=== PATIENT | male | born 1935 | race Caucasian/White ===

== ENCOUNTER → 2016-07-16 11:35 | Day surgery (SDC) | payer MEDICARE, OTHER ==
[~2016-07-16 11:35] MED LIST: Buffered Lidocaine 1% SYR 3ML* 3 ML/SYR SYRINGE INTRADERM ONE; Buffered Lidocaine 1% SYR 3ML* 3 ML/SYR SYRINGE ONE; Famotidine IV* 10 MG/ML 2 ML (20 mg) IV ONE; Famotidine IV* 10 MG/ML 2 ML (20 mg) ONE; KETAMINE HCL* 50 MG/ML 10 ML VIAL ONE; Lidocain 1% EPI 1:100,000 * 30 ML MDV ONE; Midazolam* 1 MG/ML 2 ML VIAL (2 MG) ONE; Propofol* 10 MG/ML 20 ML BTL IV PUSH ONE; ceFAZolin 2 GM PREMIX (*) 2 GM/50 ML BAG IVPB ONE; fentaNYL* 50 MCG/ML 2 ML VIAL (100 MCG VIAL) IV PRN; fentaNYL* 50 MCG/ML 2 ML VIAL (100 MCG VIAL) ONE; oxyCODONE/Acetamin 5/325 MG* TAB PO PRN
[2016-07-16 17:14] VITALS: BP 137/78
== END | disposition home or self-care (01) ==
LOC: OR 11:35
PROVIDERS: ATTEND Plastic Surgery
DX: D04.39 Carcinoma in situ of skin of other parts of face (principal); L57.0 Actinic keratosis; J84.10 Pulmonary fibrosis, unspecified; Z85.820 Personal history of malignant melanoma of skin
CPT/HCPCS: 88305; 88331; 88332; J0690; J2250; J2704; J3010

== ENCOUNTER 2016-11-02 21:12 | Emergency (ER) | payer MEDICARE, OTHER ==
[2016-11-03] MEDS ORDERED: Albuterol/Ipratropium NEB.SOL* Albuterol 2.5 MG/Ipratropium 0.5 MG 3 ML INH ONE (00:07)
[2016-11-03 00:53] LABS: Hematocrit 44 % (42-52); Hemoglobin 14.4 g/dl (14.0-18.0); Mean Corpuscular HGB Conc 33 g/dl (31-36); Mean Corpuscular Hemoglobin 31 pg (27-31); Mean Corpuscular Volume 94 fL (80-94); Mean Platelet Volume 9 um3 (7.4-10.4); Red Blood Count 4.66 10^6/ul (4.0-5.4); Red Cell Distribution Width 14 % (10.5-15); White Blood Count 9.2 10^3/ul (3.5-10.8)
[2016-11-03 01:13] LABS: Albumin 3.7 g/dL (3.2-5.2); BUN/Creatinine Ratio 17.5 (8-20); Calcium 8.9 mg/dL (8.6-10.3); EGFR African American 61.2 (>60); EGFR Non-African American 47.6 (>60); Globulin 3.7 g/dL (2-4); Potassium 4.3 mmol/L (3.5-5.0); Total Bilirubin 0.5 mg/dL (0.2-1.0); Total Protein 7.4 g/dL (6.4-8.9)
[2016-11-03 01:15] LABS: Troponin I 0.01 ng/mL (<0.04)
[2016-11-03] MEDS ORDERED: predniSONE TAB* 20 MG PO ONE (02:00)
[2016-11-03] MEDS ORDERED: Levofloxacin TAB* 500 MG PO ONE (02:06)
--- NOTE | 2016-11-03 02:52 | ED ---
Jhonatan Fortune Anna, scribed for Varun Tovar on 11/03/16 at 0007 . Respiratory - HPI Summary HPI Summary: Patient is an 81 y/o male coming to [facility] presenting with the gradual onset of an intermittent cough that began two days ago. His ribs are sore when he coughs , and he has been wheezing. He describes the severity of his pain as 8/10. His history is significant for pulmonary fibrosis. He denies a history of heart problems. He is not on steroids. - History of Current Complaint Chief Complaint: EDGeneral Stated Complaint: UPPER RESPIRATORY COMPLAINT Time Seen by Provider: 11/02/16 23:54 Hx Obtained From: Patient, Family/Osteologist - accompanied by Onset/Duration: Lasting Days, Still Present Initial Severity: Moderate Current Severity: Moderate Pain Intensity: 8 - /10 Character: Wheezing Associated Signs and Symptoms: Wheezing, Chest Pain with Cough - Allergy/Home Medications Allergies/Adverse Reactions: Allergies Allergy/AdvReac Type Severity Reaction Status Date / Time No Known Allergies Allergy Verified 07/16/16 12:46 PMH/Surg Hx/FS Hx/Imm Hx Endocrine/Hematology History: Denies: Hx Diabetes, Hx Systemic Lupus Erythematosus Cardiovascular History: Reports: Hx Angina, Hx Hypercholesterolemia, Hx Hypertension - on meds, Other Cardiovascular Problems/Disorders - pulmonary fibrosis Denies: Hx Congestive Heart Failure Respiratory History: Denies: Hx Asthma, Hx Chronic Obstructive Pulmonary Disease (COPD) GI History: Denies: Other GI Disorders History: Reports: Hx Kidney Stones - left kidney, Hx Renal Disease - STONES Denies: Hx Dialysis Musculoskeletal History: Reports: Other Musculoskeletal History - chronic torticollis Denies: Hx Rheumatoid Arthritis Sensory History: Reports: Hx Contacts or Glasses - glasses Denies: Hx Hearing Aid Opthamlomology History: Reports: Hx Contacts or Glasses - glasses Psychiatric History: Reports: Hx Anxiety - ON MEDICATION - Cancer History Cancer Type, Location and Year: HX MELANOMA Hx Chemotherapy: No - Surgical History Surgery Procedure, Year, and Place[place] [facility] [place]ITHOTR[place]-URINARY STENTS [place] [facility] [place]ED MELANOMA ON BACK. LEFT SHOULDER DISLOCATION [place] [facility] [place] fracture 2016 Hx Anesthesia Reactions: No Infectious Disease History: Denies: Traveled Outside the [place] in Last 30 Days - Family History Known Family History: Positive: Respiratory Disease - Social History Occupation: Retired Lives: With Family Alcohol Use: Weekly Alcohol Amount: 6-8 DRINKS/WEEK Substance Use Type: Reports: None Smoking Status (MU): Never Smoked Tobacco Type: Cigarettes Have You Smoked in the Last Year: No Review of Systems Positive: Chest Pain - with cough Positive: Cough, Other - wheezing All Other Systems Reviewed And Are Negative: Yes Physical Exam Triage Information Reviewed: Yes Vital Signs On Initial Exam: Initial Vitals Temp Pulse Resp BP Pulse Ox 97.9 F 69 18 151/81 96 11/02/16 21:17 11/02/16 21:17 11/02/16 21:17 11/02/16 21:17 11/02/16 21:17 Vital Signs Reviewed: Yes Appearance: Positive: Well-Appearing, No Pain Distress Skin: Positive: Warm, Skin Color Reflects Adequate Perfusion Head/Face: Positive: Normal Head/Face Inspection Eyes: Positive: EOMI, SOFIYA ENT: Positive: Normal ENT inspection Neck: Positive: Supple, Nontender Respiratory/Lung Sounds: Positive: Breath Sounds Present, Wheezes - occasional, expiratory Cardiovascular: Positive: RRR Abdomen Description: Positive: Nontender, Soft Bowel Sounds: Positive: Present Musculoskeletal: Positive: Normal, Strength/ROM Intact Neurological: Positive: Normal, Sensory/Motor Intact, Alert, Oriented to Person Place, Time Diagnostics - Vital Signs Vital Signs Temp Pulse Resp BP Pulse Ox 11/02/16 21:17 97.9 F 69 18 151/81 96 - Laboratory Result Diagrams: 11/03/16 00:45 11/03/16 00:45 Lab Statement: Any lab studies that have been ordered have been reviewed, and results considered in the medical decision making process. Disposition - Course Course Of Treatment: 81 y/o male presents with SOB. labs and x-rays were done. He has mild dehydration, bronchitis, bronchospasms, and pulmonary fibrosis. He will be sent home with antibiotics and prednisone. - Diagnoses Provider Diagnoses: Dehydration, Pulmonary fibrosis, Bronchitis, Bronchospasm Discharge - Discharge Plan Condition: Stable Disposition: HOME Discharge Disposition Comment: Please follow up with your primary within 2 days. Prescriptions: Albuterol HFA INHALER* [Ventolin HFA Inhaler*] 2 puff INH Q6H PRN #1 mdi PRN Reason: Sob/Wheezing Levofloxacin TAB* [Levaquin TAB*] 500 mg PO DAILY #9 tab Methylprednisolone [Medrol Dosepak 4 MG*] 0 mg PO .SEE FRANCIE INSTRUCTION #1 tab Patient Education Materials: Acute Bronchitis (ED), Bronchospasm (ED), Dehydration (ED) Referrals: Alex Lobo MD [Primary Care Provider] - The documentation as recorded by the Jhonatan woodall Anna accurately reflects the service I personally performed and the decisions made by , Varun Tovar.
--- NOTE | 2016-11-03 03:24 | ED ---
Jhonatan Fortune Anna, scribed for Varun Tovar on 11/03/16 at 0255 . Progress - Progress Note Progress Note: EKG at 0150 indicated a HR of 63 BPM and sinus rhythm with no acute changes. Course/Dx - Course Course Of Treatment: 81 y/o male presents with SOB. labs and x-rays were done. He has mild dehydration, bronchitis, bronchospasms, and pulmonary fibrosis. He will be sent home with antibiotics and prednisone. - Diagnoses Provider Diagnoses: Dehydration, Pulmonary fibrosis, Bronchitis, Bronchospasm The documentation as recorded by the Jhonatan woodall Anna accurately reflects the service I personally performed and the decisions made by La fam Emmanuel.
[2016-11-03 05:49] VITALS: BP 140/73
--- NOTE | 2016-11-03 09:54 | RAD ---
INDICATION: Shortness of breath. COMPARISON: Most recent comparison chest x-rays dated January 23, 2016 TECHNIQUE: Single AP portable view of the chest was obtained. FINDINGS: Image quality is compromised due to the relative inferiority of a portable chest x-ray. Similar to the previous chest x-ray there is mild cardiomegaly. The patient appears to be rotated towards his left. The lung volumes appear hypoplastic relative to the previous chest x-ray which could similar be the consequence of reduced inspiratory effort. The diaphragm and costophrenic angles, within the limitations of portable chest x-ray, are adequately defined. Visualized bones are normal for the patient's age. IMPRESSION: Appearance of reduced lung volumes is likely the consequence of poor inspiratory effort. There are no definite acute cardiopulmonary abnormalities on this limited portable chest x-ray.
== END 2016-11-03 02:30 | disposition home or self-care (01) ==
LOC: ED 21:12
DX: J20.9 Acute bronchitis, unspecified (principal); E86.0 Dehydration; J84.10 Pulmonary fibrosis, unspecified; R06.2 Wheezing; R07.9 Chest pain, unspecified; R05 Cough
CPT/HCPCS: 36415; 71010; 80053; 83880; 84484; 85025; 85379; 85610; 85730; 93005; 94640; 99282; A9270-GY; J7512

== ENCOUNTER 2017-03-11 06:33 | Day surgery (SDC) | payer MEDICARE, OTHER ==
[~2017-03-11 06:33] MED LIST changes: +Buffered Lidocaine 0.9% SYRIN* 5 ML/SYR SYRINGE INTRADERM ONE; -Buffered Lidocaine 1% SYR 3ML* 3 ML/SYR SYRINGE INTRADERM ONE; -Buffered Lidocaine 1% SYR 3ML* 3 ML/SYR SYRINGE ONE; -Famotidine IV* 10 MG/ML 2 ML (20 mg) IV ONE; -Famotidine IV* 10 MG/ML 2 ML (20 mg) ONE; -KETAMINE HCL* 50 MG/ML 10 ML VIAL ONE; -Lidocain 1% EPI 1:100,000 * 30 ML MDV ONE; -Midazolam* 1 MG/ML 2 ML VIAL (2 MG) ONE; +NS 0.9% 1000 ML* 1,000 ML IV SCH; -Propofol* 10 MG/ML 20 ML BTL IV PUSH ONE; -ceFAZolin 2 GM PREMIX (*) 2 GM/50 ML BAG IVPB ONE; -fentaNYL* 50 MCG/ML 2 ML VIAL (100 MCG VIAL) IV PRN; -fentaNYL* 50 MCG/ML 2 ML VIAL (100 MCG VIAL) ONE; -oxyCODONE/Acetamin 5/325 MG* TAB PO PRN
[2017-03-11] MEDS ORDERED: ceFAZolin 2 GM PREMIX (*) 50 ML IVPB ONE (06:48)
[2017-03-11] MEDS ORDERED: Buffered Lidocaine 0.9% SYRIN* 5 ML/SYR SYRINGE ONE (06:48)
[2017-03-11] MEDS ORDERED: Lidocaine 1% MPF wEPI 200,000* 30 ML SDV ONE (07:21)
[2017-03-11] MEDS ORDERED: Mineral Oil Sterile, TOPICAL* 25 ML BTL ONE (07:21)
[2017-03-11] MEDS ORDERED: Bupivacaine 0.25% SDV* 30 ML ONE (07:21)
[2017-03-11] MEDS ORDERED: Midazolam* 1 MG/ML 2 ML VIAL (2 MG) ONE (07:27)
[2017-03-11] MEDS ORDERED: KETAMINE HCL* 50 MG/ML 10 ML VIAL ONE (07:56)
[2017-03-11] MEDS ORDERED: Famotidine IV* 10 MG/ML 2 ML (20 mg) ONE (07:56)
[2017-03-11] MEDS ORDERED: Lidocaine 2% PF * 5 ML VIAL ONE (07:56)
[2017-03-11] MEDS ORDERED: fentaNYL* 50 MCG/ML 2 ML VIAL (100 MCG VIAL) ONE (07:56)
[2017-03-11] MEDS ORDERED: Propofol* 10 MG/ML 20 ML BTL IV PUSH ONE (07:56)
[2017-03-11] MEDS ORDERED: PROCHLORPERAZINE INJ 5 MG/ML 2 ML VIAL IV PRN (09:22)
[2017-03-11] MEDS ORDERED: Acetaminophen TAB* 325 MG PO PRN (09:22)
[2017-03-11] MEDS ORDERED: DiMENhydriNATE IV* 50 MG/ML VIAL IV PUSH PRN (09:22)
[2017-03-11 10:07] VITALS: BP 128/71
== END 2017-03-11 10:07 | disposition home or self-care (01) ==
LOC: OR 06:33
PROVIDERS: ATTEND Plastic Surgery
DX: L57.0 Actinic keratosis (principal); R91.8 Other nonspecific abnormal finding of lung field; J84.10 Pulmonary fibrosis, unspecified; Z85.820 Personal history of malignant melanoma of skin; F32.9 Major depressive disorder, single episode, unspecified; I10 Essential (primary) hypertension; Z88.1 Allergy status to other antibiotic agents; Z79.82 Long term (current) use of aspirin
CPT/HCPCS: 88305; 88331; 88332; A9270-GY; J0690; J2001; J2250; J2704; J3010

== ENCOUNTER 2017-12-02 11:55 | Day surgery (SDC) | payer MEDICARE, OTHER ==
[~2017-12-02 11:55] MED LIST changes: +Dexamethasone IV* 4 MG/ML 1 ML (4 MG) IV SLOW PU ONE; +Famotidine IV* 10 MG/ML 2 ML (20 mg) IV ONE; -NS 0.9% 1000 ML* 1,000 ML IV SCH
[2017-12-02] MEDS ORDERED: Famotidine IV* 10 MG/ML 2 ML (20 mg) ONE (12:13)
[2017-12-02] MEDS ORDERED: Dexamethasone IV* 4 MG/ML 1 ML (4 MG) ONE (12:13)
[2017-12-02] MEDS ORDERED: ceFAZolin 2 GM PREMIX (*) 2 GM/50 ML BAG IVPB ONE (12:14)
[2017-12-02] MEDS ORDERED: Ondansetron ODT TAB* 4 MG ONE (12:14)
[2017-12-02] MEDS ORDERED: Ondansetron ODT TAB* 4 MG PO ONE (12:49)
[2017-12-02] MEDS ORDERED: fentaNYL* 50 MCG/ML 2 ML VIAL (100 MCG VIAL) ONE (15:11)
[2017-12-02] MEDS ORDERED: Midazolam* 1 MG/ML 2 ML VIAL (2 MG) ONE ×2 (15:11→16:30)
[2017-12-02] MEDS ORDERED: Lidocain 1% EPI 1:100,000 * 30 ML MDV ONE (15:46)
[2017-12-02] MEDS ORDERED: Mineral Oil Sterile, TOPICAL* 25 ML BTL ONE (15:46)
[2017-12-02] MEDS ORDERED: Bupivacaine 0.25% SDV* 30 ML ONE (15:46)
[2017-12-02] MEDS ORDERED: Naloxone* 0.4 MG/ML 1 ML VIAL IV PRN (15:59)
[2017-12-02 18:14] VITALS: BP 142/86
== END 2017-12-02 18:36 | disposition home or self-care (01) ==
LOC: OR 11:55
PROVIDERS: ATTEND Plastic Surgery
DX: C44.329 Squamous cell carcinoma of skin of other parts of face (principal); Z85.820 Personal history of malignant melanoma of skin; Z85.828 Personal history of other malignant neoplasm of skin; N18.3 Chronic kidney disease, stage 3 (moderate); K21.9 Gastro-esophageal reflux disease without esophagitis; F32.9 Major depressive disorder, single episode, unspecified; J84.10 Pulmonary fibrosis, unspecified; M43.6 Torticollis; I50.32 Chronic diastolic (congestive) heart failure
CPT/HCPCS: 88305; 88329; A9270-GY; J0690; J1100; J2250; J3010

== ENCOUNTER 2018-01-22 14:26 | Emergency (ER) | payer MEDICARE, OTHER ==
--- OUTSIDE RECORDS SUMMARY | 2018-01-22 14:34 | XMS REPORT ---
:1936 External Reference #:[id number] Author Organization [employer] Address [address] [facility] [address] [place] [address] [place] [address] Phone [phone] Care Team Providers Name Role Phone Alex Lobo MD Primary Care Physician Unavailable Payers Type Date Identification Numbers Payment Provider Subscriber Medicare Primary Policy Number: [id number] Medicare Da Garcia PayID: [id number] [address] [place] [address] [facility] Policy Number: [id number] [employer] Da Garcia Group Number: [id number] [address] PayID: [id number] [place] [address] Problems Date Description Provider Status Onset: 07/14/2017 Chronic kidney disease stage 3 Alex Lobo M.D., FACP Active Onset: 01/27/2014 Diffuse interstitial pulmonary Alex Lobo M.D., FACP Active fibrosis Note: UIP Onset: 03/10/2013 Chronic diastolic heart failure [place] [facility] Schedule Active Onset: 03/19/2012 Overlapping malignant melanoma of Ruthann Basurto skin Berna,FACP Onset: 05/23/2014 Major depression in remission Ruthann Basurto M.D.,FACP Onset: 04/29/2007 Gastroesophageal reflux disease Ruthann Basurto M.D.,FACP Onset: 04/29/2007 Spasmodic torticollis Ruthann Basurto M.D.,FACP Onset: 07/08/2007 Benign neoplasm of colon Ruthann Basurto M.D.,FACP Onset: 04/12/2011 Conduction disorder of the heart Dilcia Pepe M.D. Active Onset: 05/23/2014 Uric acid urolithiasis Ruthann Basurto M.D.,FACP Onset: 06/01/2015 Idiopathic pulmonary fibrosis Ruthann Basurto M.D.FACP Onset: 07/20/2015 Closed fracture of clavicle Radha Oneil MD Active Onset: 12/11/2015 Obesity Radha Oneil MD Active Onset: 03/26/2017 [place] Ruthann Basurto M.D.,MEGGANP Note: RT Onset: 11/11/2017 Current tear of medial Alin Milligan MD Active cartilage AND/OR meniscus of knee Onset: 04/29/2007 Backache Alex Lobo M.D.,FACP Inactive Inactive: 05/25/2013 Onset: 03/08/2013 Conduction disorder of the Alex Lobo M.D.,FACP Inactive heart Inactive: 05/25/2013 Onset: 03/31/2013 Chest pain David Milian M.D. Inactive Inactive: 05/25/2013 Onset: 03/10/2013 Difficulty breathing [place] [facility] Schedule Inactive Inactive: 01/27/2014 Onset: 04/29/2007 Recurrent major depressive Alex Lobo M.D.,FACP Inactive episodes Inactive: 05/23/2014 Onset: 07/06/2012 Disorder of skin AND/OR Dany Treviño M.D. Inactive subcutaneous tissue Inactive: 05/23/2014 Onset: 07/13/2013 Dyspnea Astrid Yang M.D. Inactive Inactive: 05/23/2014 Onset: 05/25/2013 Kidney stone Alex Lobo M.D.,FACP Inactive Inactive: 05/23/2014 Onset: 12/16/2014 Idiopathic Pulmonary Fibrosis Radha Oneil MD Inactive Inactive: 06/01/2015 Onset: 04/29/2007 Blood in urine Alex Lobo M.D.,FACP Resolved Resolved: 05/25/2013 Family History Date Family Member(s) Problem(s) Comments General Cancer General Dementia : (age 81 Father due to Cancer, ? Years) Pancreatic Mother Hypertension age 81. CVA Mother due to Stroke () Siblings 7 youngest of 8 siblings. all older siblings as of 2012. no premature CAD. First Brother Cancer, Lung First Brother due to Cancer, () Lung First Brother Heart Valve replacement 79yo Second Brother due to steamboat pilot in () WW2, killed in action Third Brother due to Stroke () - complication of heart surgery Fifth Brother due to () Alzheimer's Disease First Sister Cancer myeloma? 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 Cigarette Use Never Smoked Cigarettes ETOH Use Rarely consumes alcohol Patient states he may consume alcohol once a week Recreational Drug Use Denies Drug Use Smoking Patient has never smoked Daily Caffeine Does Not Consume Caffeine Exercise Type/Frequency Exercises sporadically General Hx Text 3 children, alive and well Allergies, Adverse Reactions, Alerts Date Description Reaction Status Severity Comments 11/18/2016 Levofloxacin active 04/29/2007 NKDA inactive Medications Medication Date Status Form Strength Qnty SIG Indications Ordering Provider Forearm 02/26/ Active M76.62 Chris Mar 2016 Berna Bearden Diltiazem CD 10/29/ Active Caps ER 120mg 90cap 1 by mouth David 2016 24HR s every day Enid Milian M.D. Aspirin 11/14/ Active Tablets 81mg 1 by mouth Alex 2014 every day Mervin Lobo M.D.,FACP Sertraline HCL 11/14/ Active Tablets 50mg 90tab take 1 F32.9 Alex 2014 s tablet by darling Bain every MStewart,FACP day Botox / Active Solution 100Unit 12-14 Unknown 0000 Rec injections every 3 months Ofev 00/ Active Capsules 100mg 1 tab by Unknown 0000 mouth twice a day Allopurinol / Active Tablets 100mg 90tab 1 by mouth Alex 0000 s every day Mervin Lobo M.D.,FACP Medrol 11/07/ Hx Tablets 4mg 1pak medrol Alex 2017 - dosepack as Mervin Lobo, MStewart,FACP 2017 Levaquin 11/07/ Hx Tablets 500mg 7tabs 1 by mouth Alex 2017 - every day x Mervin Lobo, days M.Mervin,FACP 2016 Aspirin 01/22/ Hx Tablets 325mg 2 by mouth R07.9 David 2016 - every 6 hour F. 05/13/ as needed Kati, 2015 for pain. M.D. Protonix 01/22/ Hx Tablets DR 30tab 1 tab by R07.9 David 2015 - s mouth every F. 01/22/ day. Kati, 2015 M.D. Protonix 01/22/ Hx Tablets DR 40mg 30tab 1 by mouth R07.9 David 2015 - s every day F. 03/06/ Pt states he Kati, 2015 is no longer M.D. taking Hydrocodone-Ac 07/19/ Hx Tablets 5-325mg 60tab 1 by mouth Dirk etaminophen 2015 - s every 4-6 Suleiman, 09/28/ hours prn. M.D. 2015 Allopurinol 11/24/ Hx Tablets 100mg 180ta 2 by mouth Alex 2015 - bs every day Mervin Lobo, 01/21/ M.D.,FACP 2015 Fluoxetine HCL 11/14/ Hx Capsules 20mg 90cap 1 by mouth Alex 2014 - s every day Mervin Lobo, 11/14/ M.D.,FACP 2014 Fluoxetine HCL 11/14/ Hx Capsules 10mg 14cap every Alex 2014 - s morning for Mervin Lobo, 11/28/ 2 wks then M.D.,FACP 2014 stop Omeprazole 05/23/ Hx Capsules DR 20mg 90cap 1 by mouth Alex 2014 - s every day Mervin Lobo, 06/30/ M.D.,FACP 2014 Amoxicillin/Cl 11/23/ Hx Tablets 875-125mg 14tab 1 tab twice 461.0 Lety avulanate 2013 - s a day x 7 Barry, Potassium 01/07/ days N.P. 2013 Fluticasone 11/23/ Hx Suspension 50mcg/Act 1bott 2 spray in 461.0 Lety Propionate 2013 - le each nostril Barry, 01/27/ in am prn N.P. 2013 Lorazepam 04/21/ Hx Tablets 0.5mg 90tab 1 tab po q8h Arnie Diaz 2012 - s prn neck Abby, 05/30/ spasms Berna 2012 Metoprolol 03/31/ Hx Tablets ER 25mg 90tab 1/2 by mouth David Succinate ER 2013 - 24HR s every other F. 12/09/ day x 4 Mauser, 2017 doses M.D. starting 11/18/16 then discontinue Aspir-81 03/31/ Hx Tablets DR 81mg 100ta 1 po qd David 2012 - bs F. 11/14/ Kati, 2014 M.D. Cephalexin 07/06/ Hx Capsules 500mg 10cap 1 po bid 709.9 Dany Champagne 2013 - s Kamila, 01/05/ MMartha. 2013 Cialis 03/24/ Hx Tablets 5mg 18tab 1 tab po qd 302.72 Lety 2011 - s prn Barry, 04/21/ N.P. 2012 Cromolyn 03/24/ Hx Solution 4% 1ml 1-2 gtt in 372.14 Alex Ny 2012 - eye(s) Mervin Lobo, 4-6x/day M.DWillow,FACP 2012 Indomethacin 11/13/ Hx Capsules 50mg 10cap 1 po bid for 274.9 Alex 2011 - s 2 days, then Mervin Lobo, qd prn M.D.,FACP 2012 Antivert 02/20/ Hx Tablets 25mg 30tab 1 tab bid 780.4 Imer 2010 - s Pachikara 03/08/ , Gabe. 2009 Baclofen 07/08/ Hx Tablets 10mg tid Alex 2008 Edwardo Lobo, 02/20/ MStewart,FACP 2009 Nexium 04/29/ Hx Capsules DR 20mg qd prn 466.0 Alex 2007 Edwardo Lobo, 07/08/ Berna,FACP 2007 Fluoxetine HCL 04/29/ Hx Capsules 20mg 90cap po qd 466.0 Dilcia 2006 - s Afshin, 04/12/ M.D. 2010 Amoxicillin 04/29/ Hx Capsules 500mg 28cap 2 bid for 7 466.0 Alex 2006 - s odessa Lobo, 07/08/ MWillowD.,FACP 2007 Potassium /00/ Hx Tablets ER 10Meq 4 po qd Unknown Citrate ER 0000 - (1080 mg) 2014 Fluoxetine HCL / Hx Capsules 20mg 90cap 1 by mouth Alex 0000 Edwardo zavala every day Mervin Lobo, M.D.,FACP 2013 Allopurinol / Hx Tablets 300mg 30tab 1 po qd Unknown 0000 - s 2014 Omeprazole / Hx Capsules DR 20mg Imbler, 0000 - Matt, 03/30/ 2013 Ofev / Hx Capsules 150mg 1 capsule by Unknown 0000 - mouth twice 10/02/ day 2015 Prednisolone /00/ Hx Suspension 1% as directed Vinh Valero 0000 - (pt not Joe Diaz, 06/01/ using) 2014 Burke /00/ Hx Tablets 5-325mg 1-2 by mouth Unknown 0000 - every 4 09/28/ hours as 2016 needed Prednisolone /00/ Hx Suspension 1 gtt to Unknown Acetate 0000 - left eye tid 2016 Gentak / Hx Ointment 0.3% 1/4 inch Unknown 0000 - oint to left 01/28/ eye qid as 2017 directed Metoprolol /00/ Hx Tablets ER 25mg 1 by mouth Unknown Succinate ER 0000 - 24HR every day 2016 Medications Administered in Office Medication Date Status Form Strength Qnty SIG Indications Ordering Provider Triamcinolone 11/11 Administered Injection Alin (Kenalog) /2017 MD Srini Injection 10/14 Administered Injection Arnie Diaz Onabotulinumtoxin /2017 Sergio Mora, 1 Unit M.D. Injection 07/09 Administered Injection Arnie Diaz Onabotulinumtoxin /2017 Sergio Mora, 1 Unit M.D. Injection 02/18 Administered Injection Arnie Diaz Onabotulinumtoxin /2016 Sergio Mora 1 Unit M.D. Injection 02/18 Administered Injection Arnie S. Onabotulinumtoxin /2016 Abby, A, 1 Unit M.D. Injection 11/04 Administered Injection Arnie S. Onabotulinumtoxin /2016 Metamora, A, 1 Unit M.D. Injection 11/04 Administered Injection Arnie S. Onabotulinumtoxin /2016 [place]ora, A, 1 Unit M.D. Injection 05/14 Administered Injection Arnie S. Onabotulinumtoxin /2015 [place], A, 1 Unit M.D. Injection 05/14 Administered Injection Arnie S. Onabotulinumtoxin /2015 Abby, A, 1 Unit M.D. Injection 01/22 Administered Injection Arnie S. Onabotulinumtoxin /2015 [place]ora, A, 1 Unit M.D. Injection 01/22 Administered Injection Arnie S. Onabotulinumtoxin /2015 [place]ora, A, 1 Unit M.D. Injection 10/02 Administered Injection Arnie S. Onabotulinumtoxin /2015 Abby, A, 1 Unit M.D. Injection 06/07 Administered Injection Arnie S. Onabotulinumtoxin /2014 [place]ora, A, 1 Unit M.D. Injection 03/07 Administered Injection Arnie S. Onabotulinumtoxin /2014 Abby, A, 1 Unit M.D. Injection 10/25 Administered Injection Arnie S. Onabotulinumtoxin /2014 Abby, A, 1 Unit M.D. Injection 07/27 Administered Injection Arnie S. Onabotulinumtoxin /2014 Abby, A, 1 Unit M.D. Injection 04/26 Administered Injection Arnie S. Onabotulinumtoxin /2013 Abby, A, 1 Unit M.D. Injection 01/21 Administered Injection Arnie S. Onabotulinumtoxin /2013 Abby, A, 1 Unit M.D. Injection 01/21 Administered Injection Arnie S. Onabotulinumtoxin /2013 [place], A, 1 Unit M.D. Injection 10/22 Administered Injection Arnie S. Onabotulinumtoxin /2013 Abby, A, 1 Unit M.D. Injection 10/22 Administered Injection Arnie S. Onabotulinumtoxin /2013 [place]ora, A, 1 Unit M.D. Injection 04/21 Administered Injection Arnie S. Onabotulinumtoxin /2012 Abby, A, 1 Unit M.D. Injection 04/21 Administered Injection Arnie S. Onabotulinumtoxin /2012 Abby, A, 1 Unit M.D. Injection 01/13 Administered Injection Arnie S. Onabotulinumtoxin /2012 Abby, A, 1 Unit M.D. Injection 01/13 Administered Injection Arnie S. Onabotulinumtoxin /2012 Abby, A, 1 Unit M.D. Injection 10/02 Administered Injection Arnie S. Onabotulinumtoxin /2012 Abby, A, 1 Unit M.D. Injection 10/02 Administered Injection Arnie S. Onabotulinumtoxin /2012 Abby, A, 1 Unit M.D. Injection 05/19 Administered Injection Arnie S. Onabotulinumtoxin /2011 [place]ora, A, 1 Unit M.D. Injection 05/19 Administered Injection Arnie S. Onabotulinumtoxin /2011 [place], A, 1 Unit M.D. Injection 02/09 Administered Injection Arnie S. Onabotulinumtoxin /2011 [place], A, 1 Unit M.D. Immunizations CPT Code Status Date Vaccine Lot # [id number] Given 03/26/2017 Influenza Virus Vaccine, Quadrivalent, Split, [id number] Preservative Free 75911 Given 04/12/2016 Influenza Virus Vaccine, Quadrivalent, Split [id number] Virus, [place] Use 11907 Given 04/12/2015 Influenza Virus Vaccine, Quadrivalent, Split, [id number] Preservative Free 35970 Given 04/01/2014 Influenza Virus Vaccine, Quadrivalent, Split, [id number] Preservative Free 57040 Given 04/01/2014 Pneumococcal Conjugate Vaccine 13 Valent For Intramuscular Use 04322 Given 04/01/2014 Pneumococcal Conjugate Vaccine 13 Valent For [id number] Intramuscular Use 50385 Given 04/30/2013 Flu Vaccine Split Virus Preservative Free For [id number] Indiv 3Yr Older Q2038 Given 03/24/2012 Fluzone Vaccine [id number] 92663 Given 03/24/2012 Tdap - Tetanus/Diptheria/Acellular Pertussis [id number] Q2038 Given 04/12/2011 Fluzone Vaccine [id number] 57361 Given 05/09/2010 Pneumonia Vaccine 68240 Given 04/08/2010 Influenza Virus 3Yrs & Over 12152 Given 07/18/2008 Zoster (Zostavax) 17454 Given 07/18/2008 Zoster (Zostavax) 61557 Given 07/18/2008 Zoster (Zostavax) [id number] 00201 Given 05/14/2007 Influenza Virus 3Yrs & Over 55935 Given 05/14/2007 Influenza Virus 3Yrs & Over 14460 Given 05/14/2007 Influenza Virus 3Yrs & Over [id number] Vital Signs Date Vital Result Comment 12/29/2017 Height 69.25 inches 5'9.25" Weight 213.50 lb Heart Rate 76 /min BP Systolic Sitting 134 mmHg Lue large cuff BP Diastolic Sitting 74 mmHg Lue large cuff Respiratory Rate 16 /min O2 % BldC Oximetry 96 % On Ra BMI (Body Mass Index) 31.3 kg/m2 12/23/2017 Height 69.25 inches 5'9.25" Weight 230.00 lb BP Systolic Sitting 118 mmHg BP Diastolic Sitting 74 mmHg Respiratory Rate 16 /min Body Temperature 97.4 F Pain Level 0 BMI (Body Mass Index) 33.7 kg/m2 11/11/2017 Height 69.25 inches 5'9.25" Weight 230.00 lb BP Systolic 122 mmHg BP Diastolic 82 mmHg Respiratory Rate 18 /min Body Temperature 97.6 F Pain Level 9 BMI (Body Mass Index) 33.7 kg/m2 11/04/2017 Height 69.25 inches 5'9.25" Weight 230.00 lb w/ shoes Heart Rate 64 /min reg BP Systolic Sitting 120 mmHg Lue BP Diastolic Sitting 84 mmHg Lue Respiratory Rate 18 /min BMI (Body Mass Index) 33.7 kg/m2 Ejection Fraction 55-60% as of 01/2016 echo 10/14/2017 Height 69.25 inches 5'9.25" Weight 224.00 lb Heart Rate 68 /min BP Systolic Sitting 138 mmHg BP Diastolic Sitting 76 mmHg Respiratory Rate 16 /min BMI (Body Mass Index) 32.8 kg/m2 07/14/2017 Height 69.25 inches 5'9.25" Weight 235.50 lb Heart Rate 74 /min BP Systolic Sitting 138 mmHg BP Diastolic Sitting 82 mmHg Body Temperature 96.5 F O2 % BldC Oximetry 97 % BMI (Body Mass Index) 34.5 kg/m2 07/09/2017 Height 69.25 inches 5'9.25" Weight 232.25 lb Heart Rate 70 /min BP Systolic 132 mmHg BP Diastolic 78 mmHg BMI (Body Mass Index) 34.0 kg/m2 06/16/2017 Height 69.25 inches 5'9.25" Weight 234.00 lb Heart Rate 80 /min BP Systolic Sitting 124 mmHg BP Diastolic Sitting 82 mmHg Respiratory Rate 14 /min O2 % BldC Oximetry 98 % BMI (Body Mass Index) 34.3 kg/m2 03/26/2017 Height 69.25 inches 5'9.25" Weight 232.00 lb Heart Rate 74 /min BP Systolic Sitting 122 mmHg BP Diastolic Sitting 80 mmHg Body Temperature 97.4 F O2 % BldC Oximetry 98 % BMI (Body Mass Index) 34.0 kg/m2 03/26/2017 Heart Rate 68 /min BP Systolic Sitting 136 mmHg BP Diastolic Sitting 80 mmHg Body Temperature 97.6 F 02/26/2017 Height 68.5 inches 5'8.50" Weight 230.00 lb Heart Rate 64 /min BP Systolic Sitting 132 mmHg BP Diastolic Sitting 82 mmHg Body Temperature 96.3 F Pain Level 8 BMI (Body Mass Index) 34.5 kg/m2 02/18/2017 Height 69 inches 5'9" Weight 225.00 lb Heart Rate 78 /min BP Systolic Sitting 142 mmHg BP Diastolic Sitting 80 mmHg Respiratory Rate 16 /min BMI (Body Mass Index) 33.2 kg/m2 01/29/2017 Height 69 inches 5'9" Weight 234.50 lb with shoes Heart Rate 80 /min BP Systolic Sitting 132 mmHg LA reg cuff BP Diastolic Sitting 76 mmHg LA reg cuff BP Systolic Standing 126 mmHg la repeat sitting BP Diastolic Standing 72 mmHg la repeat sitting BMI (Body Mass Index) 34.6 kg/m2 Ejection Fraction 55% - 60% echo 02/21/16 12/13/2016 Height 69 inches 5'9" Weight 233.00 lb Heart Rate 76 /min BP Systolic Sitting 150 mmHg BP Diastolic Sitting 90 mmHg Respiratory Rate 16 /min O2 % BldC Oximetry 97 % room air BMI (Body Mass Index) 34.4 kg/m2 11/18/2016 Height 69 inches 5'9" Weight 230.25 lb with shoes Heart Rate 64 /min BP Systolic Sitting 138 mmHg LA reg cuff BP Diastolic Sitting 80 mmHg LA reg cuff BMI (Body Mass Index) 34.0 kg/m2 Ejection Fraction 55%-60% echo 02/21/16 11/07/2016 Weight 234.00 lb Heart Rate 73 /min BP Systolic Sitting 110 mmHg BP Diastolic Sitting 64 mmHg Body Temperature 97.9 F O2 % BldC Oximetry 97 % 11/04/2016 Height 69 inches 5'9" Weight 228.00 lb Heart Rate 85 /min BP Systolic Sitting 130 mmHg BP Diastolic Sitting 76 mmHg Respiratory Rate 16 /min BMI (Body Mass Index) 33.7 kg/m2 10/29/2016 Height 69 inches 5'9" Weight 235.00 lb w/shoes Heart Rate 74 /min BP Systolic Sitting 160 mmHg LA lg cuff BP Diastolic Sitting 90 mmHg LA lg cuff BP Systolic Standing 143 mmHg la repeat sitting BP Diastolic Standing 79 mmHg la repeat sitting BMI (Body Mass Index) 34.7 kg/m2 Ejection Fraction 55-60% Echo 02/21/16 06/14/2016 Height 69 inches 5'9" Weight 235.00 lb Heart Rate 82 /min BP Systolic Sitting 140 mmHg BP Diastolic Sitting 82 mmHg Respiratory Rate 14 /min O2 % BldC Oximetry 97 % BMI (Body Mass Index) 34.7 kg/m2 05/14/2016 Height 69 inches 5'9" Weight 235.00 lb Heart Rate 72 /min BP Systolic Sitting 142 mmHg BP Diastolic Sitting 80 mmHg BMI (Body Mass Index) 34.7 kg/m2 03/06/2016 Height 69 inches 5'9" Weight 235.00 lb w/shoes Heart Rate 72 /min BP Systolic Sitting 140 mmHg LA reg cuff BP Diastolic Sitting 84 mmHg LA reg cuff BMI (Body Mass Index) 34.7 kg/m2 Ejection Fraction 55-60% Echo 02/21/16 01/23/2016 Height 69 inches 5'9" Weight 230.00 lb Heart Rate 68 /min BP Systolic Sitting 118 mmHg BP Diastolic Sitting 68 mmHg Respiratory Rate 14 /min BMI (Body Mass Index) 34.0 kg/m2 01/23/2016 Height 69 inches 5'9" Weight 232.00 lb w/shoes Heart Rate 66 /min BP Systolic Sitting 166 mmHg LA lg cuff BP Diastolic Sitting 86 mmHg LA lg cuff BP Systolic Lying Down 132 mmHg la repeat sitting BP Diastolic Lying Down 70 mmHg la repeat sitting BMI (Body Mass Index) 34.3 kg/m2 Ejection Fraction 55% Cath 07/16/13 12/11/2015 Height 69 inches 5'9" Weight 222.00 lb Heart Rate 70 /min BP Systolic 134 mmHg BP Diastolic 84 mmHg Respiratory Rate 14 /min O2 % BldC Oximetry 98 % BMI (Body Mass Index) 32.8 kg/m2 10/03/2015 Height 69 inches 5'9" Weight 222.00 lb Heart Rate 62 /min BP Systolic Sitting 120 mmHg BP Diastolic Sitting 70 mmHg Respiratory Rate 17 /min BMI (Body Mass Index) 32.8 kg/m2 07/24/2015 Height 69 inches 5'9" Weight 221.00 lb BMI (Body Mass Index) 32.6 kg/m2 07/20/2015 Height 69 inches 5'9" Weight 221.00 lb Heart Rate 60 /min BP Systolic 122 mmHg BP Diastolic 80 mmHg BMI (Body Mass Index) 32.6 kg/m2 07/12/2015 Height 69 inches 5'9" Weight 221.00 lb Heart Rate 54 /min BP Systolic Sitting 125 mmHg BP Diastolic Sitting 77 mmHg Respiratory Rate 18 /min Body Temperature 98.3 F Pain Level 7 BMI (Body Mass Index) 32.6 kg/m2 06/12/2015 Height 67.50 inches 5'7.50" Weight 220.00 lb reported Heart Rate 72 /min BP Systolic 134 mmHg BP Diastolic 72 mmHg Respiratory Rate 14 /min O2 % BldC Oximetry 97 % BMI (Body Mass Index) 33.9 kg/m2 06/07/2015 Height 67.50 inches 5'7.50" Heart Rate 68 /min BP Systolic Sitting 112 mmHg BP Diastolic Sitting 72 mmHg Respiratory Rate 16 /min 06/01/2015 Height 67.50 inches 5'7.50" Weight 220.50 lb Heart Rate 92 /min BP Systolic Sitting 120 mmHg BP Diastolic Sitting 68 mmHg Body Temperature 97.9 F O2 % BldC Oximetry 98 % BMI (Body Mass Index) 34.0 kg/m2 03/16/2015 Heart Rate 74 /min BP Systolic Sitting 132 mmHg BP Diastolic Sitting 68 mmHg Respiratory Rate 20 /min O2 % BldC Oximetry 96 % 03/07/2015 Height 63 inches 5'3" Weight 224.00 lb Heart Rate 76 /min BP Systolic Sitting 110 mmHg BP Diastolic Sitting 68 mmHg Respiratory Rate 17 /min BMI (Body Mass Index) 39.7 kg/m2 12/23/2014 Height 63 inches 5'3" Weight 223.00 lb Heart Rate 66 /min BP Systolic Sitting 124 mmHg BP Diastolic Sitting 78 mmHg Body Temperature 96.4 F O2 % BldC Oximetry 97 % BMI (Body Mass Index) 39.5 kg/m2 12/16/2014 Height 63 inches 5'3" Weight 223.00 lb Heart Rate 66 /min BP Systolic Sitting 118 mmHg left arm, reg cuff BP Diastolic Sitting 70 mmHg left arm, reg cuff Respiratory Rate 20 /min Body Temperature 97.8 F Temporal O2 % BldC Oximetry 97 % Room air BMI (Body Mass Index) 39.5 kg/m2 Neck Circumference in inches 19 11/14/2014 Height 63 inches 5'3" Weight 222.25 lb Heart Rate 70 /min BP Systolic Sitting 117 mmHg BP Diastolic Sitting 52 mmHg Body Temperature 97.8 F O2 % BldC Oximetry 97 % BMI (Body Mass Index) 39.4 kg/m2 10/25/2014 Height 63 inches 5'3" Heart Rate 56 /min BP Systolic Sitting 120 mmHg BP Diastolic Sitting 68 mmHg Respiratory Rate 16 /min 07/27/2014 Height 63 inches 5'3" Weight 238.00 lb Heart Rate 64 /min BP Systolic Sitting 134 mmHg BP Diastolic Sitting 78 mmHg Respiratory Rate 16 /min BMI (Body Mass Index) 42.2 kg/m2 05/23/2014 Height 68 inches 5'8" Weight 243.25 lb Heart Rate 80 /min BP Systolic Sitting 136 mmHg BP Diastolic Sitting 82 mmHg Body Temperature 98.0 F BMI (Body Mass Index) 37.0 kg/m2 04/26/2014 Height 68 inches 5'8" Weight 239.00 lb Heart Rate 60 /min BP Systolic Sitting 132 mmHg BP Diastolic Sitting 74 mmHg Respiratory Rate 12 /min BMI (Body Mass Index) 36.3 kg/m2 04/21/2014 Height 68 inches 5'8" Weight 239.25 lb Heart Rate 60 /min BP Systolic Sitting 130 mmHg BP Diastolic Sitting 92 mmHg Body Temperature 97.2 F BMI (Body Mass Index) 36.4 kg/m2 03/02/2014 Height 68 inches 5'8" Weight 240.50 lb Heart Rate 72 /min BP Systolic Sitting 130 mmHg BP Diastolic Sitting 78 mmHg Body Temperature 96.7 F BMI (Body Mass Index) 36.6 kg/m2 01/27/2014 Height 67.75 inches 5'7.75" Weight 238.50 lb Heart Rate 64 /min BP Systolic Sitting 132 mmHg BP Diastolic Sitting 72 mmHg Body Temperature 97.5 F BMI (Body Mass Index) 36.5 kg/m2 01/21/2014 Height 68 inches 5'8" Weight 241.00 lb Heart Rate 67 /min BP Systolic Sitting 120 mmHg BP Diastolic Sitting 78 mmHg Respiratory Rate 18 /min BMI (Body Mass Index) 36.6 kg/m2 11/30/2013 Height 68 inches 5'8" Weight 241.38 lb Heart Rate 64 /min BP Systolic Sitting 154 mmHg LA reg cuff BP Diastolic Sitting 88 mmHg LA reg cuff Respiratory Rate 16 /min BMI (Body Mass Index) 36.7 kg/m2 11/23/2013 Height 68 inches 5'8" Weight 242.50 lb Heart Rate 80 /min BP Systolic Sitting 138 mmHg BP Diastolic Sitting 68 mmHg Body Temperature 98.3 F BMI (Body Mass Index) 36.9 kg/m2 10/22/2013 Height 69 inches 5'9" Weight 245.00 lb Heart Rate 70 /min BP Systolic Sitting 120 mmHg BP Diastolic Sitting 70 mmHg Respiratory Rate 16 /min BMI (Body Mass Index) 36.2 kg/m2 07/21/2013 Height 69 inches 5'9" Weight 245.00 lb Heart Rate 68 /min BP Systolic Sitting 146 mmHg BP Diastolic Sitting 80 mmHg Respiratory Rate 16 /min BMI (Body Mass Index) 36.2 kg/m2 07/19/2013 Heart Rate 62 /min BP Systolic Sitting 120 mmHg BP Diastolic Sitting 80 mmHg Respiratory Rate 16 /min 07/13/2013 Height 68 inches 5'8" Weight 247.00 lb Heart Rate 72 /min BP Systolic 136 mmHg BP Diastolic 74 mmHg BMI (Body Mass Index) 37.6 kg/m2 06/17/2013 Height 68 inches 5'8" Weight 243.00 lb Heart Rate 68 /min BP Systolic 126 mmHg BP Diastolic 70 mmHg BMI (Body Mass Index) 36.9 kg/m2 05/25/2013 Height 68 inches 5'8" Weight 242.25 lb Heart Rate 60 /min BP Systolic Sitting 146 mmHg BP Diastolic Sitting 82 mmHg BMI (Body Mass Index) 36.8 kg/m2 05/03/2013 Weight 241.25 lb Heart Rate 62 /min BP Systolic Sitting 128 mmHg BP Diastolic Sitting 72 mmHg 04/21/2013 Heart Rate 74 /min BP Systolic Sitting 158 mmHg BP Diastolic Sitting 72 mmHg Respiratory Rate 18 /min 03/08/2013 Height 68 inches 5'8" Weight 237.50 lb Heart Rate 62 /min BP Systolic Sitting 130 mmHg BP Diastolic Sitting 92 mmHg O2 % BldC Oximetry 98 % BMI (Body Mass Index) 36.1 kg/m2 01/13/2013 Height 68 inches 5'8" Weight 233.00 lb Heart Rate 76 /min BP Systolic Sitting 130 mmHg BP Diastolic Sitting 72 mmHg Respiratory Rate 8 /min BMI (Body Mass Index) 35.4 kg/m2 01/05/2013 Weight 237.50 lb Heart Rate 62 /min BP Systolic Sitting 178 mmHg BP Diastolic Sitting 100 mmHg 07/06/2012 Height 68.25 inches 5'8.25" Weight 241.00 lb Heart Rate 84 /min BP Systolic Sitting 162 mmHg BP Diastolic Sitting 88 mmHg BMI (Body Mass Index) 36.4 kg/m2 06/24/2012 Height 68 inches 5'8" Weight 232.00 lb Heart Rate 68 /min BP Systolic 152 mmHg BP Diastolic 85 mmHg BP Systolic Sitting 160 mmHg BP Diastolic Sitting 86 mmHg Body Temperature 97.3 F BMI (Body Mass Index) 35.3 kg/m2 03/24/2012 Height 68 inches 5'8" Weight 233.00 lb Heart Rate 70 /min BP Systolic Sitting 134 mmHg BP Diastolic Sitting 82 mmHg Respiratory Rate 16 /min Body Temperature 98.8 F BMI (Body Mass Index) 35.4 kg/m2 04/12/2011 Height 68 inches 5'8" Weight 233.00 lb Heart Rate 68 /min BP Systolic Sitting 150 mmHg BP Diastolic Sitting 100 mmHg BMI (Body Mass Index) 35.4 kg/m2 11/13/2010 Weight 243.00 lb Heart Rate 72 /min BP Systolic Sitting 136 mmHg BP Diastolic Sitting 80 mmHg 05/09/2010 Weight 241.00 lb Heart Rate 72 /min BP Systolic Sitting 130 mmHg BP Diastolic Sitting 78 mmHg 03/08/2010 Heart Rate 69 /min BP Systolic Sitting 104 mmHg BP Diastolic Sitting 70 mmHg Respiratory Rate 14 /min 02/20/2010 Weight 241.00 lb Heart Rate 63 /min BP Systolic Sitting 158 mmHg BP Diastolic Sitting 78 mmHg 07/13/2008 Height 70 inches 5'10" Weight 252.00 lb Heart Rate 74 /min BP Systolic Sitting 180 mmHg BP Diastolic Sitting 82 mmHg BMI (Body Mass Index) 36.2 kg/m2 01/28/2008 Height 70 inches 5'10" Weight 250.00 lb Heart Rate 72 /min BP Systolic Sitting 150 mmHg BP Diastolic Sitting 80 mmHg BMI (Body Mass Index) 35.9 kg/m2 07/08/2007 Height 70 inches 5'10" Weight 248.00 lb Heart Rate 72 /min BP Systolic Sitting 168 mmHg BP Diastolic Sitting 80 mmHg BMI (Body Mass Index) 35.6 kg/m2 04/29/2007 Height 70 inches 5'10" Weight 225.00 lb Heart Rate 68 /min BP Systolic Sitting 132 mmHg BP Diastolic Sitting 80 mmHg BMI (Body Mass Index) 32.3 kg/m2 Results Test Date Test Result H/L Range Note Laboratory test finding 12/17/2017 Partial Thrombo 31.9 seconds 26.0- 36.3 Time PTT Comp Metabolic Panel 12/17/2017 Sodium 143 mmol/L 135-145 Potassium 4.5 mmol/L 3.5-5.0 Chloride 109 mmol/L 101-111 Co2 Carbon Dioxide 28 mmol/L 22-32 Anion Gap 6 mmol/L 2-11 Glucose 90 mg/dL 70-100 Blood Urea Nitrogen 29 mg/dL High 6-24 Creatinine 1.87 mg/dL High 0.67-1.17 One Over Creatinine 0.53 mg/dL Low 0.67-1.17 BUN/Creatinine Ratio 15.5 8-20 Calcium 9.0 mg/dL 8.6-10.3 Total Protein 6.6 g/dL 6.4-8.9 Albumin 3.7 g/dL 3.2-5.2 Globulin 2.9 g/dL 2-4 Albumin/Globulin Ratio 1.3 1-3 Total Bilirubin 0.40 mg/dL 0.2-1.0 Alkaline Phosphatase 94 U/L 34-104 Alt 17 U/L 7-52 Ast 18 U/L 13-39 Egfr Non- 34.8 >60 Egfr 44.8 >60 1 CBC Auto Diff 12/17/2017 White Blood Count 7.6 10^3/uL 3.5-10.8 Red Blood Count 4.30 10^6/uL 4.00-5.40 Hemoglobin 13.9 g/dL Low 14.0-18.0 Hematocrit 41 % Low 42-52 Mean Corpuscular Volume 95 fL High 80-94 Mean Corpuscular Hemoglobin 32 pg High 27-31 Mean Corpuscular HGB Conc 34 g/dL 31-36 Red Cell Distribution Width 14 % 10.5-15 Platelet Count 171 10^3/uL 150-450 Mean Platelet Volume 8.8 um3 7.4-10.4 Abs Neutrophils 5.7 10^3/uL 1.5-7.7 Abs Lymphocytes 1.1 10^3/uL 1.0-4.8 Abs Monocytes 0.6 10^3/uL 0-0.8 Abs Eosinophils 0.2 10^3/uL 0-0.6 Abs Basophils 0 10^3/uL 0-0.2 Abs Nucleated RBC 0 10^3/uL Granulocyte % 75.1 % 38-83 Lymphocyte % 14.4 % Low 25-47 Monocyte % 7.6 % High 0-7 Eosinophil % 2.6 % 0-6 Basophil % 0.3 % 0-2 Nucleated Red Blood Cells % 0 Inr/Protime 12/17/2017 Inr 0.88 0.77-1.02 Laboratory test finding 12/02/2017 Surgical Pathology SEE RESULT BELOW 2 Protein Electrophoresis 11/21/2017 Total Protein(Pep) 2736 mg/24h <229 3 Urine (24HR) Urine Collection Duration 24 h Urine Volume 1600 mL Total Protein Concentration 171 mg/dL Albumin 71 % Alpha-1 Globulin 4 % Alpha-2 Globulin 4 % Beta Globulin 10 % Gamma Globulin 12 % Albumin/Globulin Ratio 2.48 Impression See Comment 4 Protein Electrophoresis 11/21/2017 Total Protein(Pep) 6.5 g/dL 6.3 - 7.9 Albumin 3.1 g/dL 3.4-4.7 Alpha-1 Globulin 0.2 g/dL 0.1-0.3 Alpha-2 Globulin 1.1 g/dL 0.6-1.0 Beta Globulin 0.9 g/dL 0.7-1.2 Gamma Globulin 1.1 g/dL 0.6-1.6 Albumin/Globulin Ratio 0.91 Impression See Comment 5 Anca Panel For Vasculitis 11/21/2017 Myeloperoxidase AB < 0.2 U 6 Proteinase 3 AB < 0.2 U 7 Creatinine Clearance 11/21/2017 Creatinine 2.01 mg/dL High 0.51-0.95 Urine Random Creatinine 86.08 mg/dL Creatinine Clearance 48 mL/min Low 97-137 Urea Nitrogen Clearance 11/21/2017 BUN Serum 40 mg/dL High 6-24 Urine Collection Time 24 hr Urine Total Volume 1600 mL Urine Random Urea Nitrogen 774 mg/dL Urea Nitrogen Clearance 21 mL/min Low 59-99 CBC Auto Diff 11/21/2017 White Blood Count 9.4 10^3/uL 3.5-10.8 Red Blood Count 4.40 10^6/uL 4.0-5.4 Hemoglobin 13.9 g/dL Low 14.0-18.0 Hematocrit 42 % 42-52 Mean Corpuscular Volume 95 fL High 80-94 Mean Corpuscular Hemoglobin 32 pg High 27-31 Mean Corpuscular HGB Conc 33 g/dL 31-36 Red Cell Distribution Width 14 % 10.5-15 Platelet Count 182 10^3/uL 150-450 Mean Platelet Volume 8.9 um3 7.4-10.4 Abs Neutrophils 7.5 10^3/uL 1.5-7.7 Abs Lymphocytes 1.2 10^3/uL 1.0-4.8 Abs Monocytes 0.6 10^3/uL 0-0.8 Abs Eosinophils 0.2 10^3/uL 0-0.6 Abs Basophils 0 10^3/uL 0-0.2 Abs Nucleated RBC 0 10^3/uL Granulocyte % 79.7 % 38-83 Lymphocyte % 12.4 % Low 25-47 Monocyte % 5.9 % 0-7 Eosinophil % 1.7 % 0-6 Basophil % 0.3 % 0-2 Nucleated Red Blood Cells % 0.1 Inr/Protime 11/21/2017 Inr 0.92 0.77-1.02 Comp Metabolic Panel 11/21/2017 Sodium 143 mmol/L 139-145 Potassium 4.7 mmol/L 3.5-5.0 Chloride 108 mmol/L 101-111 Co2 Carbon Dioxide 28 mmol/L 22-32 Anion Gap 7 mmol/L 2-11 Glucose 90 mg/dL 70-100 Blood Urea Nitrogen 40 mg/dL High 6-24 Creatinine 2.02 mg/dL High 0.67-1.17 One Over Creatinine 0.49 mg/dL Low 0.67-1.17 BUN/Creatinine Ratio 19.8 8-20 Calcium 8.7 mg/dL 8.6-10.3 Total Protein 6.6 g/dL 6.4-8.9 Albumin 3.7 g/dL 3.2-5.2 Globulin 2.9 g/dL 2-4 Albumin/Globulin Ratio 1.3 1-3 Total Bilirubin 0.70 mg/dL 0.2-1.0 Alkaline Phosphatase 77 U/L 34-104 Alt 16 U/L 7-52 Ast 16 U/L 13-39 Egfr Non- 31.9 >60 Egfr 41.0 >60 8 Total Protein 24HR Urine 11/21/2017 Urine Collection Time 24 hr Urine Total Volume 1600 mL Urine Random Total Protein 84 mg/dL Urine Total Protein/24HR 1344 mg/24Hr High 0-165 Laboratory test finding 11/21/2017 Uric Acid 6.3 mg/dL 4.4-7.6 Phosphorus 3.6 mg/dL 2.5-5.0 Magnesium 2.0 mg/dL 1.9-2.7 Lipid Profile (Trig/Chol/HDL) 11/21/2017 Triglycerides 67 mg/dL 9 Cholesterol 143 mg/dL 10 HDL Cholesterol 58.0 mg/dL 11 LDL Cholesterol 72 mg/dL 12 Liver Function Panel 11/21/2017 Direct Bilirubin 0.10 mg/dL 0.03-0.18 Indirect Bilirubin 0.6 mg/dL 0.3-1.0 Creatinine Clearance 11/14/2017 Creatinine 1.96 mg/dL High 0.51-0.95 Urine Collection Time 24 hr Urine Total Volume 1650 mL Urine Random Creatinine 83.02 mg/dL Creatinine Clearance 49 mL/min Low 97-137 Total Protein 24HR Urine 11/14/2017 Urine Collection Time 24 hr Urine Total Volume 1650 mL Urine Random Total Protein 197 mg/dL Urine Total Protein/24HR 3250 mg/24Hr High 0-165 Comp Metabolic Panel 11/14/2017 Sodium 143 mmol/L 139-145 Potassium 4.8 mmol/L 3.5-5.0 Chloride 107 mmol/L 101-111 Co2 Carbon Dioxide 29 mmol/L 22-32 Anion Gap 7 mmol/L 2-11 Glucose 94 mg/dL 70-100 Blood Urea Nitrogen 40 mg/dL High 6-24 Creatinine 1.94 mg/dL High 0.67-1.17 One Over Creatinine 0.51 mg/dL Low 0.67-1.17 BUN/Creatinine Ratio 20.6 High 8-20 Calcium 8.9 mg/dL 8.6-10.3 Total Protein 6.7 g/dL 6.4-8.9 Albumin 3.9 g/dL 3.2-5.2 Globulin 2.8 g/dL 2-4 Albumin/Globulin Ratio 1.4 1-3 Total Bilirubin 0.50 mg/dL 0.2-1.0 Alkaline Phosphatase 78 U/L 34-104 Alt 15 U/L 7-52 Ast 15 U/L 13-39 Egfr Non- 33.4 >60 Egfr 42.9 >60 13 Lipid Profile (Trig/Chol/HDL) 11/14/2017 Triglycerides 100 mg/dL 14 Cholesterol 148 mg/dL 15 HDL Cholesterol 55.4 mg/dL 16 LDL Cholesterol 73 mg/dL 17 Laboratory test finding 11/14/2017 Phosphorus 3.6 mg/dL 2.5-5.0 Magnesium 2.0 mg/dL 1.9-2.7 PSA Screening 0.919 ng/mL 0-4.000 18 Liver Function Panel 11/14/2017 Direct Bilirubin 0.10 mg/dL 0.03-0.18 Indirect Bilirubin 0.4 mg/dL 0.3-1.0 CBC Auto Diff 11/05/2017 White Blood Count 7.3 10^3/uL 3.5-10.8 Red Blood Count 4.31 10^6/uL 4.0-5.4 Hemoglobin 13.5 g/dL Low 14.0-18.0 Hematocrit 41 % Low 42-52 Mean Corpuscular Volume 95 fL High 80-94 Mean Corpuscular Hemoglobin 31 pg 27-31 Mean Corpuscular HGB Conc 33 g/dL 31-36 Red Cell Distribution Width 14 % 10.5-15 Platelet Count 179 10^3/uL 150-450 Mean Platelet Volume 9.4 um3 7.4-10.4 Abs Neutrophils 5.3 10^3/uL 1.5-7.7 Abs Lymphocytes 1.2 10^3/uL 1.0-4.8 Abs Monocytes 0.6 10^3/uL 0-0.8 Abs Eosinophils 0.2 10^3/uL 0-0.6 Abs Basophils 0 10^3/uL 0-0.2 Abs Nucleated RBC 0 10^3/uL Granulocyte % 71.6 % 38-83 Lymphocyte % 17.0 % Low 25-47 Monocyte % 8.1 % High 0-7 Eosinophil % 3.0 % 0-6 Basophil % 0.3 % 0-2 Nucleated Red Blood Cells % 0.1 Comp Metabolic Panel 11/05/2017 Sodium 144 mmol/L 139-145 Potassium 4.9 mmol/L 3.5-5.0 Chloride 107 mmol/L 101-111 Co2 Carbon Dioxide 29 mmol/L 22-32 Anion Gap 8 mmol/L 2-11 Glucose 86 mg/dL 70-100 Blood Urea Nitrogen 28 mg/dL High 6-24 Creatinine 1.83 mg/dL High 0.67-1.17 BUN/Creatinine Ratio 15.3 8-20 Calcium 9.1 mg/dL 8.6-10.3 Total Protein 6.6 g/dL 6.4-8.9 Albumin 3.8 g/dL 3.2-5.2 Globulin 2.8 g/dL 2-4 Albumin/Globulin Ratio 1.4 1-3 Total Bilirubin 0.50 mg/dL 0.2-1.0 Alkaline Phosphatase 78 U/L 34-104 Alt 14 U/L 7-52 Ast 15 U/L 13-39 Egfr Non- 35.7 >60 Egfr 45.9 >60 19 Creatinine Clearance 07/09/2017 Creatinine 1.83 mg/dL High 0.51-0.95 Urine Collection Time 24 Urine Total Volume 1250 mL Urine Random Creatinine 119.79 mg/dL Creatinine Clearance 57 mL/min Low 97-137 Microalbumin 24HR Urine 07/09/2017 Urine Collection Time 24 Urine Total Volume 1250 mL Ur Microalbumin (mg/L) 2392.7 mg/L Urine Microalbumin (mg/24Hr) 2990.9 mg/24hr High Less than 30 Urine Microalbumin (mcg/min) 2077.0 mcg/min High Less than 20 Uric Acid 24HR Urine 07/09/2017 Uric Acid, U 288 mg/24h 20 Collection Duration 24 h Urine Volume 1250 mL Uric Acid Concentration 23 mg/dL 21 Basic Metabolic Panel 07/01/2017 Sodium 141 mmol/L 133-145 Potassium 4.5 mmol/L 3.5-5.0 Chloride 104 mmol/L 101-111 Co2 Carbon Dioxide 31 mmol/L 22-32 Anion Gap 6 mmol/L 2-11 Glucose 82 mg/dL 70-100 Blood Urea Nitrogen 32 mg/dL High 6-24 Creatinine 1.94 mg/dL High 0.67-1.17 BUN/Creatinine Ratio 16.5 8-20 Calcium 8.6 mg/dL 8.6-10.3 Egfr Non- 33.5 >60 Egfr 43.0 >60 22 Laboratory test 07/01/2017 Uric Acid 6.8 mg/dL 4.4-7.6 finding Laboratory test 03/26/2017 Surgical Pathology SEE RESULT BELOW 23, 24 finding Laboratory test 03/11/2017 Surgical Pathology SEE RESULT BELOW 25 finding Basic Metabolic Panel 01/02/2017 Sodium 142 mmol/L 133-145 Potassium 4.7 mmol/L 3.5-5.0 Chloride 107 mmol/L 101-111 Co2 Carbon Dioxide 28 mmol/L 22-32 Anion Gap 7 mmol/L 2-11 Glucose 77 mg/dL 70-100 Blood Urea Nitrogen 26 mg/dL High 6-24 Creatinine 1.68 mg/dL High 0.67-1.17 BUN/Creatinine Ratio 15.5 8-20 Calcium 8.9 mg/dL 8.6-10.3 Egfr Non- 39.5 >60 Egfr 50.8 >60 26 Laboratory test finding 01/02/2017 Uric Acid 8.1 mg/dL High 4.4-7.6 PSA Screening 0.865 ng/mL 0-4.0 27 Comp Metabolic Panel 11/03/2016 Sodium 136 mmol/L 133-145 Potassium 4.3 mmol/L 3.5-5.0 Chloride 104 mmol/L 101-111 Co2 Carbon Dioxide 26 mmol/L 22-32 Anion Gap 6 mmol/L 2-11 Glucose 95 mg/dL 70-100 Blood Urea Nitrogen 25 mg/dL High 6-24 Creatinine 1.43 mg/dL High 0.67-1.17 BUN/Creatinine Ratio 17.5 8-20 Calcium 8.9 mg/dL 8.6-10.3 Total Protein 7.4 g/dL 6.4-8.9 Albumin 3.7 g/dL 3.2-5.2 Globulin 3.7 g/dL 2-4 Albumin/Globulin Ratio 1.0 1-3 Total Bilirubin 0.50 mg/dL 0.2-1.0 Alkaline Phosphatase 84 U/L 34-104 Alt 17 U/L 7-52 Ast 16 U/L 13-39 Egfr Non- 47.6 >60 Egfr 61.2 >60 28 Laboratory test finding 11/03/2016 Troponin-I (TnI) 0.01 ng/mL <0.04 29 CBC Auto Diff 11/03/2016 White Blood Count 9.2 10^3/uL 3.5-10.8 Red Blood Count 4.66 10^6/uL 4.0-5.4 Hemoglobin 14.4 g/dL 14.0-18.0 Hematocrit 44 % 42-52 Mean Corpuscular Volume 94 fL 80-94 Mean Corpuscular Hemoglobin 31 pg 27-31 Mean Corpuscular HGB Conc 33 g/dL 31-36 Red Cell Distribution Width 14 % 10.5-15 Platelet Count 138 10^3/uL Low 150-450 Mean Platelet Volume 9 um3 7.4-10.4 Abs Neutrophils 5.9 10^3/uL 1.5-7.7 Abs Lymphocytes 1.9 10^3/uL 1.0-4.8 Abs Monocytes 0.9 10^3/uL High 0-0.8 Abs Eosinophils 0.5 10^3/uL 0-0.6 Abs Basophils 0.1 10^3/uL 0-0.2 Abs Nucleated RBC 0 10^3/uL Granulocyte % 64.1 % 38-83 Lymphocyte % 20.5 % Low 25-47 Monocyte % 9.6 % High 1-9 Eosinophil % 5.2 % 0-6 Basophil % 0.6 % 0-2 Nucleated Red Blood Cells % 0.1 Inr/Protime 11/03/2016 Inr 0.93 0.89-1.11 Laboratory test finding 11/03/2016 Partial Thrombo Time 32.7 seconds 26.0 -36.3 PTT D Dimer Quantitative < 200 ng/mL Less Than 230 30 B-Type Natriuretic Peptide BNP 59 pg/mL 31 Laboratory test finding 07/16/2016 Surgical Pathology SEE RESULT BELOW 32 Basic Metabolic Panel 06/14/2016 Sodium 139 mmol/L 133-145 Potassium 4.8 mmol/L 3.5-5.0 Chloride 106 mmol/L 101-111 Co2 Carbon Dioxide 28 mmol/L 22-32 Anion Gap 5 mmol/L 2-11 Glucose 84 mg/dL 70-100 Blood Urea Nitrogen 23 mg/dL 6-24 Creatinine 1.62 mg/dL High 0.67-1.17 BUN/Creatinine Ratio 14.2 8-20 Calcium 9.3 mg/dL 8.6-10.3 Egfr Non- 41.3 >60 Egfr 53.1 >60 33 Liver Function Panel 06/14/2016 Total Protein 6.8 g/dL 6.4-8.9 Albumin 3.8 g/dL 3.2-5.2 Globulin 3.0 g/dL 2-4 Albumin/Globulin Ratio 1.3 1-3 Total Bilirubin 0.50 mg/dL 0.2-1.0 Direct Bilirubin 0.10 mg/dL 0.03-0.18 Indirect Bilirubin 0.4 mg/dL 0.3-1.0 Alkaline Phosphatase 74 U/L 34-104 Alt 16 U/L 7-52 Ast 17 U/L 13-39 Laboratory test 06/14/2016 Uric Acid 7.7 mg/dL High 4.4-7.6 finding Laboratory test 02/12/2016 Surgical Pathology SEE RESULT 34 finding BELOW Laboratory test 01/22/2016 Troponin-I (TnI) 0.01 ng/mL <0.03 35, 36 finding CBC No Diff 01/22/2016 White Blood Count 7.9 10^3/uL 3.5-10.8 35 Red Blood Count 4.61 10^6/uL 4.0-5.4 35 Hemoglobin 14.1 g/dL 14.0-18.0 35 Hematocrit 43 % 42-52 35 Mean Corpuscular Volume 93 fL 80-94 35 Mean Corpuscular Hemoglobin 31 pg 27-31 35 Mean Corpuscular HGB Conc 33 g/dL 31-36 35 Red Cell Distribution Width 14 % 10.5-15 35 Platelet Count 163 10^3/uL 150-450 35 Mean Platelet Volume 9 um3 7.4-10.4 35 Basic Metabolic Panel 01/22/2016 Sodium 140 mmol/L 133-145 35 Potassium 4.4 mmol/L 3.5-5.0 35 Chloride 105 mmol/L 101-111 35 Co2 Carbon Dioxide 29 mmol/L 22-32 35 Anion Gap 6 mmol/L 2-11 35 Glucose 116 mg/dL High 70-100 35 Blood Urea Nitrogen 24 mg/dL 6-24 35 Creatinine 1.53 mg/dL High 0.67-1.17 35 BUN/Creatinine Ratio 15.7 8-20 35 Calcium 8.9 mg/dL 8.6-10.3 35 Egfr Non- 44.1 >60 35 Egfr 56.7 >60 35, 37 Laboratory test finding 01/22/2016 Creatine Kinase(CK) 81 U/L 10-223 35 , 38 Comp Metabolic Panel 12/21/2015 Sodium 139 mmol/L 133-145 Potassium 4.9 mmol/L 3.5-5.0 Chloride 105 mmol/L 101-111 Co2 Carbon Dioxide 29 mmol/L 22-32 Anion Gap 5 mmol/L 2-11 Glucose 86 mg/dL 70-100 Blood Urea Nitrogen 27 mg/dL High 6-24 Creatinine 1.49 mg/dL High 0.67-1.17 BUN/Creatinine Ratio 18.1 8-20 Calcium 9.2 mg/dL 8.6-10.3 Total Protein 6.7 g/dL 6.4-8.9 Albumin 3.8 g/dL 3.2-5.2 Globulin 2.9 g/dL 2-4 Albumin/Globulin Ratio 1.3 1-3 Total Bilirubin 0.60 mg/dL 0.2-1.0 Alkaline Phosphatase 73 U/L 34-104 Alt 15 U/L 7-52 Ast 17 U/L 13-39 Egfr Non- 45.5 >60 Egfr 58.5 >60 39 Basic Metabolic Panel 11/28/2015 Sodium 141 mmol/L 133-145 Potassium 5.0 mmol/L 3.5-5.0 Chloride 107 mmol/L 101-111 Co2 Carbon Dioxide 29 mmol/L 22-32 Anion Gap 5 mmol/L 2-11 Glucose 109 mg/dL High 70-100 Blood Urea Nitrogen 29 mg/dL High 6-24 Creatinine 1.46 mg/dL High 0.67-1.17 BUN/Creatinine Ratio 19.9 8-20 Calcium 9.0 mg/dL 8.6-10.3 Egfr Non- 46.6 >60 Egfr 59.9 >60 40 Laboratory test finding 11/28/2015 Uric Acid 8.8 mg/dL High 4.4-7.6 PSA Screening 0.484 ng/mL 0-4.0 41 Comp Metabolic Panel 06/05/2015 Sodium 140 mmol/L 133-145 Potassium 4.7 mmol/L 3.5-5.0 Chloride 105 mmol/L 101-111 Co2 Carbon Dioxide 32 mmol/L 22-32 Anion Gap 3 mmol/L 2-11 Glucose 87 mg/dL 70-100 Blood Urea Nitrogen 21 mg/dL 6-24 Creatinine 1.51 mg/dL High 0.67-1.17 BUN/Creatinine Ratio 13.9 8-20 Calcium 9.1 mg/dL 8.6-10.3 Total Protein 6.7 g/dL 6.4-8.9 Total Bilirubin 0.50 mg/dL 0.2-1.0 Alkaline Phosphatase 83 U/L 34-104 Alt 18 U/L 7-52 Ast 16 U/L 13-39 Egfr Non- 44.9 >60 Egfr 57.8 >60 42 Albumin 4.0 g/dL 3.2-5.2 Globulin 2.7 g/dL 2-4 Albumin/Globulin Ratio 1.5 1-3 Laboratory test finding 01/04/2015 Uric Acid 8.8 mg/dL High 4.4-7.6 Comp Metabolic Panel 01/04/2015 Sodium 139 mmol/L 133-145 Potassium 4.1 mmol/L 3.5-5.0 Chloride 107 mmol/L 101-111 Co2 Carbon Dioxide 25 mmol/L 22-32 Anion Gap 7 mmol/L 2-11 Glucose 120 mg/dL High 70-100 Blood Urea Nitrogen 26 mg/dL High 6-24 Creatinine 1.40 mg/dL High 0.67-1.17 BUN/Creatinine Ratio 18.6 8-20 Calcium 9.0 mg/dL 8.6-10.3 Total Protein 6.9 g/dL 6.4-8.9 Albumin 4.0 g/dL 3.2-5.2 Globulin 2.9 g/dL 2-4 Albumin/Globulin Ratio 1.4 1-3 Total Bilirubin 0.60 mg/dL 0.2-1.0 Alkaline Phosphatase 87 U/L 34-104 Alt 31 U/L Ast 23 U/L -39 Egfr Non- 49.0 >60 Egfr 63.0 >60 43 CBC Auto Diff 01/04/2015 White Blood Count 7.3 10^3/uL 4.8-10.8 Red Blood Count 4.80 10^6/uL 4.0-5.4 Hemoglobin 15.1 g/dL 14.0-18.0 Hematocrit 47 % 42-52 Mean Corpuscular Volume 97 fL High 80-94 Mean Corpuscular Hemoglobin 31 pg 27-31 Mean Corpuscular HGB Conc 32 g/dL 31-36 Red Cell Distribution Width 14 % 10.5-15 Platelet Count 176 10^3/uL 150-450 Mean Platelet Volume 10 um3 7.4-10.4 Abs Neutrophils 5.2 10^3/uL 1.5-7.7 Abs Lymphocytes 1.3 10^3/uL 1.0-4.8 Abs Monocytes 0.6 10^3/uL 0-0.8 Abs Eosinophils 0.2 10^3/uL 0-0.6 Abs Basophils 0 10^3/uL 0-0.2 Abs Nucleated RBC 0 10^3/uL Granulocyte % 70.7 % 38-83 Lymphocyte % 18.1 % Low 25-47 Monocyte % 8.1 % 1-9 Eosinophil % 2.8 % 0-6 Basophil % 0.3 % 0-2 Nucleated Red Blood Cells % 0 Laboratory test finding 11/15/2014 TSH (Thyroid Stim Horm) 1.97 ?IU/mL 0.34-5.60 Uric Acid 8.6 mg/dL High 4.4-7.6 Vitamin B12 And Folate Serum 11/15/2014 Vitamin B12 237 pg/mL 180-914 44 Folic Acid (Folate) 16.33 ng/mL >3.99 CBC Auto Diff 11/15/2014 White Blood Count 6.3 10^3/uL 4.8-10.8 Red Blood Count 4.60 10^6/uL 4.0-5.4 Hemoglobin 14.6 g/dL 14.0-18.0 Hematocrit 45 % 42-52 Mean Corpuscular Volume 97 fL High 80-94 Mean Corpuscular Hemoglobin 32 pg High 27-31 Mean Corpuscular HGB Conc 33 g/dL 31-36 Red Cell Distribution Width 14 % 10.5-15 Platelet Count 183 10^3/uL 150-450 Mean Platelet Volume 10 um3 7.4-10.4 Abs Neutrophils 4.1 10^3/uL 1.5-7.7 Abs Lymphocytes 1.4 10^3/uL 1.0-4.8 Abs Monocytes 0.6 10^3/uL 0-0.8 Abs Eosinophils 0.3 10^3/uL 0-0.6 Abs Basophils 0 10^3/uL 0-0.2 Abs Nucleated RBC 0.01 10^3/uL Granulocyte % 64.0 % 38-83 Lymphocyte % 22.6 % Low 25-47 Monocyte % 8.7 % 1-9 Eosinophil % 4.3 % 0-6 Basophil % 0.4 % 0-2 Nucleated Red Blood Cells % 0.1 Comp Metabolic Panel 11/15/2014 Sodium 139 mmol/L 133-145 Potassium 4.2 mmol/L 3.5-5.0 Chloride 110 mmol/L 101-111 Co2 Carbon Dioxide 25 mmol/L 22-32 Anion Gap 4 mmol/L 2-11 Glucose 91 mg/dL 70-100 Blood Urea Nitrogen 23 mg/dL 6-24 Creatinine 1.38 mg/dL High 0.67-1.17 BUN/Creatinine Ratio 16.7 8-20 Calcium 8.9 mg/dL 8.6-10.3 Total Protein 6.5 g/dL 6.4-8.9 Albumin 3.9 g/dL 3.2-5.2 Globulin 2.6 g/dL 2-4 Albumin/Globulin Ratio 1.5 1-3 Total Bilirubin 0.70 mg/dL 0.2-1.0 Alkaline Phosphatase 77 U/L 34-104 Alt 26 U/L 7-52 Ast 17 U/L 13-39 Egfr Non- 49.8 >60 Egfr 64.1 >60 45 Bilrubin And Indirect 05/02/2014 Total Bilirubin 0.40 mg/dL 0.2-1.0 Direct Bilirubin 0.10 mg/dL 0.03-0.18 Indirect Bilirubin 0.3 mg/dL 0.3-1.0 Liver Function Panel 04/29/2014 Total Protein 7.1 g/dL 6.4-8.9 Albumin 3.9 g/dL 3.2-5.2 Globulin 3.2 g/dL 2-4 Albumin/Globulin Ratio 1.2 1-3 Total Bilirubin 0.40 mg/dL 0.2-1.0 Direct Bilirubin TNP mg/dL 0.03-0.18 46 Indirect Bilirubin TNP mg/dL 0.3-1.0 Alkaline Phosphatase 82 U/L 34-104 Alt 23 U/L 7-52 Ast TNP U/L 13-39 47 Basic Metabolic Panel 07/16/2013 Sodium 138 mmol/L 133-145 Potassium 4.5 mmol/L 3.5-5.0 Chloride 106 mmol/L 101-111 Co2 Carbon Dioxide 26.0 mmol/L 22-32 Anion Gap 6.0 mmol/L 2-11 Glucose 91 mg/dL 70-100 Blood Urea Nitrogen 22 mg/dL 6-24 Creatinine 1.40 mg/dL 0.50-1.40 BUN/Creatinine Ratio 15.7 8-20 Calcium 8.9 mg/dL 8.1-9.9 Egfr Non- 49.3 >60 Egfr 63.4 >60 48 Inr/Protime 07/15/2013 Inr 0.93 0.85-1.06 Basic Metabolic Panel 07/15/2013 Sodium 140 mmol/L 133-145 Potassium 5.3 mmol/L High 3.5-5.0 Chloride 108 mmol/L 101-111 Co2 Carbon Dioxide 27.0 mmol/L 22-32 Anion Gap 5.0 mmol/L 2-11 Glucose 85 mg/dL 70-100 Blood Urea Nitrogen 20 mg/dL 6-24 Creatinine 1.30 mg/dL 0.50-1.40 BUN/Creatinine Ratio 15.4 8-20 Calcium 9.1 mg/dL 8.1-9.9 Egfr Non- 53.7 >60 Egfr 69.0 >60 49 CBC Auto Diff 07/15/2013 White Blood Count 6.5 10^3/uL 4.8-10.8 Red Blood Count 4.56 10^6/uL 4.0-5.4 Hemoglobin 14.4 g/dL 14.0-18.0 Hematocrit 44 % 42-52 Mean Corpuscular Volume 96 fL High 80-94 Mean Corpuscular Hemoglobin 32 pg High 27-31 Mean Corpuscular HGB Conc 33 g/dL 31-36 Red Cell Distribution Width 15 % 10.5-15 Platelet Count 168 10^3/uL 150-450 Mean Platelet Volume 10 um3 7.4-10.4 Abs Neutrophils 4.3 10^3/uL 1.5-7.7 Abs Lymphocytes 1.4 10^3/uL 1.0-4.8 Abs Monocytes 0.6 10^3/uL 0-0.8 Abs Eosinophils 0.3 10^3/uL 0-0.6 Abs Basophils 0 10^3/uL 0-0.2 Abs Nucleated RBC 0.01 10^3/uL Granulocyte % 65.4 % 38-83 Lymphocyte % 21.8 % Low 25-47 Monocyte % 8.5 % 1-9 Eosinophil % 3.9 % 0-6 Basophil % 0.4 % 0-2 Nucleated Red Blood Cells % 0.2 Cath Panel 07/15/2013 Activated Partial 33.3 seconds 24.0-36.1 Thrombo Time Urine Culture And 01/27/2013 Urine Culture (SEE NOTE) 50 Sensitivities Basic Metabolic Panel 01/27/2013 Sodium 139 mmol/L 133-145 Potassium 4.5 mmol/L 3.5-5.0 Chloride 107 mmol/L 101-111 Co2 Carbon Dioxide 27.0 mmol/L 22-32 Anion Gap 5.0 mmol/L 2-11 Glucose 85 mg/dL 70-100 Blood Urea Nitrogen 21 mg/dL 6-24 Creatinine 1.40 mg/dL 0.50-1.40 BUN/Creatinine Ratio 15.0 8-20 Calcium 9.1 mg/dL 8.1-9.9 Egfr Non- 49.3 >60 Egfr 63.4 >60 51 Laboratory test finding 01/27/2013 Activated Partial 32.4 seconds 22.18- 37.18 52 Thrombo Time Inr/Protime 01/27/2013 Inr 0.88 0.87-0.97 CBC Auto Diff 01/27/2013 White Blood Count 6.0 10^3/uL 4.8-10.8 Red Blood Count 4.69 10^6/uL 4.0-5.4 Hemoglobin 14.8 g/dL 14.0-18.0 Hematocrit 45 % 42-52 Mean Corpuscular Volume 96 fL High 80-94 Mean Corpuscular Hemoglobin 32 pg High 27-31 Mean Corpuscular HGB Conc 33 g/dL 31-36 Red Cell Distribution Width 14 % 10.5-15 Platelet Count 189 10^3/uL 150-450 Mean Platelet Volume 9 um3 7.4-10.4 Abs Neutrophils 4.0 10^3/uL 1.5-7.7 Abs Lymphocytes 1.2 10^3/uL 1.0-4.8 Abs Monocytes 0.5 10^3/uL 0-0.8 Abs Eosinophils 0.2 10^3/uL 0-0.6 Abs Basophils 0 10^3/uL 0-0.2 Abs Nucleated RBC 0.01 10^3/uL Granulocyte % 67.5 % 38-83 Lymphocyte % 20.2 % Low 25-47 Monocyte % 7.9 % 1-9 Eosinophil % 4.1 % 0-6 Basophil % 0.3 % 0-2 Nucleated Red Blood Cells % 0.1 Laboratory test finding 12/31/2012 Magnesium 2.2 mg/dL 1.7-2.6 C Reactive Protein 0.5 mg/dL Less than 0.5 B Type Natriuretic Peptide 23.0 pg/mL 0-100 Inr/Protime 12/31/2012 Inr 0.87 0.87-0.97 Laboratory test finding 12/31/2012 Activated Partial 33.0 seconds 22.18- 37.18 Thrombo Time Comp Metabolic Panel 12/31/2012 Sodium 140 mmol/L 133-145 Potassium 4.3 mmol/L 3.5-5.0 Chloride 107 mmol/L 101-111 Co2 Carbon Dioxide 26.0 mmol/L 22-32 Anion Gap 7.0 mmol/L 2-11 Glucose 111 mg/dL High 70-100 Blood Urea Nitrogen 27 mg/dL High 6-24 Creatinine 1.30 mg/dL 0.50-1.40 BUN/Creatinine Ratio 20.8 High 8-20 Calcium 9.0 mg/dL 8.1-9.9 Total Protein 7.2 g/dL 6.2-8.1 Albumin 3.5 g/dL 3.2-5.2 Globulin 3.7 g/dL 2-4 Albumin/Globulin Ratio 0.9 Low 1-3 Total Bilirubin 0.7 mg/dL 0.4-1.5 Alkaline Phosphatase 68 U/L 30-110 Alt 25 U/L 14-54 Ast 23 U/L 12-42 Egfr Non- 53.7 >60 Egfr 69.0 >60 53 CBC Auto Diff 12/31/2012 White Blood Count 7.5 10^3/uL 4.8-10.8 Red Blood Count 4.72 10^6/uL 4.0-5.4 Hemoglobin 14.8 g/dL 14.0-18.0 Hematocrit 46 % 42-52 Mean Corpuscular Volume 97 fL High 80-94 Mean Corpuscular Hemoglobin 31 pg 27-31 Mean Corpuscular HGB Conc 33 g/dL 31-36 Red Cell Distribution Width 15 % 10.5-15 Platelet Count 178 10^3/uL 150-450 Mean Platelet Volume 10 um3 7.4-10.4 Abs Neutrophils 4.7 10^3/uL 1.5-7.7 Abs Lymphocytes 1.9 10^3/uL 1.0-4.8 Abs Monocytes 0.6 10^3/uL 0-0.8 Abs Eosinophils 0.2 10^3/uL 0-0.6 Abs Basophils 0 10^3/uL 0-0.2 Abs Nucleated RBC 0 10^3/uL Granulocyte % 62.8 % 38-83 Lymphocyte % 25.4 % 25-47 Monocyte % 8.4 % 1-9 Eosinophil % 3.2 % 0-6 Basophil % 0.2 % 0-2 Nucleated Red Blood Cells % 0 Basic Metabolic Panel 10/02/2012 Sodium 142 mmol/L 133-145 Potassium 4.3 mmol/L 3.5-5.0 Chloride 105 mmol/L 101-111 Co2 Carbon Dioxide 28.0 mmol/L 22-32 Anion Gap 9.0 mmol/L 2-11 Glucose 120 mg/dL High 70-100 Blood Urea Nitrogen 18 mg/dL 6-24 Creatinine 1.20 mg/dL 0.50-1.40 BUN/Creatinine Ratio 15.0 8-20 Calcium 8.9 mg/dL 8.1-9.9 Egfr Non- 58.9 >60 Egfr 75.7 >60 54 Liver Function Panel 10/02/2012 Total Protein 5.9 g/dL Low 6.2-8.1 Albumin 3.4 g/dL 3.2-5.2 Globulin 2.5 g/dL 2-4 Albumin/Globulin Ratio 1.4 1-3 Total Bilirubin 0.6 mg/dL 0.4-1.5 Direct Bilirubin 0.1 mg/dL 0.1-0.5 Indirect Bilirubin 0.5 mg/dL 0.3-1.0 Alkaline Phosphatase 76 U/L 30-110 Alt 22 U/L 14-54 Ast 24 U/L 12-42 Laboratory test finding 10/02/2012 Uric Acid 4.9 mg/dL 2.6-7.2 PSA Screening 0.54 ng/mL 0-4.0 55 Surgical Pathology 04/30/2012 S RUN DATE: 05/04/ <SEE 56 NOTE> Cytology Non-Lathe Winder 11/28/2010 Cytology Non Lathe Winder <SEE 57 NOTE> CBC Auto Diff 11/20/2010 White Blood Count 7.9 CUMM 4.8-10.8 Red Cell Count 4.58 CUMM Low 4.6-6.2 Hemoglobin 14.4 g/dL 14.0-18.0 Hematocrit 43 % 42-52 Mean Corpuscular Volume 94 um3 80-94 Mean Corpuscular Hemoglob 31 pg 27-31 Mean Corpuscular HGB Cone 34 g/dL 32-36 Redcell Distribution WDTH 14 % 10.5-15 Platelet Count 210 CUMM 150-450 Mean Platelet Volume 8.8 um3 7.4-10.4 Gran % 60.7 % 38-83 Lymph % 25.2 % 25-47 Mononuclear % 10.4 % High 1-9 Eosinophil % 3.3 % 0-6 Basophil % 0.4 % 0-2 Abs Lymphs 2.0 1.0-4.8 Abs Mononuclear 0.8 0-0.8 Absolute Neutrophil Count 4.8 1.5-7.7 Abs Eosinophils 0.3 0-0.6 Abs Basophils 0 0-0.2 Protime 11/20/2010 Inr 0.98 0.82-1.17 58 Protime 11.5 SEC 10.2-14.8 59 Laboratory test finding 11/20/2010 PTT (Aptt) 31.6 25.15-38.53 Laboratory test finding 11/13/2010 Uric Acid 6.5 mg/dL 2.6-7.2 C Reactive Protein 0.8 mg/dL High Less Than 0.5 Basic Metabolic Panel 11/13/2010 Sodium 138 mmol/L 135-145 Potassium 4.0 mmol/L 3.5-5.0 Chloride 103 mmol/L 101-111 Co2 (Carbon Dioxide) 26.0 mmol/L 22-32 Anion Gap 9.0 mmol/L 2-11 60 Glucose 76 mg/dL 70-100 BUN 17 mg/dL 6-24 Creatinine 1.10 mg/dL 0.50-1.40 One Over Creatinine 0.90 BUN/Creatinine Ratio 15.5 8-20 Calcium 8.8 mg/dL 8.1-9.9 eGFR Non- 65.4 > 60 eGFR 84.2 > 60 61 Laboratory test finding 05/08/2010 PSA,Diagnostic 0.38 NG/ML 0-4 62 Comp Metabolic Panel 02/28/2010 Sodium 143 mmol/L 135-145 Potassium 4.5 mmol/L 3.5-5.0 Chloride 107 mmol/L 101-111 Co2 (Carbon Dioxide) 29.0 mmol/L 22-32 Anion Gap 7.0 mmol/L 2-11 63 Glucose 88 mg/dL 70-100 64 BUN 19 mg/dL 6-24 Creatinine 1.20 mg/dL 0.50-1.40 One Over Creatinine 0.80 BUN/Creatinine Ratio 15.8 8-20 Calcium 9.2 mg/dL 8.1-9.9 65 Total Protein 6.7 GM/DL 6.2-8.1 Albumin 3.7 GM/DL 3.2-5.2 Globulin 3.0 GM/DL 2-4 Albumin/Globulin Ratio 1.2 1-3 Bilirubin Total 0.6 mg/dL 0.4-1.5 66 Alkaline Phosphatase 58 U/L 39-117 Alt (SGPT) 25 U/L 17-63 Ast (Sgot) 21 U/L 12-42 eGFR Non- 63.1 > 60 eGFR 76.3 > 60 67 Lipid Profile (Trig/Chol/HDL) 02/28/2010 Triglyceride 110 mg/dL 40-200 Cholesterol 164 mg/dL Less Than 200 68 High Density Lipoprotein 42 mg/dL 40-60 69 Cholesterol/HDL Ratio 3.90 AVERAGE 1-4.97 Low Density Lipoprotein 100 mg/dL Less Than 100 70 Laboratory test finding 05/11/2009 PSA,Diagnostic 0.34 NG/ML 0-4 71 Lipid Profile (Trig/Chol/HDL) 07/18/2008 Triglyceride 72 mg/dL 40-200 Cholesterol 149 mg/dL Less Than 200 72 High Density Lipoprotein 54 mg/dL 40-60 73 Cholesterol/HDL Ratio 2.76 AVERAGE 1-4.97 Low Density Lipoprotein 81 mg/dL Less Than 100 74 Basic Metabolic Panel 07/18/2008 Sodium 138 mmol/L 135-145 Potassium 4.2 mmol/L 3.5-5.0 Chloride 107 mmol/L 101-111 Co2 (Carbon Dioxide) 27.0 mmol/L 22-32 Anion Gap 4.0 mmol/L 2-11 75 Glucose 105 mg/dL High 70-100 76 BUN 16 mg/dL 6-24 Creatinine 1.10 mg/dL 0.50-1.40 One Over Creatinine 0.90 BUN/Creatinine Ratio 14.5 8-20 Calcium 9.1 mg/dL 8.1-9.9 77 Laboratory test 05/11/2008 PSA,Diagnostic 0.41 NG/ML 0-4 78 finding Surgical Pathology 03/14/2008 Surgical Pathology 79 <SEE NOTE> Lipid Profile 07/01/2007 Cholesterol/HDL Ratio 3.68 AVERAGE 1-4.97 80 (Trig/Chol/HDL) Cholesterol 162 mg/dL Less Than 200 80, 81 Triglyceride 141 mg/dL 40-200 80 High Density Lipoprotein 44 mg/dL 40-60 80 Low Density Lipoprotein 90 mg/dL Less Than 100 80, 82 Comp Metabolic Panel 07/01/2007 One Over Creatinine 0.90 80 Anion Gap 6.0 mmol/L 2-11 80, 83 Albumin/Globulin Ratio 1.2 1-3 80 Albumin 3.6 GM/DL 3.2-5.2 80 Alkaline Phosphatase 60 U/L 39-117 80 Alt (SGPT) 24 U/L 17-63 80 Ast (Sgot) 21 U/L 12-42 80 BUN 15 mg/dL 6-24 80 Calcium 9.0 mg/dL 8.7-10.2 80 Chloride 104 mmol/L 101-111 80 Co2 (Carbon Dioxide) 28.0 mmol/L 22-32 80 Globulin 3.1 GM/DL 2-4 80 Glucose 94 mg/dL 70-105 80 Potassium 4.8 mmol/L 3.5-5.0 80 Sodium 138 mmol/L 135-145 80 Bilirubin Total 0.4 mg/dL 0.4-1.5 80 Total Protein 6.7 GM/DL 6.2-8.1 80 BUN/Creatinine Ratio 13.6 8-20 80 Creatinine 1.1 mg/dL 0.5-1.4 80 CBC With Electronic Diff 07/01/2007 White Blood Count 5.2 CUMM 4.8-10.8 80 Abs Basophils 0 0-0.2 80 Abs Eosinophils 0.2 0-0.6 80 Absolute Neutrophil Count 3.4 1.5-7.7 80 Abs Lymphs 1.2 1.0-4.8 80 Abs Mononuclear 0.4 0-0.8 80 Basophil % 0.3 % 0-2 80 Hematocrit 45 % 42-52 80 Hemoglobin 15.2 g/dL 14.0-18.0 80 Eosinophil % 3.8 % 0-6 80 Gran % 64.8 % 38-83 80 Lymph % 24.0 % 20-45 80 Mean Corpuscular HGB Cone 34 g/dL 32-36 80 Mean Corpuscular Hemoglob 31 pg 27-31 80 Mean Corpuscular Volume 92 um3 80-94 80 Mean Platelet Volume 8.9 um3 7.4-10.4 80 Mononuclear % 7.1 % 1-9 80 Platelet Count 218 CUMM 150-450 80 Red Cell Count 4.92 CUMM 4.6-6.2 80 Redcell Distribution WDTH 14 % 10.5-15 80 1 Because ethnic data is not always readily available, this report includes an eGFR for both -Americans and non- Americans. The National Kidney Disease Education Program (NKDEP) does not endorse the use of the MDRD equation for patients that are not between the ages of 18 and 70, are , have extremes of body size, muscle mass, or nutritional status, or are non- or non-. According to the National Kidney Foundation, irrespective of diagnosis, the stage of the disease is based on the level of kidney function: Stage Description GFR(mL/min/1.73 m(2)) 1 Kidney damage with normal or decreased GFR 90 2 Kidney damage with mild decrease in GFR 60-89 3 Moderate decrease in GFR 30-59 4 Severe decrease in GFR 15-29 5 Kidney failure <15 (or dialysis) 2 SEE RESULT BELOW Name: DA GARCIA : [address]: Bhavesh Flaherty MD Acct: [id number] Unit: [id number] AGE: 82 Location: OR Re12/02/17 SEX: M Status: KENNETH ZAMARRIPA SPEC: [id number] KARLA: 12/02/17-[address]: Bhavesh Flaherty MD REQ: [id number] RECD: 12/02/17 STATUS: SHONDA WARD DR: Alex Hernandez MD Willow L Jernigan MD _ ORDERED: LEVEL 4/3, INTRAOP CON-GR FINAL DIAGNOSIS 1. Skin, right cheek, excision: -- Invasive, moderately differentiated squamous cell carcinoma. -- Deep, tip, and lateral margins of resection are clear. 2. Skin, right cheek, wider margin at 10?2:00, excision: -- Skin with actinic change and unremarkable subcutaneous tissue. -- No evidence of malignancy identified. 3. Skin, right cheek, wider margin at 4?8:00, excision: -- Skin with actinic change and unremarkable subcutaneous tissue. -- No evidence of malignancy identified. PATHOLOGY SURGICAL CONSULT Frozen section (FS)/Touch Prep (TP)/Gross Consult (GC) FS1) Skin, right cheek, excision: Margins of resection grossly clear. (DS) Dr. Flaherty notified 12/02/17 at 1647 PRE-OPERATIVE DIAGNOSIS Atypical squamous proliferation right cheek, 1) suture bustamnate the 12:00 anterior superior margin, 2) suture bustamante true 12:00 margin, 3) suture bustamante true 6:00 margin CONTINUED ON NEXT PAGE DEPARTMENT OF PATHOLOGY, [address] [place] [address] Kevon Castro M.D. Director [facility] # [id number] RUN DATE: 12/05/17 [facility] LAB LIVE PAGE 2 Patient: DA GARCIA [id number] (Continued) GROSS DESCRIPTION (Continued) GROSS DESCRIPTION 1. The specimen is received fresh labeled, Excision Atypical Squamous Proliferation Right Cheek, Suture Bustamante 12:00 Anterior Superior Margin, and consists of a 2.0 x 2.0 cm monroy-pink hairbearing ovoid portion of skin excised to a depth of 0.7 cm with a central 1.0 x 0.6 cm monroy-pink ulcer with rolled borders. There is an attached suture which designates the 12:00 anterior superior margin. The specimen is inked as follows: 9:00 half black , 3:00 half blue and 12:00 end green, serially sectioned from 12:00 to 6:00 and entirely submitted in cassettes A through C to include ends in cassette A. 2. The specimen is received in formalin labeled, Wider Margin 10:00-2:00 Right Cheek, Suture Bustamante True 12:00 Margin, and consists of a 2.0 x 1.4 cm monroy hairbearing triangular skin fragment excised to a depth of 0.7 cm. There is a suture attached to one long axis which designates the true 12:00 margin. The specimen is inked as follows: 10 :00 half-black and 2:00 half blue, serially sectioned from 12:00 to 6:00 and entirely submitted in cassettes A through C to include 12:00 tip in cassette A. 3. The specimen is received in formalin labeled, Wider Margin 4:00-8:00 Right Cheek, Suture Bustamante True 6:00 Margin, and consists of a 2.8 x 1.6 cm monroy-white wrinkled hairbearing triangular skin fragment excised to a depth of 0.5 cm with an eccentric 0.8 by up to 0.3 x 0.1 cm blue scaly lesion. There is a suture attached to one long axis which designates the true 6:00 margin. The specimen is inked as follows: 8:00 half-black and 4: 00 half-blue, serially sectioned from 6:00 to 12:00 and entirely submitted in cassettes A through C to include 6:00 tip in cassette A. Signed by and Reported on: Kevon Castro MD 02/14 1022 END OF REPORT DEPARTMENT OF PATHOLOGY, [address] [place] [address] Kevon Castro M.D. Director [facility] # [id number] 3 ADDITIONAL INFORMATION On 12/24/2016 the total protein assay method changed resulting in approximately a 15% increase in protein values. 4 All fractions present, no apparent M-spike. Due to the elevated protein, suggest monoclonal protein study ([facility]) if clinically indicated. Test Performed by: [place] [address] 5 RESULT: No apparent monoclonal protein on serum electrophoresis. Test Performed by: [address] [id number] 6 REFERENCE VALUE <0.4 (Negative) 7 REFERENCE VALUE <0.4 (Negative) Test Performed by: [place] [id number] 8 Because ethnic data is not always readily available, this report includes an eGFR for both -Americans and non- Americans. The National Kidney Disease Education Program (NKDEP) does not endorse the use of the MDRD equation for patients that are not between the ages of 18 and 70, are , have extremes of body size, muscle mass, or nutritional status, or are non- or non-. According to the National Kidney Foundation, irrespective of diagnosis, the stage of the disease is based on the level of kidney function: Stage Description GFR(mL/min/1.73 m(2)) 1 Kidney damage with normal or decreased GFR 90 2 Kidney damage with mild decrease in GFR 60-89 3 Moderate decrease in GFR 30-59 4 Severe decrease in GFR 15-29 5 Kidney failure <15 (or dialysis) 9 Desirable: <150 Borderline High: 150-199 High: 200-499 Very High: >500 10 Desirable: <200 Borderline High: 200-239 High: >239 11 Low: <40 Desirable: 40-60 High: >60 12 Desirable: <100 Near Optimal: 100-129 Borderline High: 130-159 High: 160-189 Very High: >189 13 Because ethnic data is not always readily available, this report includes an eGFR for both -Americans and non- Americans. The National Kidney Disease Education Program (NKDEP) does not endorse the use of the MDRD equation for patients that are not between the ages of 18 and 70, are , have extremes of body size, muscle mass, or nutritional status, or are non- or non-. According to the National Kidney Foundation, irrespective of diagnosis, the stage of the disease is based on the level of kidney function: Stage Description GFR(mL/min/1.73 m(2)) 1 Kidney damage with normal or decreased GFR 90 2 Kidney damage with mild decrease in GFR 60-89 3 Moderate decrease in GFR 30-59 4 Severe decrease in GFR 15-29 5 Kidney failure <15 (or dialysis) 14 Desirable: <150 Borderline High: 150-199 High: 200-499 Very High: >500 15 Desirable: <200 Borderline High: 200-239 High: >239 16 Low: <40 Desirable: 40-60 High: >60 17 Desirable: <100 Near Optimal: 100-129 Borderline High: 130-159 High: 160-189 Very High: >189 18 Serum levels of PSA measured using the [employer] DXI Hybritech immunoassay should not be interpreted as absolute evidence of the presence or absence of disease. The PSA value should be used in conjunction with other pertinent clinical diagnostic procedures. The values obtained with different assay methods or kits cannot be used interchangeably. 19 Because ethnic data is not always readily available, this report includes an eGFR for both -Americans and non- Americans. The National Kidney Disease Education Program (NKDEP) does not endorse the use of the MDRD equation for patients that are not between the ages of 18 and 70, are , have extremes of body size, muscle mass, or nutritional status, or are non- or non-. According to the National Kidney Foundation, irrespective of diagnosis, the stage of the disease is based on the level of kidney function: Stage Description GFR(mL/min/1.73 m(2)) 1 Kidney damage with normal or decreased GFR 90 2 Kidney damage with mild decrease in GFR 60-89 3 Moderate decrease in GFR 30-59 4 Severe decrease in GFR 15-29 5 Kidney failure <15 (or dialysis) 20 REFERENCE VALUE <750 (Diet-Dependent) ADDITIONAL INFORMATION This test has been modified from the paper feeder's instructions. Its performance characteristics were determined by [facility] in a manner consistent with CLIA requirements. This test has not been cleared or approved by the U.S. Food and Drug Administration. The reference value is for a 24-hour collection. Specimens collected for other than a 24-hour time period are reported in unit of mg/dL for which reference values are not established. 21 Test Performed by: [address] [id number] 22 Because ethnic data is not always readily available, this report includes an eGFR for both -Americans and non- Americans. The National Kidney Disease Education Program (NKDEP) does not endorse the use of the MDRD equation for patients that are not between the ages of 18 and 70, are , have extremes of body size, muscle mass, or nutritional status, or are non- or non-. According to the National Kidney Foundation, irrespective of diagnosis, the stage of the disease is based on the level of kidney function: Stage Description GFR(mL/min/1.73 m(2)) 1 Kidney damage with normal or decreased GFR 90 2 Kidney damage with mild decrease in GFR 60-89 3 Moderate decrease in GFR 30-59 4 Severe decrease in GFR 15-29 5 Kidney failure <15 (or dialysis) 23 [id number] 24 SEE RESULT BELOW Name: DA GARCIA Melia : [address]: Bahvesh Flaherty MD Acct: [id number] Unit: [id number] AGE: 81 Location: [facility] Re03/26/17 SEX: M Status: REG REF SPEC: [id number] KARLA: 03/26/17-[address] [facility] [address]: Bhavesh Flaherty MD REQ: [id number] RECD: 03/26/17-0466 STATUS: SHONDA WARD DR: Alex Jernigan MD _ ORDERED: LEVEL 4/2 COMMENTS: [id number] FINAL DIAGNOSIS 1. 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 -- All margins are clear. 2. Skin, left proximal volar forearm, more medial, excision: -- Scar, excised. -- No evidence of residual squamous cell carcinoma in situ. COMMENT: The previous lesions at these sites ([id number] #1 and #2) have been completely excised. PRE-OPERATIVE DIAGNOSIS Squamous cell carcinoma in situ; 1) suture bustamante 12 o'clock proximal apex margin; 2) suture bustamante 12 o'clock proximal apex margin GROSS DESCRIPTION 1. The specimen is received in formalin labeled, Excision Squamous Cell Carcinoma In Situ Left Proximal Volar Forearm, More Lateral, Suture Bustamante 12:00 Proximal [place] Margin, and consists of a 2.6 by up to 1.0 cm white-pink skin ellipse excised to a maximum depth of 0.2 cm. There is a suture attached to one long axis designating the 12:00 proximal apex margin. The specimen is inked as follows: 3:00 half blue, 9:00 half black, 12:00 tip green, serially sectioned from 12:00 to 6:00 and entirely submitted in cassettes A through D, to include tips in cassette A. 2. The specimen is received in formalin labeled, Excision Squamous Cell Carcinoma In Situ Left Proximal Volar Forearm, More Medial, Suture Bustamante 12:00 Proximal [place] Margin, and CONTINUED ON NEXT PAGE * ML=Testing performed at Main Lab DEPARTMENT OF PATHOLOGY, [address] [place] [address] Kevon Castro M.D. Director [facility] # [id number] RUN DATE: 03/27/17 [facility] LAB LIVE PAGE 2 Patient: DA GARCIA [id number] (Continued) GROSS DESCRIPTION (Continued) GROSS DESCRIPTION (Continued) consists of a 0.3 x 0.9 cm white-dominguez skin ellipse excised to a maximum depth of 0.3 cm. There is a suture attached to one long axis designating the 12:00 proximal apex margin. The specimen is inked as follows: 3:00 half blue, 9:00 half black, 12:00 tip green; serially sectioned from 12:00 to 6:00 and entirely submitted in cassettes A through D , to include tips in cassette A. Signed (signature on file) Susu Bauman MD 1256 END OF REPORT * ML=Testing performed at Main Lab DEPARTMENT OF PATHOLOGY, [address] [place] [address] Kevon Castro M.D. Director [facility] # [id number] 25 SEE RESULT BELOW Name: DA GARCIA : [address]: Bhavesh Flaherty MD Acct: [id number] Unit: [id number] AGE: 81 Location: OR Re03/11/17 SEX: M Status: DEP SDC SPEC: [id number] KARLA: 03/11/17- SUBM DR: Bhavesh Flaherty MD REQ: [id number] RECD: 03/11/17 STATUS: SHONDA WARD DR: Alex Jernigan MD _ ORDERED: FS 1ST PER SPEC, FS ADD PER SPEC, LEVEL 4 FINAL DIAGNOSIS Skin, right ear, excision: -- Scar and residual hypertrophic actinic keratosis. -- All margins are clear. COMMENT: The previous lesion at this site ([id number] #4) has been completely excised. PATHOLOGY SURGICAL CONSULT Frozen section (FS)/Touch Prep (TP)/Gross Consult (GC) FS) Skin, right ear helix, excision: a. Residual hypertrophic actinic keratosis. (EP) b. No severe dysplasia. (EP) Findings discussed with Dr. Flaherty 03/11/17 0850 PRE-OPERATIVE DIAGNOSIS Squamous cell carcinoma, suture bustamante superior helix margin. GROSS DESCRIPTION The specimen is received fresh labeled, Excision Squamous Cell Carcinoma In Situ [place] Right Ear, and consists of a 2.0 x 1.4 cm monroy-pink triangular skin fragment excised to a depth of 0.6 cm. There is an attached suture which as per the accompanying requisition designates the superior helix margin. The specimen is inked as follows: superior helix- green and remaining specimen-blue, serially sectioned from superior to inferior and entirely submitted for frozen section microscopy. The frozen section residue is submitted in cassettes FSA and CONTINUED ON NEXT PAGE * ML=Testing performed at Main Lab DEPARTMENT OF PATHOLOGY, [address] [place] [address] Kevon Castro M.D. Director [facility] # [id number] RUN DATE: 03/13/17 [facility] LAB LIVE PAGE 2 Patient: DA GARCIA [id number] (Continued) GROSS DESCRIPTION (Continued) GROSS DESCRIPTION (Continued) FSB to include ends in cassette FSA. Signed (signature on file) Susu Bauman MD 0915 END OF REPORT * ML=Testing performed at Main Lab DEPARTMENT OF PATHOLOGY, [address] [place] [address] Kevon Castro M.D. Director [facility] # [id number] 26 Because ethnic data is not always readily available, this report includes an eGFR for both -Americans and non- Americans. The National Kidney Disease Education Program (NKDEP) does not endorse the use of the MDRD equation for patients that are not between the ages of 18 and 70, are , have extremes of body size, muscle mass, or nutritional status, or are non- or non-. According to the National Kidney Foundation, irrespective of diagnosis, the stage of the disease is based on the level of kidney function: Stage Description GFR(mL/min/1.73 m(2)) 1 Kidney damage with normal or decreased GFR 90 2 Kidney damage with mild decrease in GFR 60-89 3 Moderate decrease in GFR 30-59 4 Severe decrease in GFR 15-29 5 Kidney failure <15 (or dialysis) 27 Serum levels of PSA measured using the [employer] DXI Hybritech immunoassay should not be interpreted as absolute evidence of the presence or absence of disease. The PSA value should be used in conjunction with other pertinent clinical diagnostic procedures. The values obtained with different assay methods or kits cannot be used interchangeably. 28 Because ethnic data is not always readily available, this report includes an eGFR for both -Americans and non- Americans. The National Kidney Disease Education Program (NKDEP) does not endorse the use of the MDRD equation for patients that are not between the ages of 18 and 70, are , have extremes of body size, muscle mass, or nutritional status, or are non- or non-. According to the National Kidney Foundation, irrespective of diagnosis, the stage of the disease is based on the level of kidney function: Stage Description GFR(mL/min/1.73 m(2)) 1 Kidney damage with normal or decreased GFR 90 2 Kidney damage with mild decrease in GFR 60-89 3 Moderate decrease in GFR 30-59 4 Severe decrease in GFR 15-29 5 Kidney failure <15 (or dialysis) 29 99th percentile=0.04 ng/mL Troponin results at [facility] and [facility] are not interchangeable. 30 Please note: The following may produce a false positive D Dimer test: - Rheumatoid factor greater than 60 IU/ml - Plasma hemoglobin greater than 0.05 gm/dl - Bilirubin greater than 50 mg/dl - Lipids greater than 1000 mg/dl - FDP greater than 20 ug/ml 31 >100 to <200 pg/mL: likely compensated congestive heart failure (CHF) 200 to 400 pg/mL: likely moderate CHF >400 pg/mL: likely moderate to severe CHF 32 SEE RESULT BELOW Name: AD GARCIA : [address]: Bhavesh Flaherty MD Acct: [id number] Unit: [id number] AGE: 81 Location: OR Re07/16/16 SEX: M Status: REG SDC SPEC: [id number] KARLA: 07/16/[address] [facility] [address]: Bhavesh Flaherty MD REQ: [id number] RECD: 07/16/16 STATUS: SHONDA WARD DR: Alex Jernigan MD _ ORDERED: CONSULT W/ FS, FS ADDITIONAL/2, LEVEL IV/3 FINAL DIAGNOSIS 1. 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 -- Deep, tip, and lateral margins are clear. 2. Skin, right cheek, excision: -- Scar and residual actinic keratosis. -- Deep, tip, and lateral margins are clear. 3. Skin, left forehead, 10-2:00 margin, wider excision: -- Skin and subcutaneous tissue with actinic change and no evidence of neoplasia. COMMENT: The previous lesions at these sites ([id number] #4 and #1) have been completely excised. PATHOLOGY SURGICAL CONSULT Frozen section (FS)/Touch Prep (TP)/Gross Consult (GC) FS1) Skin, left forehead, excision: Margins clear. (DS) Dr Flaheryt notified 07/16/16 at 1526. 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 Director [facility] # [id number] RUN DATE: 07/18/16 [facility] LAB LIVE PAGE 2 Patient: DA GARCIA [id number] (Continued) GROSS DESCRIPTION (Continued) GROSS DESCRIPTION 1. The specimen is received fresh labeled, Excision Squamous Cell Carcinoma In Situ Left Forehead, Suture Bustamante 12:00 Superior Margin, and consists of a 1.8 x 1.3 cm monroy-pink ovoid portion of skin excised to a depth of 0.6 cm. The specimen is inked as follows: 9:00 half black, 3:00 half blue and 12:00 end green, serially sectioned from 12:00 to 6 :00 and entirely submitted for frozen section microscopy. The frozen section residue is submitted in cassettes FSA through FSC to include ends in cassette FSA. 2. The specimen is received in formalin labeled, Excision Squamous Cell Lesion Right Cheek, Suture Bustamante 12:00 Superior [place] Margin, and consists of a 4.5 x 2.1 cm monroy-dominguez skin ellipse excised to a depth of 0.6 cm with a central 0.6 x 0.4 cm dominguez crusted area. There is a suture attached to one long axis, which designates the 12:00 superior apex margin. The specimen is inked as follows: 9:00 half black, 3:00 half blue and 12:00 tip green, serially sectioned from 12:00 6:00 and entirely submitted in cassettes A through F to include ellipse ends in cassette A. 3. The specimen is received in formalin labeled, Wider 10:00 to 2:00 Margin Left Forehead, Suture Bustamante True 12:00, and consists of a 2.2 x 1.1 cm monroy-dominguez triangular skin fragment excised to a maximum depth of 0.5 cm. There is a suture attached to one long axis, which designates the true 12:00 margin. The specimen is inked as follows: 9:00 half black and 3:00 half blue, serially sectioned from 12:00 to 6:00 and entirely submitted in cassettes A through C to include true 12:00 margin in cassette A. Signed (signature on file) Susu Bauman MD 1403 END OF REPORT * ML=Testing performed at Main Lab DEPARTMENT OF PATHOLOGY, [address] [place] [address] Kevon Castro M.D. Director [facility] # [id number] 33 Because ethnic data is not always readily available, this report includes an eGFR for both -Americans and non- Americans. The National Kidney Disease Education Program (NKDEP) does not endorse the use of the MDRD equation for patients that are not between the ages of 18 and 70, are , have extremes of body size, muscle mass, or nutritional status, or are non- or non-. According to the National Kidney Foundation, irrespective of diagnosis, the stage of the disease is based on the level of kidney function: Stage Description GFR(mL/min/1.73 m(2)) 1 Kidney damage with normal or decreased GFR 90 2 Kidney damage with mild decrease in GFR 60-89 3 Moderate decrease in GFR 30-59 4 Severe decrease in GFR 15-29 5 Kidney failure <15 (or dialysis) 34 SEE RESULT BELOW Name: DA GARCIA : [address]: Bhavesh Flaherty MD Acct: [id number] Unit: [id number] AGE: 80 Location: [place] Re02/12/16 SEX: M Status: REG [facility] SPEC: [id number] KARLA: 02/12/16-[address] [facility] [address]: Bhavesh Flaherty MD REQ: [id number] RECD: 02/12/16184 STATUS: SHONDA WARD DR: Alex Jernigan MD _ ORDERED: CONSULT W/ FS, LEVEL IV FINAL DIAGNOSIS Skin, left anterior leg, excision: -- 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 -- Deep, tip, and lateral margins are clear. COMMENT: The previous lesion at this site ([id number]) has been completely excised. PATHOLOGY SURGICAL CONSULT Frozen section (FS)/Touch Prep (TP)/Gross Consult (GC) FS) Skin, left anterior leg, excision: a. Superficial squamous cell carcinoma. (DS) b. Margins clear. (DS) Dr. Flaherty notified at 1620 on 02/12/16. PRE-OPERATIVE DIAGNOSIS Squamous cell carcinoma left leg; suture bustamante 12 o'clock proximal margin GROSS DESCRIPTION The specimen is received fresh labeled, Excision Squamous Cell Carcinoma Left Anterior Leg, Suture Bustamante 12:00 Proximal Margin, and consists of a 4.0 x 3.5 cm monroy-white wrinkled ovoid skin fragment excised to a depth of 0.5 cm with a central 1.8 x 1.8 cm focally crusted monroy-pink plaque. The specimen is inked as follows: 9:00 half black, 3:00 half blue and 12:00 end green, serially sectioned from 12:00 to 6:00 and sales representative raw fibers sections are CONTINUED ON NEXT PAGE * ML=Testing performed at Main Lab DEPARTMENT OF PATHOLOGY, [address] [place] [address] Kevon Castro M.D. Director [facility] # [id number] RUN DATE: 02/13/16 [facility] LAB LIVE PAGE 2 Patient: DA GARCIA [id number] (Continued) GROSS DESCRIPTION (Continued) GROSS DESCRIPTION (Continued) submitted for frozen section microscopy. The frozen section residue and the remaining specimen are submitted in cassettes FSA through G as follows: FSA-frozen section residue, B-ends, C through E-sections proximal to FSA, F-3:00 and 9:00 tips associated with FSA and G-sections distal to FSA. Signed (signature on file) Susu Bauman MD 1149 END OF REPORT * ML=Testing performed at Main Lab DEPARTMENT OF PATHOLOGY, [address] [place] [address] Kevon Castro M.D. Director [facility] # [id number] [phone] MILIAN AT [phone] Reference Range and Interpretation: TnI (ng/mL) Interpretation Less Than 0.03 ng/mL Not supportive of diagnosis of SD 0.03 - 0.50 ng/mL Indeterminate: suggest serial studies if clinically indicated. Greater than 0.5 ng/mL Consistent with diagnosis of SD 37 Because ethnic data is not always readily available, this report includes an eGFR for both -Americans and non- Americans. The National Kidney Disease Education Program (NKDEP) does not endorse the use of the MDRD equation for patients that are not between the ages of 18 and 70, are , have extremes of body size, muscle mass, or nutritional status, or are non- or non-. According to the National Kidney Foundation, irrespective of diagnosis, the stage of the disease is based on the level of kidney function: Stage Description GFR(mL/min/1.73 m(2)) 1 Kidney damage with normal or decreased GFR 90 2 Kidney damage with mild decrease in GFR 60-89 3 Moderate decrease in GFR 30-59 4 Severe decrease in GFR 15-29 5 Kidney failure <15 (or dialysis) [address] MILIAN AT [phone] 39 Because ethnic data is not always readily available, this report includes an eGFR for both -Americans and non- Americans. The National Kidney Disease Education Program (NKDEP) does not endorse the use of the MDRD equation for patients that are not between the ages of 18 and 70, are , have extremes of body size, muscle mass, or nutritional status, or are non- or non-. According to the National Kidney Foundation, irrespective of diagnosis, the stage of the disease is based on the level of kidney function: Stage Description GFR(mL/min/1.73 m(2)) 1 Kidney damage with normal or decreased GFR 90 2 Kidney damage with mild decrease in GFR 60-89 3 Moderate decrease in GFR 30-59 4 Severe decrease in GFR 15-29 5 Kidney failure <15 (or dialysis) 40 Because ethnic data is not always readily available, this report includes an eGFR for both -Americans and non- Americans. The National Kidney Disease Education Program (NKDEP) does not endorse the use of the MDRD equation for patients that are not between the ages of 18 and 70, are , have extremes of body size, muscle mass, or nutritional status, or are non- or non-. According to the National Kidney Foundation, irrespective of diagnosis, the stage of the disease is based on the level of kidney function: Stage Description GFR(mL/min/1.73 m(2)) 1 Kidney damage with normal or decreased GFR 90 2 Kidney damage with mild decrease in GFR 60-89 3 Moderate decrease in GFR 30-59 4 Severe decrease in GFR 15-29 5 Kidney failure <15 (or dialysis) 41 Serum levels of PSA measured using the [employer] DXI Hybritech immunoassay should not be interpreted as absolute evidence of the presence or absence of disease. The PSA value should be used in conjunction with other pertinent clinical diagnostic procedures. A PSA value in the range of 0.1 to 0.6 ng/ml is indeterminate if being used as an indicator of recurrent or residual disease. The values obtained with different assay methods or kits cannot be used interchangeably. 42 Because ethnic data is not always readily available, this report includes an eGFR for both -Americans and non- Americans. The National Kidney Disease Education Program (NKDEP) does not endorse the use of the MDRD equation for patients that are not between the ages of 18 and 70, are , have extremes of body size, muscle mass, or nutritional status, or are non- or non-. According to the National Kidney Foundation, irrespective of diagnosis, the stage of the disease is based on the level of kidney function: Stage Description GFR(mL/min/1.73 m(2)) 1 Kidney damage with normal or decreased GFR 90 2 Kidney damage with mild decrease in GFR 60-89 3 Moderate decrease in GFR 30-59 4 Severe decrease in GFR 15-29 5 Kidney failure <15 (or dialysis) 43 Because ethnic data is not always readily available, this report includes an eGFR for both -Americans and non- Americans. The National Kidney Disease Education Program (NKDEP) does not endorse the use of the MDRD equation for patients that are not between the ages of 18 and 70, are , have extremes of body size, muscle mass, or nutritional status, or are non- or non-. According to the National Kidney Foundation, irrespective of diagnosis, the stage of the disease is based on the level of kidney function: Stage Description GFR(mL/min/1.73 m(2)) 1 Kidney damage with normal or decreased GFR 90 2 Kidney damage with mild decrease in GFR 60-89 3 Moderate decrease in GFR 30-59 4 Severe decrease in GFR 15-29 5 Kidney failure <15 (or dialysis) 44 Normal Range 180 to 914 Indeterminate Range 145 to 180 Deficient Range <145 45 Because ethnic data is not always readily available, this report includes an eGFR for both -Americans and non- Americans. The National Kidney Disease Education Program (NKDEP) does not endorse the use of the MDRD equation for patients that are not between the ages of 18 and 70, are , have extremes of body size, muscle mass, or nutritional status, or are non- or non-. According to the National Kidney Foundation, irrespective of diagnosis, the stage of the disease is based on the level of kidney function: Stage Description GFR(mL/min/1.73 m(2)) 1 Kidney damage with normal or decreased GFR 90 2 Kidney damage with mild decrease in GFR 60-89 3 Moderate decrease in GFR 30-59 4 Severe decrease in GFR 15-29 5 Kidney failure <15 (or dialysis) 46 Unable to report test result due to hemolysis. 47 Unable to report test result due to hemolysis. 48 Because ethnic data is not always readily available, this report includes an eGFR for both -Americans and non- Americans. The National Kidney Disease Education Program (NKDEP) does not endorse the use of the MDRD equation for patients that are not between the ages of 18 and 70, are , have extremes of body size, muscle mass, or nutritional status, or are non- or non-. According to the National Kidney Foundation, irrespective of diagnosis, the stage of the disease is based on the level of kidney function: Stage Description GFR(mL/min/1.73 m(2)) 1 Kidney damage with normal or decreased GFR 90 2 Kidney damage with mild decrease in GFR 60-89 3 Moderate decrease in GFR 30-59 4 Severe decrease in GFR 15-29 5 Kidney failure <15 (or dialysis) 49 Because ethnic data is not always readily available, this report includes an eGFR for both -Americans and non- Americans. The National Kidney Disease Education Program (NKDEP) does not endorse the use of the MDRD equation for patients that are not between the ages of 18 and 70, are , have extremes of body size, muscle mass, or nutritional status, or are non- or non-. According to the National Kidney Foundation, irrespective of diagnosis, the stage of the disease is based on the level of kidney function: Stage Description GFR(mL/min/1.73 m(2)) 1 Kidney damage with normal or decreased GFR 90 2 Kidney damage with mild decrease in GFR 60-89 3 Moderate decrease in GFR 30-59 4 Severe decrease in GFR 15-29 5 Kidney failure <15 (or dialysis) 50 RUN DATE: 01/29/13 [facility] LAB LIVE PAGE 1 RUN TIME: [address] [place] [address] Specimen Inquiry Name: DA GARCIA Melia : [address]: Eddie Knight MD Acct: [id number] Unit: [id number] AGE: 77 Location: [facility] Re01/27/13 SEX: M Status: REG REF SPEC: [id number] KARLA: 01/27/13-[address] [facility] [address]: Eddie Knight MD REQ: [id number] RECD: 01/27/13-1007 STATUS: JENA WARD DR: Arnie Lobo MD _ SOURCE: URINE SPDESC: ORDERED: Urine Culture COMMENTS: VINI 02/05/13 QUERIES: Urine Source: Clean Catch Procedure Result Verified Site Urine Culture Final 01/29/13- 1051 ML No Growth Day 2 (<1,000 CFU/mL) END OF REPORT * ML=Testing performed at Main Lab DEPARTMENT OF PATHOLOGY, [address] [place] [address] Kevon Castro M.D. Director [facility] Permit #[id number] 51 Because ethnic data is not always readily available, this report includes an eGFR for both -Americans and non- Americans. The National Kidney Disease Education Program (NKDEP) does not endorse the use of the MDRD equation for patients that are not between the ages of 18 and 70, are , have extremes of body size, muscle mass, or nutritional status, or are non- or non-. According to the National Kidney Foundation, irrespective of diagnosis, the stage of the disease is based on the level of kidney function: Stage Description GFR(mL/min/1.73 m(2)) 1 Kidney damage with normal or decreased GFR 90 2 Kidney damage with mild decrease in GFR 60-89 3 Moderate decrease in GFR 30-59 4 Severe decrease in GFR 15-29 5 Kidney failure <15 (or dialysis) 52 SDS 02/05/13 53 Because ethnic data is not always readily available, this report includes an eGFR for both -Americans and non- Americans. The National Kidney Disease Education Program (NKDEP) does not endorse the use of the MDRD equation for patients that are not between the ages of 18 and 70, are , have extremes of body size, muscle mass, or nutritional status, or are non- or non-. According to the National Kidney Foundation, irrespective of diagnosis, the stage of the disease is based on the level of kidney function: Stage Description GFR(mL/min/1.73 m(2)) 1 Kidney damage with normal or decreased GFR 90 2 Kidney damage with mild decrease in GFR 60-89 3 Moderate decrease in GFR 30-59 4 Severe decrease in GFR 15-29 5 Kidney failure <15 (or dialysis) 54 Because ethnic data is not always readily available, this report includes an eGFR for both -Americans and non- Americans. The National Kidney Disease Education Program (NKDEP) does not endorse the use of the MDRD equation for patients that are not between the ages of 18 and 70, are , have extremes of body size, muscle mass, or nutritional status, or are non- or non-. According to the National Kidney Foundation, irrespective of diagnosis, the stage of the disease is based on the level of kidney function: Stage Description GFR(mL/min/1.73 m(2)) 1 Kidney damage with normal or decreased GFR 90 2 Kidney damage with mild decrease in GFR 60-89 3 Moderate decrease in GFR 30-59 4 Severe decrease in GFR 15-29 5 Kidney failure <15 (or dialysis) 55 Serum levels of PSA measured using the [employer] DXI Hybritech immunoassay should not be interpreted as absolute evidence of the presence or absence of disease. The PSA value should be used in conjunction with other pertinent clinical diagnostic procedures. A PSA value in the range of 0.1 to 0.6 ng/ml is indeterminate if being used as an indicator of recurrent or residual disease. The values obtained with different assay methods or kits cannot be used interchangeably. 56 RUN DATE: 05/04/12 [facility] LAB LIVE PAGE 1 RUN TIME: [address] [place] [address] Specimen Inquiry Name: DA GARCIA : [address]: Molina Johns MD Acct: [id number] Unit: [id number] AGE: 76 Location: ENDO Re04/30/12 SEX: M Status: REG REF SPEC: [id number] KARLA: 04/30/12- SUBM DR: Molina Johns MD REQ: [id number] RECD: 05/01/12 STATUS: SHONDA WARD DR: Yamil STALLINGS,Alex D. ENTERED: 05/01/12 SP TYPE: SURGICAL P Eugene STALLINGS,[facility] _ ORDERED: LEVEL IV/3 FINAL DIAGNOSIS 1. Colon, cecum, biopsy: Large intestinal mucosa with hyperplastic change and prominent lymphoid aggregates. 2. Colon, 50 cm., biopsy: Hyperplastic polyp. 3. Colon, 25 cm., biopsy: Hyperplastic polyp. 1. Colon, biopsy - BIOPSY CECAL POLYP, 2. Colon, biopsy - BIOPSY COLON POLYP AT 50 CM., 3. Colon, biopsy - BIOPSY COLON POLYP AT 25 CM. CLINICAL HISTORY History of polyps POST-OPERATIVE DIAGNOSIS To terminal ileum - 3 polyps biopsied; tics, poor prep GROSS DESCRIPTION 1. The specimen is received in formalin labelled Da Garcia, Biopsy Cecal Polyp, and consists of multiple monroy, soft tissue fragments measuring 0.6 x 0.3 x 0.1 cm. Submitted entirely, one cassette. 2. The specimen is received in formalin labelled Da MeliaWillow Carran, Biopsy Colon Polyp at 50 cm., and consists of a monroy, soft tissue fragment measuring 0.6 x 0.2 x 0.1 cm. Submitted entirely, one cassette. 3. The specimen is received in formalin labelled Da Melia. Radha, Biopsy Colon Polyp at CONTINUED ON NEXT PAGE * ML=Testing performed at Main Lab DEPARTMENT OF PATHOLOGY, [facility] [employer] [place], [place] [address] Kevon Castro M.D. Director [facility] Permit #[id number] RUN DATE: 05/04/12 [facility] LAB LIVE PAGE 2 RUN TIME: 1223 [facility] [employer] [place], [place] [address] Specimen Inquiry Patient: DA GARCIA [id number] (Continued) GROSS DESCRIPTION (Continued) GROSS DESCRIPTION (Continued) 25 cm., and consists of a monroy, soft tissue fragment measuring 0.2 x 0.2 x 0.2 cm. Submitted entirely, one cassette. 1. Signed (signature on file) Kevon Castro MD 1222 END OF REPORT * ML=Testing performed at Main Lab DEPARTMENT OF PATHOLOGY, [address] [place] [address] Kevon Castro M.D. Director [facility] Permit #[id number] ---- RUN DATE: 11/28/10 [facility] NMI LIVE PAGE 1 RUN TIME: 3 Specimen Inquiry RUN USER: INTERFACE -- Name: DA GARCIA Status: [facility] Re11/28/10 Age/Sex: 75/M Unit#: [id number] Location: [facility] : 37 -- Specimen: [id number] SOUT Spec Date: 11/28/[address]: Eddie Cagle i, MD Spec Type: CYTOLOGY Received: 11/28/10 Copies to: Arnie norris MD SOURCE URINE washing left kidney PATIENT INFORMATION ACTUAL COLLECTION DATE: 11/28/10 GROSS DESCRIPTION 12.5 mls of redish yellow slightly cloudy fluid. DIAGNOSIS Atypical urothelial cells seen. Initial evaluation performed by oLuise WAGGONER([facility]) 11/28/10 Final Interpretation electronically signed by: PERRY LLANOS 11/28/10 1532 -- -- DEPARTMENT OF PATHOLOGY, [address] [place] [address] [facility] Permit #[id number] Kevon Castro M.D. Director Perry Llanos M.D. [facility]li -- 58 Recommended INR for Patients on Oral Anticoagulants Prophylaxis 2.0 - 3.0 Treatment of thrombosis 2.0 - 3.0 Prevention of embolism 2.0 - 3.0 Prevention of embolism from prosthetic heart valves 2.5 - 3.5 59 DIAGNOSIS,TREATMENT,AND THERAPY MUST BE BASED ON THE INR VALUE ALONE. 60 Anion gap measurement may be of limited value in the presence of any alkalosis, especially in a combined acid base disorder. . 61 Because ethnic data is not always readily available, this report includes an eGFR for both -Americans and non- Americans. The National Kidney Disease Education Program (NKDEP) does not endorse the use of the MDRD equation for patients that are not between the ages of 18 and 70, are , have extremes of body size, muscle mass, or nutritional status, or are non- or non-. According to the National Kidney Foundation, irrespective of diagnosis, the stage of the disease is based on the level of kidney function: Stage Description GFR(mL/min/1.73 m(2)) 1 Kidney damage with normal or decreased GFR 90 2 Kidney damage with mild decrease in GFR 60-89 3 Moderate decrease in GFR 30-59 4 Severe decrease in GFR 15-29 5 Kidney failure <15 (or dialysis) 62 * SERUM LEVELS OF PSA MEASURED USING THE [employer] ACCESS HYBRITECH IMMUNOASSAY SHOULD NOT BE INTERPRETED ABSOLUTE EVIDENCE OF THE PRESENCE OR ABSENCE OF DISEASE. THE PSA VALUE SHOULD BE USED IN CONJUNCTION WITH OTHER PERTINENT CLINICAL DIAGNOSTIC PROCEDURES. A PSA value in the range of 0.1 to 0.6 ng/ml is indeterminate if being used as an indicator of recurrent or residual disease. . 63 Anion gap measurement may be of limited value in the presence of any alkalosis, especially in a combined acid base disorder. . 64 Note change in reference range as of 02/18/08. The change was based on recommendations from the [place] [employer]. 65 Please note change in reference range effective 07 . 66 A metabolite of Naproxen, O-desmethylnaproxen, has been shown to interfere with the Jendrassik-Jamey method for measuring total bilirubin. Samples from patients who have taken Naproxen have shown spurious elevation in total bilirubin levels. 67 Because ethnic data is not always readily available, this report includes an eGFR for both -Americans and non- Americans. The National Kidney Disease Education Program (NKDEP) does not endorse the use of the MDRD equation for patients that are not between the ages of 18 and 70, are , have extremes of body size, muscle mass, or nutritional status, or are non- or non-. According to the National Kidney Foundation, irrespective of diagnosis, the stage of the disease is based on the level of kidney function: Stage Description GFR(mL/min/1.73 m(2)) 1 Kidney damage with normal or decreased GFR 90 2 Kidney damage with mild decrease in GFR 60-89 3 Moderate decrease in GFR 30-59 4 Severe decrease in GFR 15-29 5 Kidney failure <15 (or dialysis) 68 CHOLESTEROL INTERPRETATION: Desirable: Less than 200 MG/DL Borderline-High Risk: 200-239 MG/DL High-Risk: 240 MG/DL and over 69 HDL INTERPRETATION: Undesirable: High Risk: Less than 40 MG/DL Desirable: Low Risk: Greater than 60 MG/DL 70 LDL INTERPRETATION: Low Risk Optimal Level: LDL Less than 100 MG/DL Near or Above Optimal: LDL 100-129 MG/DL Borderline High Risk: LDL 130-159 MG/DL High Risk: LDL 160-189 MG/DL Very High Risk: LDL Greater than 189 MG/DL 71 * SERUM LEVELS OF PSA MEASURED USING THE [employer] ACCESS HYBRITECH IMMUNOASSAY SHOULD NOT BE INTERPRETED ABSOLUTE EVIDENCE OF THE PRESENCE OR ABSENCE OF DISEASE. THE PSA VALUE SHOULD BE USED IN CONJUNCTION WITH OTHER PERTINENT CLINICAL DIAGNOSTIC PROCEDURES. A PSA value in the range of 0.1 to 0.6 ng/ml is indeterminate if being used as an indicator of recurrent or residual disease. . 72 CHOLESTEROL INTERPRETATION: Desirable: Less than 200 MG/DL Borderline-High Risk: 200-239 MG/DL High-Risk: 240 MG/DL and over 73 HDL INTERPRETATION: Undesirable: High Risk: Less than 40 MG/DL Desirable: Low Risk: Greater than 60 MG/DL 74 LDL INTERPRETATION: Low Risk Optimal Level: LDL Less than 100 MG/DL Near or Above Optimal: LDL 100-129 MG/DL Borderline High Risk: LDL 130-159 MG/DL High Risk: LDL 160-189 MG/DL Very High Risk: LDL Greater than 189 MG/DL 75 Anion gap measurement may be of limited value in the presence of any alkalosis, especially in a combined acid base disorder. . 76 Note change in reference range as of 02/18/08. The change was based on recommendations from the [place] [employer]. 77 Please note change in reference range effective 07 . 78 * SERUM LEVELS OF PSA MEASURED USING THE [employer] ACCESS HYBRITECH IMMUNOASSAY SHOULD NOT BE INTERPRETED ABSOLUTE EVIDENCE OF THE PRESENCE OR ABSENCE OF DISEASE. THE PSA VALUE SHOULD BE USED IN CONJUNCTION WITH OTHER PERTINENT CLINICAL DIAGNOSTIC PROCEDURES. A PSA value in the range of 0.1 to 0.6 ng/ml is indeterminate if being used as an indicator of recurrent or residual disease. . 79 ---- RUN DATE: 03/15/08 [facility] NMI LIVE PAGE 1 RUN TIME: 1603 Specimen Inquiry RUN USER: INTERFACE -- Name: DA GARCIA Status: REG REF Re03/14/08 Age/Sex: 72/M Unit#: [id number] Location: [facility]. : 37 -- Specimen: [id number] SOUT Spec Date: 03/14/[address]: Molina baugh MD Spec Type: SURGICAL P Received: 03/14/08-1026 Copies to: Alex norris MD SPECIMEN 1) BIOPSY IC VALVE 2) BIOPSY CECAL POLYPS 3) BIOPSY COLON POLYP AT 25 CM HISTORY CLINICAL INFORMATION: Colon carcinoma screening GROSS DESCRIPTION 1) The specimen is received in formalin labelled Da Garcia, Biopsy Ileocecal Valve, and consists of two, monroy-brown, soft tissue fragments measuring 0.4 x 0.2 x 0.1 cm. Submitted entirely, one cassette. 2) The specimen is received in formalin labelled Da Garcia, Biopsy Cecal Polyps, and consists of multiple, monroy, soft tissue fragments measuring 0.6 x 0.6 x 0.2 cm. in aggregate. Submitted entirely, one cassette. 3) The specimen is received in formalin labelled Da Garcia, Biopsy Colon Polyp at 25 cm., and consists of a monroy, soft tissue fragment measuring 0.3 x 0.2 x 0.2 cm. Submitted entirely, one cassette. DIAGNOSIS 1) Ileocecal valve, biopsy: A) Large intestinal mucosa with no significant pathologic abnormality. B) No evidence of neoplasia identified. 2) Colon, cecum, biopsy: A) Tubular adenoma. B) No high grade dysplasia or malignancy. 3) Colon, 25 cm., biopsy: A) Tubular adenoma. B) No high grade dysplasia or malignancy. Signed Electronically by: KEVON CASTRO MD 03/15/08 1603 -- DEPARTMENT OF PATHOLOGY, [address] [place] [address] [facility] Permit #[id number] Kevon Castro M.D. Director of Laboratories -- 80 FASTING 81 Classification: Desirable . 82 CALCULATED LDL APPROXIMATES THE VALUE OF A DIRECT LDL MEASUREMENT. Classification: Optimal Level . 83 Anion gap measurement may be of limited value in the presence of any alkalosis, especially in a combined acid base disorder. . Procedures Date CPT Code Description Status Comment 11/11/2017 74028 Inject/Drain Joint/Bursa Major Completed W/O US 11/04/2017 80400 EKG Tracing & Interpretation Completed 10/14/2017 33538 Chemodenervation Of Neck Muscles Completed Excluding Larynx, Unilateral 07/09/2017 50278 Chemodenervation Of Neck Muscles Completed Excluding Larynx, Unilateral 02/18/2017 14157 Chemodenervation Of Neck Muscles Completed Excluding Larynx, Unilateral 01/29/2017 73365 EKG Tracing & Interpretation Completed 01/15/2017 69418 Diffusing Capacity Completed 01/15/2017 18757 Plethysmography Determination Completed Lung Volumes & Per Airway Resist 01/15/2017 83288 Pulmonary Stress Test Simple Completed 01/15/2017 04466 Pulmonary Function><Bronchodil Completed 12/10/2016 Diabetic Retinal Eye Exam Completed 11/04/2016 01113 Chemodenervation Of Neck Muscles Completed Excluding Larynx, Unilateral 10/29/2016 27129 EKG Tracing & Interpretation Completed 05/14/2016 44792 Chemodenervation Of Neck Muscles Completed Excluding Larynx, Unilateral 03/01/2016 51685 Holter Monitor Review (24 hr)dr Completed review & interp only 02/29/2016 48430 ECG Monitor/Recording W/Visual Completed Superimposition Scanning 02/21/2016 58400 ECHO Transthoracic, Real-Time 2D Completed With Doppler And Color Flow 01/29/2016 34267 Holter Monitor Review (24 hr) Completed review & interp only 01/29/2016 21619 ECG Monitor/Recording W/Visual Completed Superimposition Scanning 01/25/2016 34303 Pulmonary Function><Bronchodil Completed 01/25/2016 74562 Plethysmography Determination Completed Lung Volumes & Per Airway Resist 01/25/2016 94484 Diffusing Capacity Completed 01/23/2016 69859 EKG Tracing & Interpretation Completed 01/23/2016 37233 Chemodenervation Of Neck Muscles Completed Excluding Larynx, Unilateral 10/03/2015 51016 Chemodenervation Of Neck Muscles Completed Excluding Larynx, Unilateral 07/12/2015 92665 Closed TRTMT Clavicular Fracture Completed 06/07/2015 78779 Chemodenervation Of Neck Muscles Completed Excluding Larynx, Unilateral 06/05/2015 26536 Diffusing Capacity Completed 06/05/2015 21998 Plethysmography Determination Completed Lung Volumes & Per Airway Resist 06/05/2015 56306 Pulmonary Function><Bronchodil Completed 03/07/2015 27566 Chemodenervation Of Neck Muscles Completed Excluding Larynx, Unilateral 02/21/2015 98492 EKG, Interpretation Only Completed 01/05/2015 49826 Diffusing Capacity Completed 01/05/2015 29338 Plethysmography Determination Completed Lung Volumes & Per Airway Resist 01/05/2015 53051 Pulmonary Function><Bronchodil Completed 10/25/2014 47502 Chemodenervation Of Neck Muscles Completed Excluding Larynx, Unilateral 07/27/2014 97061 Chemodenervation Of Neck Muscles Completed Excluding Larynx, Unilateral 07/07/2014 Diabetic Retinal Eye Exam Completed Document: 07/07/14 - Consult Ophthalmology-Bersani 04/26/2014 74772 Chemodenervation Of Neck Muscles Completed Excluding Larynx, Unilateral 02/02/2014 Diabetic Retinal Eye Exam Completed Document: 02/02/14 - Consult Ophthalmology-Arleo 01/21/2014 51716 Chemodenervation Of Neck Muscles Completed Excluding Larynx, Unilateral 11/30/2013 80112 EKG Tracing & Interpretation Completed 10/22/2013 04969 Chemodenervation Of Neck Muscles Completed Excluding Larynx, Unilateral 07/19/2013 31244 Chemodenervation Of Neck Muscles Completed Excluding Larynx, Unilateral 07/19/2013 12426 Needle Electromyography For Completed Guidance W/Chemodenervation 07/16/2013 23488 Left Heart Cath. Incl S/I Completed Coronaries, Angio S/I V Gram If Done 07/16/2013 60672 Cath PLMT&NJX L Ventriculog Img Completed S&I 07/16/2013 05202 Left Health Catheterization Completed W/Inj For Left Ventriculography,S&I 07/13/2013 00299 EKG Tracing & Interpretation Completed 06/24/2013 84402 Treadmill Interp/Report Only Completed 06/24/2013 37727 Stress Test Supervsn W/Out I/R Completed 04/21/2013 36233 Destruction W/Neurolytic Completed Agent,Neck Muscles 04/20/2013 85279 Treadmill Interp/Report Only Completed 04/20/2013 02737 Stress Test Supervsn W/Out I/R Completed 03/31/2013 93183 ECHO Stress Test Incl Perf Completed Contiuous ekg Monitoring W/Phys Superv 03/31/2013 10031 ECHO Stress Test Incl Perf Completed Contiuous ekg Monitoring W/Phys Superv 03/10/2013 24825 ECHO Transthoracic, Real-Time 2D Completed With Doppler And Color Flow 03/08/2013 75987 EKG Tracing & Interpretation Completed 01/13/2013 20862 Destruction W/Neurolytic Completed Agent,Neck Muscles 01/05/2013 00100 EKG Tracing & Interpretation Completed 10/02/2012 85019 Destruction W/Neurolytic Completed Agent,Neck Muscles 05/19/2012 66227 Destruction W/Neurolytic Agent, Completed Facial Nerve Muscle, Unilateral 04/30/2012 Colonoscopy Completed 03/24/2012 70885 EKG Tracing & Interpretation Completed 02/10/2012 66738 Destruction W/Neurolytic Completed Agent,Neck Muscles 02/14/2011 Diabetic Retinal Eye Exam Completed Document: 02/14/11 - Consult Ophthalmology/Arleo 03/08/2010 28711 EKG Tracing & Interpretation Completed 03/08/2010 90333 EKG Tracing & Interpretation Completed 03/30/2008 Colonoscopy Completed 5 yr f/u 01/28/2008 Mammogram Completed Encounters Type Date Location Provider CPT E/M Dx Office Visit 11/11/2017 [place] [address] S83.221A 10:00a Of C.M.A. Office Visit 11/04/2017 [facility] David Milian, 32621 J84.10 10:00a Berna I10 R07.9 R06.00 Office Visit 07/14/2017 9:00a [facility] Internal Medicine Alex Lobo, 77338 N18.3 - Tbcapo Pierson M.D.,FACP R80.8 M25.552 Office Visit 06/16/2017 8:30a [facility] [place] [address] J84.10 Services Of [facility] Office Visit 03/26/2017 9:30a [facility] Of Chris Bearden M.D. 77398 M76.62 C.M.A. Office Visit 03/26/2017 10:30a [facility] Internal Medicine - Alex Lobo, 74624 Z00.01 [place] Dangelo Coronel,FACP G24.3 M10.071 I10 Z23 Office Visit 02/26/2017 8:00a [facility] Of Chris Bearden M.D. 39800 M76.62 C.M.A. Office Visit 01/29/2017 10:00a [facility] David Milian, 73386 J84.10 M.DWillow I10 R00.1 Office Visit 12/13/2016 10:00a [facility] [place] [address] J84.10 Services Of [facility] Office Visit 11/18/2016 2:30p [facility] BLAKE Guerra 13602 I10 R00.1 Office Visit 11/07/2016 4:40p [facility] Internal Medicine Alex Lobo, 07551 J18.1 - Tbcapo Pierson M.D.,FACP J84.10 Office Visit 10/29/2016 8:20a [facility] David Milian 57311 J84.10 M.DWillow I10 R06.00 Office Visit 06/14/2016 9:45a [facility] [place] [address] J84.10 Services Of [facility] Office Visit 03/06/2016 10:00a [facility] BLAKE Guerra 43626 I10 R00.1 Office Visit 01/23/2016 11:40a [facility] David Milian M.D. 13049 I10 R06.00 R07.9 Office Visit 12/11/2015 10:45a [facility] [place] [address] J84.112 Services Of [facility] E66.09 Office Visit 07/20/2015 8:15a [facility] Radha Oneil 78656 S42.001A Services Of [facility] J84.112 Office Visit 06/12/2015 10:00a [facility] [place] [address] J84.112 Services Of [facility] Office Visit 06/01/2015 9:10a [facility] Internal Medicine Alex Lobo, 90682 Z00.01 - [place] Dangelo Coronel,FACP J84.112 N20.0 I50.32 H81.10 Office Visit 03/16/2015 11:30a [facility] [place] [address] 516.31 Services Of [facility] Office Visit 12/23/2014 8:20a [facility] Internal Medicine Alex Mervin Lobo, [address] M.D.,FACP 274.9 Office Visit 12/16/2014 9:30a [facility] [address] 516.31 Services Of [facility] Office Visit 11/14/2014 11:10a [facility] Internal Medicine AlexTracey Lobo, [address] M.D.,FACP 281.1 311 516.30 Office Visit 05/23/2014 8:30a [facility] Internal Medicine Alex Lobo, 86282 V70.0 - Julia Coronel,FACP 516.30 274.11 428.32 Office Visit 04/21/2014 9:30a [facility] Internal Medicine Alex Lobo, 88402 V72.81 - Julia Coronel,FACP 366.15 516.31 Office Visit 03/02/2014 10:50a [facility] Internal Medicine Alex Lobo, 49795 V72.84 - Julia Coronel,FACP 173.12 516.30 333.83 Office Visit 01/27/2014 8:30a [facility] Internal Medicine Alex Lobo, 90272 516.31 - Julia Coronel,FACP Office Visit 11/30/2013 3:20p [facility] David Milian, 22702 786.09 M.DWillow 786.05 428.32 Office Visit 11/23/2013 9:00a [facility] Internal Medicine Lety Reddy, N.P. 98446 461.0 - Julia 786.09 Office Visit 07/21/2013 3:40p [facility] Astrid Yang, 61649 786.50 M.D. 786.05 414.01 Office Visit 07/16/2013 11:30a [facility] Astrid Yang, 33811 786.50 M.D. 786.05 Office Visit 07/13/2013 10:20a [facility] Astrid Yang, 53464 786.05 M.D. 786.09 786.50 Office Visit 06/24/2013 2:00p [facility] David Milian, 62443 786.05 M.D. Office Visit 06/17/2013 2:40p [facility] David Milian, 76744 428.32 M.D. 786.09 786.50 Office Visit 05/25/2013 9:10a [facility] Internal Medicine Alex Lobo, 96076 V70.0 - Julia Coronel,FACP 428.32 786.09 Office Visit 05/03/2013 4:00p [facility] Internal Medicine Alex Lobo, 79557 518.89 - Julia Coronel,FACP Office Visit 04/21/2013 9:00a [facility] Arnie DgWillow Mora, 28259 333.83 Services Of Burt Coronel Office Visit 03/31/2013 2:30p [facility] David Milian, 60351 428.32 M.DWillow 786.09 786.50 Office Visit 03/08/2013 10:10a [facility] Internal Medicine Alex Lobo, 77664 786.09 - Julia Coronel,FACP 427.9 Office Visit 01/25/2013 8:15a [facility] Of Chris Bearden M.D. 00905 831.09 C.M.A. Office Visit 01/05/2013 3:20p [facility] Internal Medicine - Dany Treviño, 04848 796.2 Julia Coronel 831.09 Office Visit 01/04/2013 1:45p [facility] Of Chris Bearden M.D. 13987 831.09 C.M.A. Office Visit 07/06/2012 1:20p [facility] Internal Medicine Dany Treviño, 63759 709.9 - Julia Coronel Office Visit 06/24/2012 11:40a [facility] Internal Medicine Dilcia Pepe M.D. 93151 461.0 - Julia Office Visit 03/24/2012 10:30a [employer] Internal Medicine Lety Reddy, 17959 172.8 [facility] N.P. 333.83 296.30 427.89 V70.0 302.72 V04.81 V06.1 780.4 372.14 Office Visit 02/10/2012 9:15a [facility] Arnie Najeraney, 10393 333.83 Services Of [employer] M.DWillow Office Visit 04/12/2011 1:00p DO Not Use [employer] AT Dilcia Pepe M.D. 54993 V72.83 [facility] 296.30 427.89 V04.81 Office Visit 11/13/2010 4:20p DO Not Use [employer] AT [facility] Mervin [place], 95271 274.9 Salazar Coronel,[facility] Office Visit 05/09/2010 10:00a DO Not Use [employer] AT [facility] Mervin [place], 13008 333.83 Ranchitadominique Coronel,[facility] 296.30 427.89 Office Visit 03/08/2010 12:15p DO Not Use [employer] AT [facility] Mervin [place], 18019 427.89 Ranchitadominique Coronel,[facility] Office Visit 02/20/2010 8:40a DO Not Use [employer] AT Imer Montoya, 88422 780.4 Salazar Coronel Office Visit 07/13/2008 10:00a DO Not Use [employer] [place] [address] V77.91 [facility] V82.9 296.30 611.72 Office Visit 01/28/2008 11:30a DO Not Use [employer] [place] [address] 611.72 [facility] 333.83 530.81 296.30 Office Visit 07/08/2007 9:00a DO Not Use [employer] AT [facility] Mervin [place], 99373 333.83 Ranchitadominique Coronel,FACP 530.81 724.5 296.30 211.3 Office Visit 04/29/2007 10:00a DO Not Use [employer] AT [facility] Mervin [place], 40408 466.0 Ranchitadominique Coronel,FACP 724.5 530.81 333.83 599.7 Plan of Care Future Appointment(s):07/01/2018 10:30 am - Radha Oneil MD at [facility] Services Of [facility]02/11/2018 10:00 am - Arnie Mora M.D. at [facility]03/27/2018 10:20 am - Alex Lobo M.D.,FACP at [facility] Internal Medicine - [address]12/29/2017 - Nilam Rivera N.P.J84.10 Pulmonary fibrosis, unspecifiedComments:Breathing tests improved.Follow up:f/u OV 6mo w/ CXR, CMP, PFTs/6MWT prior
[2018-01-22 14:35] VITALS: BP 150/79
--- NOTE | 2018-01-22 15:08 | UC ---
Skin Complaint HPI - HPI Summary HPI Summary: This is scribe Yamile Arambula documenting for attending Vicky Guillen M.D. Patient is an 82 y/o male who presents to c/o a skin problem. He states he was in [place] for 1 week, and just got back yesterday. 2 weeks ago, he noticed an infected spot below his right knee that is sensitive to the touch, and is not improving. Patient initially thought it was a normal abrasion. The spot is described as a red area, with a central black crust that developed 5 days ago. Patient denies any fever, drainage, other symptoms, or injury to the area. Patient denies using any topical medications or creams on the wound. He also has an open wound on his right elizabeth that he states is normal, which he applied Neosporin too. Patient frequently sees his kiln maintenance. PMHx HTN, pulmonary fibrosis, and melanoma. Patient denies any smoking or alcohol use. 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 - History of Current Complaint Chief Complaint: UCSkin Stated Complaint: SKIN ISSUE Hx Obtained From: Family/Senior Controller Onset/Duration: Gradual Onset, Lasting Weeks - 2, Still Present Timing: Constant Current Severity: None Pain Intensity: 0 Pain Scale Used: 0-10 Numeric Location: Other - Right knee area Character: Redness - with black crust Aggravating Factor(s): Touch Alleviating Factor(s): Nothing Associated Signs & Symptoms: Negative: Drainage Related History: Other: - Melanoma, sun damage - Allergy/Home Medications Allergies/Adverse Reactions: Allergies Allergy/AdvReac Type Severity Reaction Status Date / Time levofloxacin Allergy STRAIN OF Verified 01/22/18 14:36 THE ACHILLES TENDON Home Medications: Home Medications Metoprolol Succinate [Metoprolol Succinate ER] 25 mg PO DAILY 01/22/18 [History Confirmed 01/22/18] Review of Systems Constitutional: Other - NEGATIVE: fever Skin: Other - "spot" with red area and central black crusting, NEGATIVE: drainage Eyes: Negative ENT: Negative Respiratory: Negative Cardiovascular: Other - treated htn, attributes today's elevation to recent travel and lack of rest. Gastrointestinal: Negative Genitourinary: Negative Motor: Negative Neurovascular: Negative Musculoskeletal: Negative Neurological: Negative Psychological: Negative All Other Systems Reviewed And Are Negative: Yes PMH/Surg Hx/FS Hx/Imm Hx Cardiovascular History: Hypertension Respiratory History: Other Other Respiratory History: Pulmonary fibrosis Psychological History: Depression Other Cancer History: Melanoma - Surgical History Surgical History: Yes Surgery Procedure, Year, and Place: JOSEF-2005, [facility] [place]. LITHOTRIPSY-URINARY STENTS -2010, [facility] [place]. REMOVED MELANOMA ON BACK. LEFT SHOULDER DISLOCATION 12/31/2012 [facility] [place] [facility]. right shoulder fracture 2015 - Family History Known Family History: Positive: Respiratory Disease - Social History Alcohol Use: None Alcohol Amount: 3-4 DRINKS/WEEK Substance Use Type: None Smoking Status (MU): Never Smoked Tobacco Type: Cigarettes Have You Smoked in the Last Year: No Physical Exam Triage Information Reviewed: Yes Appearance: Well-Appearing Vital Signs: Initial Vital Signs Temp 98.1 F 01/22/18 14:31 Pulse 81 01/22/18 14:31 Resp 18 01/22/18 14:31 BP 150/79 01/22/18 14:31 Pulse Ox 98 01/22/18 14:31 Cardiovascular: Positive: RRR, No Murmur Skin: Positive: significant lesion(s) - right foreleg, inferior to medial knee, has firm raised warty nodule approx 12 mm with central dark crust. Mild erythema without warmth surrounding over approx 2 cm area. Minimally tender, no fluctuance. Course/Dx - Course Course Of Treatment: advised to follow up with his kiln maintenance for evaluation and excision - Diagnoses Provider Diagnoses: warty nodule right foreleg (benign v malignant growth). Discharge - Sign-Out/Discharge Documenting (check all that apply): Patient Departure - Discharge Plan Condition: Stable Disposition: HOME Patient Education Materials: Atypical Mole (ED) Referrals: Alex Lobo MD [Primary Care Provider] - Additional Instructions: The skin nodule on the right leg is most consistent with a warty skin growth called keratoacanthoma. These are usually benign. You can apply vaselne or topical antibiotic to it, but I do not believe it is infected. Please schedule a visit with Dr. Hernandez for assessment and removal. - Billing Disposition and Condition Condition: STABLE Disposition: Home
== END 2018-01-22 15:00 | disposition home or self-care (01) ==
LOC: UCEAST 14:26
DX: B07.9 Viral wart, unspecified (principal); I10 Essential (primary) hypertension; J84.10 Pulmonary fibrosis, unspecified; Z88.1 Allergy status to other antibiotic agents; Z79.899 Other long term (current) drug therapy
CPT/HCPCS: 99211; G0463

== ENCOUNTER → 2018-04-03 09:34 | Day surgery (SDC) | payer MEDICARE, OTHER ==
[~2018-04-03 09:34] MED LIST changes: +Acetaminophen TAB* 325 MG PO PRN; +Dexamethasone IV* 4 MG/ML 1 ML (4 MG) ONE; +DiMENhydriNATE IV* 50 MG/ML VIAL IV PUSH PRN; +Famotidine IV* 10 MG/ML 2 ML (20 mg) ONE; +Lidocaine 2% PF * 5 ML VIAL ONE; +Lidocaine 4% TOPICAL* 50 ML TOP.SOLN ONE; +Midazolam* 1 MG/ML 2 ML VIAL (2 MG) ONE; +Naloxone* 0.4 MG/ML 1 ML VIAL IV PRN; +Ondansetron INJ* 2 MG/ML VIAL ONE; +Oxymetazoline 0.05% NASAL SPR* 15 ML BTL ONE; +PROCHLORPERAZINE INJ 5 MG/ML 2 ML VIAL IV PRN; +Propofol* 10 MG/ML 20 ML BTL IV PUSH ONE; +Succinylcholine* 20 MG/ML 10 ML VIAL ONE; +fentaNYL* 50 MCG/ML 2 ML VIAL (100 MCG VIAL) IV PRN; +fentaNYL* 50 MCG/ML 2 ML VIAL (100 MCG VIAL) ONE; +oxyCODONE/Acetamin 5/325 MG* TAB PO PRN
[2018-04-03 13:08] VITALS: BP 151/87
--- NOTE | 2018-04-04 04:49 | OP ---
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 OPERATIVE PROCEDURE: Microlaryngoscopy with Prolaryn Plus injection into the left vocal cord under general anesthesia. COMPLICATIONS: None. SPECIMENS: None. ESTIMATED BLOOD LOSS: None. CONDITION: Good. DESCRIPTION OF PROCEDURE: The patient was taken into the operating room, placed in the supine position on the operating table, general anesthesia was induced and he was orotracheally intubated. He was turned and draped for surgery. Tooth guard was placed in upper teeth and laryngoscope was inserted and suspended from the suspension system. Microscope was brought in. The vocal cords were anesthetized with 4% lidocaine and some oxymetazoline on a pledget and then the Prolaryn injection was performed into the lateral aspect of the vocal cord for a total of 0.3 mL in the posteromedial and more anterior positions. Laryngoscope and tooth guards were removed. The patient tolerated the procedure well, there were no complications. [id number] #: [id number] MTDD
== END | disposition home or self-care (01) ==
LOC: OR 09:34
PROVIDERS: ATTEND Otolaryngology
DX: R49.0 Dysphonia (principal); J84.10 Pulmonary fibrosis, unspecified; N18.9 Chronic kidney disease, unspecified; K21.9 Gastro-esophageal reflux disease without esophagitis; M19.90 Unspecified osteoarthritis, unspecified site; I49.1 Atrial premature depolarization; F32.9 Major depressive disorder, single episode, unspecified; I50.30 Unspecified diastolic (congestive) heart failure
CPT/HCPCS: A9270-GY; J0330; J1100; J2250; J2405; J2704; J3010

== ENCOUNTER → 2019-03-16 13:30 | Day surgery (SDC) | payer MEDICARE, OTHER ==
[~2019-03-16 13:30] MED LIST changes: -Acetaminophen TAB* 325 MG PO PRN; -Buffered Lidocaine 0.9% SYRIN* 5 ML/SYR SYRINGE INTRADERM ONE; +Buffered Lidocaine 1% SYRIN* 1 ML/SYRINGE INTRADERM ONE; +Bupivacaine 0.25% SDV PF* 10 ML VIAL INJ ONE; -Dexamethasone IV* 4 MG/ML 1 ML (4 MG) IV SLOW PU ONE; -DiMENhydriNATE IV* 50 MG/ML VIAL IV PUSH PRN; +KETAMINE HCL* 50 MG/ML 10 ML VIAL ONE; +Lactated Ringers 1000 ML Bag* 1,000 ML IV SCH; +Lidocaine 1% w EPI 1:100,000* MDV 20 ML VIAL ONE; -Lidocaine 4% TOPICAL* 50 ML TOP.SOLN ONE; -Midazolam* 1 MG/ML 2 ML VIAL (2 MG) ONE; +Midazolam* 1 MG/ML 5 ML VIAL (5 MG) ONE; +Ondansetron INJ* 2 MG/ML VIAL IV PRN; -Oxymetazoline 0.05% NASAL SPR* 15 ML BTL ONE; -PROCHLORPERAZINE INJ 5 MG/ML 2 ML VIAL IV PRN; -Propofol* 10 MG/ML 20 ML BTL IV PUSH ONE; +Propofol* 10 MG/ML 20 ML BTL ONE; -Succinylcholine* 20 MG/ML 10 ML VIAL ONE; +ceFAZolin 2 GM PREMIX in ORs 2 GM/50 ML BAG ONE; -oxyCODONE/Acetamin 5/325 MG* TAB PO PRN
[2019-03-16 17:25] VITALS: BP 171/86
== END | disposition home or self-care (01) ==
LOC: OR 13:30
PROVIDERS: ATTEND Plastic Surgery
DX: D03.4 Melanoma in situ of scalp and neck (principal); Z85.820 Personal history of malignant melanoma of skin; Z85.828 Personal history of other malignant neoplasm of skin; N18.3 Chronic kidney disease, stage 3 (moderate); Z87.442 Personal history of urinary calculi; J84.10 Pulmonary fibrosis, unspecified; G47.33 Obstructive sleep apnea (adult) (pediatric)
CPT/HCPCS: 88305; J0690; J1100; J2250; J2405; J2704; J3010; J3490

== ENCOUNTER 2019-03-30 16:07 | Emergency (ER) | payer MEDICARE, OTHER ==
--- OUTSIDE RECORDS SUMMARY | 2019-03-30 16:21 | XMS REPORT | Continuity of Care Document ---
:1935 External Reference #:[id number] Author Name Nilam Rivera N.P. (transmitted by agent of provider Ninfa Wood) Address [address] [place] [address] Care Team Providers Name Role Phone Matt Greco MD - Pulmonary Disease Care Team Information Product Safety Associate [phone] Radha Oneil MD - Pulmonary Care Team Information Product Safety Associate Disease Matt Ordonez MD - Nephrology Care Team Information Product Safety Associate Matt Birch MD - Care Team Information Product Safety Associate [phone] Otolaryngology Frances Joseph MD - Internal Medicine Care Team Information Product Safety Associate Problems Active Problems Provider Date Essential hypertension Alex Lobo M.D.,FACP Onset: 03/05/2018 Chronic kidney disease stage 3 Alex Lobo M.D.,FACP Onset: 07/14/2017 Diffuse interstitial pulmonary Alex Lobo M.D.,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 Onset: 04/12/2011 Uric acid urolithiasis Alex Lobo M.D.,FACP Onset: 05/23/2014 Idiopathic pulmonary fibrosis Alex Lobo M.D.,FACP Onset: 06/01/2015 Closed fracture of clavicle Radha Oneil MD Onset: 07/20/2015 [place] Alex Lobo M.D.,FACP Onset: 03/26/2017 Note: RT Current tear of medial cartilage AND/OR meniscus Alin Milligan MD Onset: of knee Contusion of right shoulder, initial encounter Alin Milligan MD Onset: 02/27 Idiopathic gout, right ankle and foot Alin Milligan MD Onset: 02/27/2018 Social History Type Date Description Comments Sex Unknown Tobacco Use Start: Unknown Never Smoked Cigarettes ETOH Use Rarely consumes alcohol Patient states he may consume alcohol once a week Recreational Drug Use Denies Drug Use Tobacco Use Start: Unknown Patient has never smoked Smoking Status Reviewed: 02/08/19 Patient has never smoked Exercise Type/Frequency Exercises sporadically Allergies, Adverse Reactions, Alerts Active Allergies Reaction Severity Comments Date Levofloxacin achilles pain 11/18/2016 Inactive Allergies NKDA 04/29/2007 Medications Active Medications SIG Qnty Indications Ordering Date Provider Amlodipine Besylate 1 by mouth every 30tabs David Rossi 12/08/2018 salazar Parikh M.D. 2.5mg Tablets Vitamin D3 Super Take one capsule 90caps N18.3 Frances Joseph MD 11/06/2018 Strength daily 2000Unit Capsules Sertraline HCL Take 1 Tablet By 90tabs F32.9 Alex Jeffries 11/14/2014 50mg Mouth Every Day Berna Lobo,FACP Tablets Botox 12-14 injections Unknown 100Unit every 3 months Solution Rec Ofev 1 tab by mouth Unknown 100mg Capsules twice a day Allopurinol 1 by mouth every 180tabs Alex Jeffries 100mg day Berna Lobo,FACManuela Tablets Aspirin 81 1 by mouth every Unknown 81mg day Tablets DR Devine Medications Amoxicillin/Clavulanate take one 20tabs Unknown 12/07/2018 - Potassium tablet q12 12/24/2018 875-125mg Tablets hours for 10 days Cartia XT 1 by mouth 90caps Nilam S. 10/01/2018 - 120mg Caps ER 24HR every day Miguel, N.P. 10/01/2018 Amlodipine Besylate 1 by mouth 90tabs Nilam S. 10/01/2018 - 5mg Tablets every day Miguel, N.P. 12/08/2018 Medications Administered in Office Medication SIG Qnty Indications Ordering Provider Date Injection Onabotulinumtoxin Arnie Hill M.D. 01/06/2019 1 Unit Injection Injection DuarteabotulinumArnie Almendarez M.D. 10/06/2018 1 Unit Injection Injection Salvadorotulinummckayxin Arnie Hill M.D. 06/02/2018 1 Unit Injection Injection Onotulinummckayxin Arnie Hill M.D. 06/02/2018 1 Unit Injection Injection Duarteabotulinummckayxin Arnie Hill M.D. 02/11/2018 1 Unit Injection Triamcinolone (Kenalog) Alin Milligan MD 11/11/2017 Injection Injection OnotulinumArnie Almendarez M.D. 10/14/2017 1 Unit Injection Injection Salvadorotulinummckayxin Arnie Hill M.D. 07/09/2017 1 Unit Injection Injection SalvadorotulinumArnie Almendarez M.D. 02/18/2017 1 Unit Injection Injection SalvadorotArnie Marie M.D. 02/18/2017 1 Unit Injection Injection Arnie Prescott M.D. 11/04/2016 1 Unit Injection Injection SalvadorotulinumArnie Almendarez M.D. 11/04/2016 1 Unit Injection Injection Salvadorotulinumtoxin AArnie M.D. 05/14/2016 1 Unit Injection Injection Onabotulinumtoxin Sergio, Arnie Mora M.D. 05/14/2016 1 Unit Injection Injection Onabotulinumtoxin Sergio, Arnie Mora M.D. 01/23/2016 1 Unit Injection Injection Onabotulinumtoxin Sergio, Arnie Mora M.D. 01/23/2016 1 Unit Injection Injection Onabotulinumtoxin A, Arnie Mora M.D. 10/03/2015 1 Unit Injection Injection Onabotulinumtoxin Sergio, Arnie Mora M.D. 06/07/2015 1 Unit Injection Injection Onabotulinumtoxin Sergio, Arnie Mora M.D. 03/07/2015 1 Unit Injection Injection Onabotulinumtoxin Arnie Hill M.D. 10/25/2014 1 Unit Injection Injection Onabotulinumtoxin A, Arnie Mora M.D. 07/27/2014 1 Unit Injection Injection Onabotulinumtoxin Sergio, Arnie Mora M.D. 04/26/2014 1 Unit Injection Injection Onabotulinumtoxin Sergio, Arnie Mora M.D. 01/21/2014 1 Unit Injection Injection Onabotulinumtoxin Sergio, Arnie Mora M.D. 01/21/2014 1 Unit Injection Injection Onabotulinumtoxin Arnie Hill M.D. 10/22/2013 1 Unit Injection Injection Onabotulinumtoxin Sergio, Arnie Mora M.D. 10/22/2013 1 Unit Injection Injection Onabotulinumtoxin Sergio, Arnie Mora M.D. 04/21/2013 1 Unit Injection Injection Onabotulinumtoxin Sergio, Arnie Mora M.D. 04/21/2013 1 Unit Injection Injection Onabotulinumtoxin Sergio, Arnie Mora M.D. 01/13/2013 1 Unit Injection Injection Onabotulinumtoxin A, Arnie Mora M.D. 01/13/2013 1 Unit Injection Injection Onabotulinumtoxin Arnie Hill M.D. 10/02/2012 1 Unit Injection Injection Onabotulinumtoxin Arnie Hill M.D. 10/02/2012 1 Unit Injection Injection Onabotulinumtoxin Arnie Hill M.D. 05/19/2012 1 Unit Injection Injection Onabotulinumtoxin Arnie Hill M.D. 05/19/2012 1 Unit Injection Injection Onabotulinumtoxin Arnie Hill M.D. 02/10/2012 1 Unit Injection Immunizations CPT Code Status Date Vaccine Lot # [id number] Given 04/26/2018 Influenza Virus Vaccine, Quadrivalent, Split, Preservative Free 93318 Given 04/26/2018 Pneumococcal Conjugate Vaccine 13 Valent For Intramuscular Use 00988 Given 03/26/2017 Influenza Virus Vaccine, Quadrivalent, Split, [id number] Preservative Free 35466 Given 04/12/2016 Influ Virus Vaccine, Quadrivalent, Split Virus, [place] [id number] [address] Given 04/12/2015 Influenza Virus Vaccine, Quadrivalent, Split, [id number] Preservative Free 85743 Given 04/01/2014 Influenza Virus Vaccine, Quadrivalent, Split, [id number] Preservative Free 16385 Given 04/01/2014 Pneumococcal Conjugate Vaccine 13 Valent For Intramuscular Use 80306 Given 04/01/2014 Pneumococcal Conjugate Vaccine 13 Valent For [id number] Intramuscular Use 97300 Given 04/30/2013 Flu Vaccine Split Virus Preservative Free For [id number] Indiv 3Yr Older 44999 Given 03/24/2012 Tdap - Tetanus/Diptheria/Acellular Pertussis [id number] Q2038 Given 03/24/2012 Fluzone Vaccine [id number] Q2038 Given 04/12/2011 Fluzone Vaccine [id number] 78987 Given 05/09/2010 Pneumonia Vaccine 39909 Given 04/08/2010 Influenza Virus 3Yrs & Over 39632 Given 07/18/2008 Zoster (Zostavax) 88813 Given 07/18/2008 Zoster (Zostavax) 65899 Given 07/18/2008 Zoster (Zostavax) [id number] 16790 Given 05/14/2007 Influenza Virus 3Yrs & Over 51278 Given 05/14/2007 Influenza Virus 3Yrs & Over 93918 Given 05/14/2007 Influenza Virus 3Yrs & Over [id number] Vital Signs Date Vital Result Comment 02/08/2019 10:37am Height 69.25 inches 5'9.25" Weight 202.25 lb with shoes Heart Rate 76 /min right radial BP Systolic Sitting 140 mmHg ule, reg cuff BP Diastolic Sitting 82 mmHg ule, reg cuff BP Systolic Standing 136 mmHg ule, reg cuff BP Diastolic Standing 80 mmHg ule, reg cuff BMI (Body Mass Index) 29.6 kg/m2 Ejection Fraction 60-65% echo 10/08/18 01/20/2019 8:18am Height 69.25 inches 5'9.25" Weight 201.00 lb Heart Rate 72 /min BP Systolic Sitting 128 mmHg Lue large cuff BP Diastolic Sitting 80 mmHg Lue large cuff Respiratory Rate 12 /min O2 % BldC Oximetry 98 % BMI (Body Mass Index) 29.5 kg/m2 Results Test Date Facility Test Result H/L Range Note CBC Auto 01/29/2019 [facility] White Blood 7.7 10^3/uL Normal 3.5-10.[address] [place] [address] [phone] Red Blood Count 3.85 10^6/uL Low 4.18-5.48 Hemoglobin 12.2 g/dL Low 14.0-18.0 Hematocrit 36 % Low 42-52 Mean Corpuscular Volume 94 fL Normal 80-94 Mean Corpuscular Hemoglobin 32 pg High 27-31 Mean Corpuscular HGB Conc 34 g/dL Normal 31-36 Red Cell Distribution Width 14 % Normal 10-15 Platelet Count 185 10^3/uL Normal 150-450 Mean Platelet Volume 9.7 fL Normal 7.4-10.4 Abs Neutrophils 5.5 10^3/uL Normal 1.5-7.7 Abs Lymphocytes 1.3 10^3/uL Normal 1.0-4.8 Abs Monocytes 0.7 10^3/uL Normal 0-0.8 Abs Eosinophils 0.2 10^3/uL Normal 0-0.6 Abs Basophils 0.0 10^3/uL Normal 0-0.2 Abs Nucleated RBC 0.0 10^3/uL Granulocyte % 71.4 % Lymphocyte % 16.4 % Monocyte % 9.6 % Eosinophil % 2.2 % Basophil % 0.4 % Nucleated Red Blood Cells % 0.0 Comp Metabolic 01/29/2019 [facility] Sodium 143 mmol/L Normal 135-[address] [place] [address] [phone] Potassium 4.6 mmol/L Normal 3.5-5.0 Chloride 109 mmol/L Normal 101-111 Co2 Carbon Dioxide 26 mmol/L Normal 22-32 Anion Gap 8 mmol/L Normal 2-11 Glucose 110 mg/dL High 70-100 Blood Urea Nitrogen 60 mg/dL High 6-24 Creatinine 2.93 mg/dL High 0.67-1.17 One Over Creatinine 0.34 BUN/Creatinine Ratio 20.5 High 8-20 Calcium 8.7 mg/dL Normal 8.6-10.3 Total Protein 6.7 g/dL Normal 6.4-8.9 Albumin 3.8 g/dL Normal 3.2-5.2 Globulin 2.9 g/dL Normal 2-4 Albumin/Globulin Ratio 1.3 Normal 1-3 Total Bilirubin 0.30 mg/dL Normal 0.2-1.0 Alkaline Phosphatase 83 U/L Normal 34-104 Alt 11 U/L Normal 7-52 Ast 15 U/L Normal 13-39 Egfr Non- 20.7 >60 Egfr 25.0 >60 1 Lipid Profile 01/29/2019 [facility] Triglycerides 114 mg/dL 2 (Trig/Chol/HDL) [address] [place] [address] [phone] Cholesterol 162 mg/dL 3 HDL Cholesterol 46.5 mg/dL 4 LDL Cholesterol 93 mg/dL 5 Liver 01/29/2019 [facility] Direct 0.10 Normal 0.03-0.[address] Bilirubin mg/[place] [address] [phone] Indirect Bilirubin 0.2 mg/dL Low 0.3-1.0 Laboratory test 01/29/2019 [facility] Uric Acid 6.1 mg/dL Normal 4.4-7.[address] [place] [address] [phone] Phosphorus 4.1 mg/dL Normal 2.5-5.0 Magnesium 2.0 mg/dL Normal 1.9-2.7 Total Protein 24HR 01/29/2019 [facility] Urine Collection Time 24 hr Urine [address] [place] [address] [phone] Urine Total Volume 2200 mL Urine TP Concentration 138 mg/dL Urine Total Protein/24HR 3036 mg/24Hr High 0-165 Creatinine Clearance 01/29/2019 [facility] Urine Collection [address] [place] [address] [phone] Urine Total Volume 2200 mL Creatinine, Serum 2.91 mg/dL High 0.51-0.95 Urine Creatinine Concentration 39.74 mg/dL Creatinine Clearance 21 mL/min Low 97-137 CBC Auto 01/06/2019 [facility] White Blood 7.4 10^3/uL Normal 3.5-10.[address] [place] [address] [phone] Red Blood Count 3.99 10^6/uL Low 4.18-5.48 Hemoglobin 12.4 g/dL Low 14.0-18.0 Hematocrit 37 % Low 42-52 Mean Corpuscular Volume 94 fL Normal 80-94 Mean Corpuscular Hemoglobin 31 pg Normal 27-31 Mean Corpuscular HGB Conc 33 g/dL Normal 31-36 Red Cell Distribution Width 15 % Normal 10-15 Platelet Count 161 10^3/uL Normal 150-450 Mean Platelet Volume 9.9 fL Normal 7.4-10.4 Abs Neutrophils 5.3 10^3/uL Normal 1.5-7.7 Abs Lymphocytes 1.2 10^3/uL Normal 1.0-4.8 Abs Monocytes 0.6 10^3/uL Normal 0-0.8 Abs Eosinophils 0.2 10^3/uL Normal 0-0.6 Abs Basophils 0.0 10^3/uL Normal 0-0.2 Abs Nucleated RBC 0.0 10^3/uL Granulocyte % 71.8 % Lymphocyte % 16.5 % Monocyte % 8.5 % Eosinophil % 2.9 % Basophil % 0.3 % Nucleated Red Blood Cells % 0.0 Comp Metabolic 01/06/2019 [facility] Sodium 142 mmol/L Normal 135-[address] [place] [address] [phone] Potassium 4.8 mmol/L Normal 3.5-5.0 Chloride 108 mmol/L Normal 101-111 Co2 Carbon Dioxide 28 mmol/L Normal 22-32 Anion Gap 6 mmol/L Normal 2-11 Glucose 111 mg/dL High 70-100 Blood Urea Nitrogen 45 mg/dL High 6-24 Creatinine 2.65 mg/dL High 0.67-1.17 One Over Creatinine 0.37 BUN/Creatinine Ratio 17.0 Normal 8-20 Calcium 8.6 mg/dL Normal 8.6-10.3 Total Protein 6.5 g/dL Normal 6.4-8.9 Albumin 3.6 g/dL Normal 3.2-5.2 Globulin 2.9 g/dL Normal 2-4 Albumin/Globulin Ratio 1.2 Normal 1-3 Total Bilirubin 0.40 mg/dL Normal 0.2-1.0 Alkaline Phosphatase 88 U/L Normal 34-104 Alt 16 U/L Normal 7-52 Ast 18 U/L Normal 13-39 Egfr Non- 23.2 >60 Egfr 28.1 >60 6 Laboratory test 01/06/2019 [facility] Phosphorus 4.0 mg/dL Normal 2.5-5.[address] [place] [address] [phone] Magnesium 1.8 mg/dL Low 1.9-2.7 Laboratory 12/10/2018 [facility] TSH (Thyroid 2.12 Normal 0.34 -5.60 test finding [address] Stim Horm) mcIU/[place] [address] [phone] CBC No Diff 12/10/2018 [facility] White Blood 8.6 10^3/uL Normal 3.5-10.[address] [place] [address] [phone] Red Blood Count 3.84 10^6/uL Low 4.18-5.48 Hemoglobin 12.0 g/dL Low 14.0-18.0 Hematocrit 37 % Low 42-52 Mean Corpuscular Volume 96 fL High 80-94 Mean Corpuscular Hemoglobin 31 pg Normal 27-31 Mean Corpuscular HGB Conc 33 g/dL Normal 31-36 Red Cell Distribution Width 15 % Normal 10-15 Platelet Count 195 10^3/uL Normal 150-450 Mean Platelet Volume 9.6 fL Normal 7.4-10.4 Liver Function 12/10/2018 [facility] Albumin 3.9 g/dL Normal 3.2-5.2 Panel [address] [place] [address] [phone] Total Bilirubin 0.30 mg/dL Normal 0.2-1.0 Direct Bilirubin 0.10 mg/dL Normal 0.03-0.18 Indirect Bilirubin 0.2 mg/dL Low 0.3-1.0 Total Protein 6.8 g/dL Normal 6.4-8.9 Globulin 2.9 g/dL Normal 2-4 Albumin/Globulin Ratio 1.3 Normal 1-3 Alkaline Phosphatase 81 U/L Normal 34-104 Alt 12 U/L Normal 7-52 Ast 15 U/L Normal 13-39 Creatinine 11/04/2018 [facility] Creatinine, 2.65 High 0.51- 0.[address] [facility] Serum mg/[place] [address] [phone] Urine Collection Time 24 hr Urine Total Volume 1450 mL Urine Creatinine Concentration 59.56 mg/dL Creatinine Clearance 23 mL/min Low 97-137 Total Protein 24HR 11/04/2018 [facility] Urine Collection Time 24 hr Urine [address] [place] [address] [phone] Urine Total Volume 1450 mL Urine TP Concentration 176 mg/dL Urine Total Protein/24HR 2552 mg/24Hr High 0-165 Laboratory test 11/04/2018 [facility] Phosphorus 4.0 mg/dL Normal 2.5-5.0 finding [address] [place] [address] [phone] Magnesium 2.0 mg/dL Normal 1.9-2.7 Comp Metabolic 11/04/2018 [facility] Sodium 144 mmol/L Normal 135-145 Panel [address] [place] [address] [phone] Potassium 5.0 mmol/L Normal 3.5-5.0 Chloride 109 mmol/L Normal 101-111 Co2 Carbon Dioxide 29 mmol/L Normal 22-32 Anion Gap 6 mmol/L Normal 2-11 Glucose 101 mg/dL High 70-100 Blood Urea Nitrogen 52 mg/dL High 6-24 Creatinine 2.58 mg/dL High 0.67-1.17 One Over Creatinine 0.38 BUN/Creatinine Ratio 20.2 High 8-20 Calcium 9.0 mg/dL Normal 8.6-10.3 Total Protein 6.7 g/dL Normal 6.4-8.9 Albumin 3.8 g/dL Normal 3.2-5.2 Globulin 2.9 g/dL Normal 2-4 Albumin/Globulin Ratio 1.3 Normal 1-3 Total Bilirubin 0.40 mg/dL Normal 0.2-1.0 Alkaline Phosphatase 84 U/L Normal 34-104 Alt 11 U/L Normal 7-52 Ast 14 U/L Normal 13-39 Egfr Non- 24.0 >60 Egfr 29.0 >60 8 Basic Metabolic 10/22/2018 [facility] Sodium 144 mmol/L Normal 135-[address] [place] [address] [phone] Potassium 5.0 mmol/L Normal 3.5-5.0 Chloride 110 mmol/L Normal 101-111 Co2 Carbon Dioxide 27 mmol/L Normal 22-32 Anion Gap 7 mmol/L Normal 2-11 Glucose 70 mg/dL Normal 70-100 Blood Urea Nitrogen 51 mg/dL High 6-24 Creatinine 2.42 mg/dL High 0.67-1.17 BUN/Creatinine Ratio 21.1 High 8-20 Calcium 8.8 mg/dL Normal 8.6-10.3 Egfr Non- 25.8 >60 Egfr 31.2 >60 9 Laboratory test 10/20/2018 [facility] Thyroxine 5.65 g/dL Low 6.09-12.[address] [place] [address] [phone] TSH (Thyroid Stim Horm) 2.37 mcIU/mL Normal 0.34-5.60 Free T4 (Free Thyroxine) 0.68 ng/dL Normal 0.61-1.12 Vitamin D Total 25(Oh) 25.1 ng/mL Normal 20-50 10 Thyroid Panel 10/16/2018 [facility] Free T4 (Free <pending> [address] DR[address] Thyroxine) [place] [address] [phone] Thyroxine <pending> TSH (Thyroid Stim Horm) <pending> Laboratory test 10/16/2018 [facility] Vitamin D <pending> finding [address] Total 25(Oh) [place] [address] [phone] CBC Auto Diff 09/14/2018 [facility] White Blood 8.0 10^3/uL Normal 3.5-[address] Count 0.8 [place] [address] [phone] Red Blood Count 3.91 10^6/uL Low 4.18-5.48 Hemoglobin 12.2 g/dL Low 14.0-18.0 Hematocrit 37 % Normal 36-46 Mean Corpuscular Volume 95 fL High 80-94 Mean Corpuscular Hemoglobin 31 pg Normal 27-31 Mean Corpuscular HGB Conc 33 g/dL Normal 31-36 Red Cell Distribution Width 15 % Normal 10.5-15 Platelet Count 184 10^3/uL Normal 150-450 Mean Platelet Volume 9.6 fL Normal 7.4-10.4 Abs Neutrophils 5.9 10^3/uL Normal 1.5-7.7 Abs Lymphocytes 1.2 10^3/uL Normal 1.0-4.8 Abs Monocytes 0.6 10^3/uL Normal 0-0.8 Abs Eosinophils 0.3 10^3/uL Normal 0-0.6 Abs Basophils 0 10^3/uL Normal 0-0.2 Abs Nucleated RBC 0 10^3/uL Granulocyte % 73.0 % Lymphocyte % 15.4 % Monocyte % 7.5 % Eosinophil % 3.7 % Basophil % 0.4 % Nucleated Red Blood Cells % 0 Comp Metabolic 09/14/2018 [facility] Sodium 142 mmol/L Normal 135-[address] [place] [address] [phone] Potassium 4.9 mmol/L Normal 3.5-5.0 Chloride 107 mmol/L Normal 101-111 Co2 Carbon Dioxide 30 mmol/L Normal 22-32 Anion Gap 5 mmol/L Normal 2-11 Glucose 136 mg/dL High 70-100 Blood Urea Nitrogen 38 mg/dL High 6-24 Creatinine 2.18 mg/dL High 0.67-1.17 One Over Creatinine 0.45 BUN/Creatinine Ratio 17.4 Normal 8-20 Calcium 8.6 mg/dL Normal 8.6-10.3 Total Protein 6.4 g/dL Normal 6.4-8.9 Albumin 3.7 g/dL Normal 3.2-5.2 Globulin 2.7 g/dL Normal 2-4 Albumin/Globulin Ratio 1.4 Normal 1-3 Total Bilirubin 0.30 mg/dL Normal 0.2-1.0 Alkaline Phosphatase 86 U/L Normal 34-104 Alt 16 U/L Normal 7-52 Ast 17 U/L Normal 13-39 Egfr Non- 29.1 >60 Egfr 35.2 >60 11 Laboratory test 09/14/2018 [facility] Phosphorus 3.1 mg/dL Normal 2.5-5.[address] [place] [address] [phone] Magnesium 1.9 mg/dL Normal 1.9-2.7 Laboratory test 09/10/2018 [facility] PSA Screening 1.215 ng/mL 0-4.0 [address] [place] [address] [phone] Uric Acid 6.4 mg/dL Normal 4.4-7.6 1 Because ethnic data is not always [...] 5 Kidney failure <15 (or dialysis) 2 Desirable: <150 Borderline High: 150-199 High: 200-499 Very High: >500 3 Desirable: <200 Borderline High: 200-239 High: >239 4 Low: <40 Desirable: 40-60 High: >60 5 Desirable: <100 Near Optimal: 100-129 Borderline High: 130-159 High: 160-189 Very High: >189 6 Because ethnic data is not always readily [...] 15-29 5 Kidney failure <15 (or dialysis) 7 URINE COLLECTED FROM 11/03 1100 THROUGH 11/04 7600 8 Because ethnic data is not always [...] 5 Kidney failure <15 (or dialysis) 9 Because ethnic data is not always readily [...] 15-29 5 Kidney failure <15 (or dialysis) 10 Total 25-Hydroxyvitamin D2 and D3 (25-OH-VitD) <10 ng/mL (severe deficiency) 10-19 ng/mL (mild to moderate deficiency) 20-50 ng/mL (optimum levels) 51-80 ng/mL (increased risk of hypercalciuria) >80 ng/mL (toxicity possible) 11 Because ethnic data is not always readily [...] 15-29 5 Kidney failure <15 (or dialysis) 12 Serum levels of PSA measured using the [employer] [place] DXI Hybritech immunoassay should not be interpreted as absolute evidence of the presence or absence of disease. The PSA value should be used in conjunction with other pertinent clinical diagnostic procedures. The values obtained with different assay methods or kits cannot be used interchangeably. Procedures Date Code Description Status 01/06/2019 40399 Chemodenervation Of Neck Muscles Excluding Larynx, Completed Unilateral 12/08/2018 36712 EKG Tracing & Interpretation Completed 11/18/2018 60816 Sleep Study Unattended,HRT Rate,Oxygen Sat,Resp Completed Effort/Airflow 11/18/2018 22529 Sleep Study Unattended,HRT Rate,Oxygen Sat,Resp Completed Effort/Airflow 11/18/2018 85696 Diffusing Capacity Completed 11/18/2018 52659 Spirometry Incl Graphic Record Completed 10/08/2018 72001 ECHO Transthoracic, Real-Time 2D With Doppler And Completed Color Flow 10/08/2018 10331 ECHO Transthoracic, Real-Time 2D With Doppler And Completed Color Flow 10/07/2018 88552 Holter Monitor Review (24 hr)dr dave & interp only Completed 10/06/2018 74847 Chemodenervation Of Neck Muscles Excluding Larynx, Completed Unilateral 10/06/2018 89959 ECG Monitor/Recording W/Visual Superimposition Completed Scanning 10/06/2018 30098 ECG Monitor/Recording W/Visual Superimposition Completed Scanning 09/23/2018 42776 EKG Tracing & Interpretation Completed 12/10/2016 [id number] Diabetic Retinal Eye Exam Completed 07/07/2014 [id number] Diabetic Retinal Eye Exam Completed 02/02/2014 [id number] Diabetic Retinal Eye Exam Completed 04/30/2012 [id number] Colonoscopy Completed 02/14/2011 [id number] Diabetic Retinal Eye Exam Completed 03/30/2008 [id number] Colonoscopy Completed 01/28/2008 [id number] Mammogram Completed Medical Devices Description No Information Available Encounters Type Date Location Provider Dx Diagnosis Office Visit 01/20/2019 Pulmonology And Radha Oneil, G47.33 Obstructive sleep 8:15a Sleep Services Of apnea (adult) [facility] (pediatric) J84.10 Pulmonary fibrosis, unspecified Office Visit 12/25/2018 1:00p [facility] Nurse Visit I10 Essential cc (primary) hypertension Office Visit 12/16/2018 10:30a Pulmonology Benja Garcia J84.10 Pulmonary [facility] Of MD tu Oneil, [facility] unspecified G47.33 Obstructive sleep apnea (adult) (pediatric) R53.83 Other fatigue Office Visit 12/08/2018 10:20a [facility] David Rossi J84.10 Pulmonary Berna Parikh fibrosis, unspecified G47.33 Obstructive sleep apnea (adult) (pediatric) I10 Essential (primary) hypertension R42 Dizziness and giddiness I49.1 Atrial premature depolarization I35.1 Nonrheumatic aortic (valve) insufficiency Office Visit 11/06/2018 10:40a [facility] Internal Frances Joseph J84.10 Pulmonary Medicine - Ccm[facility] fibrosis, unspecified F33.9 Major depressive disorder, recurrent, unspecified I50.32 Chronic diastolic (congestive) heart failure I10 Essential (primary) hypertension M10.9 Gout, unspecified N18.3 Chronic kidney disease, stage 3 (moderate) 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 (congestive) heart failure I10 Essential (primary) hypertension R42 Dizziness and giddiness I49.1 Atrial premature depolarization Office Visit 10/06/2018 9:30a [facility] Arnie DgWillow G24.3 Spasmodic Services Of [place] Mora M.D. torticollis H81.10 Benign paroxysmal vertigo, unspecified ear Office Visit 10/01/2018 2:00p [facility] Nurse Visit I10 Essential (primary) cc hypertension Office Visit 09/23/2018 9:30a [facility] Nilam S. I10 Essential ( primary) Foster, N.P. hypertension I49.1 Atrial premature depolarization R06.00 Dyspnea, unspecified R42 Dizziness and giddiness R53.83 Other fatigue Assessments Date Code Description Provider 02/08/2019 G47.33 Obstructive sleep apnea (adult) Nilam Rivera, N.P. (pediatric) 02/08/2019 J84.10 Pulmonary fibrosis, unspecified Nilam Rivera, N.P. 02/08/2019 R42 Dizziness and giddiness Nilam Rivera, N.P. 02/08/2019 I49.1 Atrial premature depolarization Nilam SWillow Rivera, N.P. 02/08/2019 I35.1 Aortic valve regurgitation Nilam Rivera, N.P. 02/08/2019 I10 Essential (primary) hypertension Nilam SWillow Rivera, N.P. 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 12/25/2018 I10 Essential (primary) hypertension David Parikh M.D. 12/25/2018 I10 Essential (primary) hypertension Nurse Visit cc 12/16/2018 J84.10 Pulmonary fibrosis, unspecified Radha Oneil MD 12/16/2018 G47.33 Obstructive sleep apnea (adult) Radha Oneil MD (pediatric) 12/16/2018 R53.83 Other fatigue Radha Oneil MD 12/08/2018 J84.10 Pulmonary fibrosis, unspecified David Parikh M.D. 12/08/2018 G47.33 Obstructive sleep apnea (adult) David Parikh M.D. (pediatric) 12/08/2018 I10 Essential (primary) hypertension David Parikh M.D. 12/08/2018 R42 Dizziness and giddiness David Parikh M.D. 12/08/2018 I49.1 Atrial premature depolarization David Parikh M.D. 12/08/2018 I35.1 Aortic valve regurgitation David Parikh M.D. 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 failure 10/16/2018 I10 Essential (primary) hypertension Nilam Rivera, N.P. 10/16/2018 R42 Dizziness and giddiness Nilam Rivera, N.P. 10/16/2018 I49.1 Atrial premature depolarization Nilam Rivera, N.P. 10/08/2018 R53.83 Other fatigue David Parikh M.D. 10/08/2018 R53.83 Other fatigue [facility] ECHO Schedule 10/08/2018 I50.32 Chronic diastolic (congestive) heart [facility] ECHO Schedule failure 10/08/2018 I10 Essential (primary) hypertension David Parikh M.D. 10/08/2018 I10 Essential (primary) hypertension [facility]ca ECHO Schedule 10/07/2018 R42 Dizziness and giddiness David Parikh M.D. 10/06/2018 R42 Dizziness and giddiness David Parikh M.D. 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 10/06/2018 H81.10 Benign paroxysmal vertigo, unspecified ear Arnie Mora M.D. 10/01/2018 I10 Essential (primary) hypertension David Parikh M.D. 10/01/2018 I10 Essential (primary) hypertension Nurse Visit cc 09/23/2018 I49.1 Atrial premature depolarization David Parikh M.D. 09/23/2018 I10 Essential (primary) hypertension Nilam Rivera, N.P. 09/23/2018 R94.31 Abnormal electrocardiogram [ECG] [EKG] David Parikh M.D. 09/23/2018 I49.1 Atrial premature depolarization Nilam Rivera, N.P. 09/23/2018 R06.00 Dyspnea, unspecified Nilam Rivera, N.P. 09/23/2018 R42 Dizziness and giddiness Nilam Rivera, N.P. 09/23/2018 R53.83 Other fatigue Nilam Rivera, N.P. Plan of Treatment Future Appointment(s):02/22/2019 9:00 am - Arabella Finnegan NP at [facility]07/20/2019 10:00 am - Arnie Mora M.D. at [facility]05/10/2019 2:00 pm - Frances Joseph MD at [facility] Internal Medicine - [facility]04/13/2019 11:30 am - Arnie Mora M.D. at [facility]02/08/2019 - Nilam Rivera, N.P.G47.33 Obstructive sleep apnea (adult) (pediatric)J84.10 Pulmonary fibrosis, [id number] Dizziness and qhguxczlgP33.1 Atrial premature sjvtmzmctlrpivY59.1 Aortic valve pytrvnpqksylhO45 Essential (primary) hypertensionRecommendations:Continue to take BPs. 2hrs after taking medications after resting for 5-10 min IF top number is consistently > 145 let us know. WE could increase amlodipine. Functional Status Description No Information Available Mental Status Description No Information Available Referrals Description No Information Available
--- OUTSIDE RECORDS SUMMARY | 2019-03-30 16:21 | XMS REPORT | Continuity of Care Document ---
:1935 External Reference #:[id number] Author Name Nilam Rivera N.P. (transmitted by agent of provider Ninfa Wood) Address [address] [place] [address] Care Team Providers Name Role Phone Matt Greco MD - Pulmonary Disease Care Team Information Personnel Arbitrator [phone] Radha Oneil MD - Pulmonary Care Team Information Personnel Arbitrator [phone] Disease Matt Ordonez MD - Nephrology Care Team Information Personnel Arbitrator Matt Birch MD - Care Team Information Personnel Arbitrator [phone] Otolaryngology Frances Joseph MD - Internal Medicine Care Team Information Personnel Arbitrator Problems Active Problems Provider Date Essential hypertension Alex Lobo M.D.,FACP Onset: 03/05/2018 Chronic kidney disease stage 3 Alex Lobo M.D.,FACP Onset: 07/14/2017 Diffuse interstitial pulmonary Alex Lobo M.D.,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 Chronic diastolic heart failure [place] [facility] Schedule Onset: 03/10/2013 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 Alin Milligan MD Onset: 02/27/2018 Stress fracture of metatarsal bone Alin Milligan MD Onset: 03/05/2019 Social History Type Date Description Comments Sex Unknown Tobacco Use Start: Unknown Never Smoked Cigarettes ETOH Use Rarely consumes alcohol Patient states he may consume alcohol once a week Recreational Drug Use Denies Drug Use Tobacco Use Start: Unknown Patient has never smoked Smoking Status Reviewed: 03/30/19 Patient has never smoked Exercise Type/Frequency Exercises sporadically Allergies, Adverse Reactions, Alerts Active Allergies Reaction Severity Comments Date Levofloxacin achilles pain 11/18/2016 Inactive Allergies NKDA 04/29/2007 Medications Active Medications SIG Qnty Indications Ordering Date Provider Amlodipine Besylate 1 by mouth every 90tabs I10 Nilam Rivera, 03/30/2019 day N.P. 5mg Tablets Vitamin D3 Super Take one capsule [...] every 180tabs Alex Jeffries 100mg day Berna Lobo,FACP Tablets Aspirin Ec Low Dose 1 by mouth every Unknown day 81mg Tablets DR History Medications Amlodipine Besylate 2 by mouth every 180tabs David Rossi 12/08/2018 - day Berna Parikh 03/30/2019 2.5mg Tablets Amoxicillin/Clavulana take one tablet 20tabs Unknown 12/07/2018 - te Potassium q12 hours for 10 12/24/2018 875-125mg days Tablets Cartia XT 1 by mouth every 90caps Nilam Rivera, 10/01/2018 - 120mg Caps ER day N.P. 10/01/2018 24HR Amlodipine Besylate 1 by mouth every 90tabs Nilam Rivera, 10/01/2018 - 5mg day N.P. 12/08/2018 Tablets Medications Administered in Office Medication SIG Qnty Indications Ordering Provider Date Injection Onabotulinumtoxin Arnie Hill M.D. 01/06/2019 1 Unit Injection Injection Onabotulinumtoxin Arnie Hill M.D. 10/06/2018 1 Unit Injection Injection DuarteabotulinumArnie Almendarez M.D. 06/02/2018 1 Unit Injection Injection Duarteabotulinummckayxin Arnie Hill M.D. 06/02/2018 1 Unit Injection Injection Onabotulinumtoxin Arnie Hill M.D. 02/11/2018 1 Unit Injection Triamcinolone (Kenalog) Alin Milligan MD 11/11/2017 Injection Injection Onabotulinumtoxin Arnie Hill M.D. 10/14/2017 1 Unit Injection Injection DuarteabotulinumArnie Almendarez M.D. 07/09/2017 1 Unit Injection Injection SalvadorotulinumArnie Almendarez M.D. 02/18/2017 1 Unit Injection Injection Duarteabotulinummckayxin Anrie Hill M.D. 02/18/2017 1 Unit Injection Injection Onabotulinumtoxin A, Arnie Mora M.D. 11/04/2016 1 Unit Injection Injection Onabotulinumtoxin A, Arnie Mora M.D. 11/04/2016 1 Unit Injection Injection Onabotulinumtoxin Sergio, Arnie Mora M.D. 05/14/2016 1 Unit Injection Injection Onabotulinumtoxin Sergio, Arnie Mora M.D. 05/14/2016 1 Unit Injection Injection Onabotulinumtoxin A, Arnie Mora M.D. 01/23/2016 1 Unit Injection Injection Onabotulinumtoxin A, Arnie Mora M.D. 01/23/2016 1 Unit Injection Injection Onabotulinumtoxin A, Arnie Mora M.D. 10/03/2015 1 Unit Injection Injection Onabotulinumtoxin A, Arnie Mora M.D. 06/07/2015 1 Unit Injection Injection Onabotulinumtoxin A, Arnie Mora M.D. 03/07/2015 1 Unit Injection Injection Onabotulinumtoxin Arnie Hill M.D. 10/25/2014 1 Unit Injection Injection Onabotulinumtoxin Sergio, Arnie Mora M.D. 07/27/2014 1 Unit Injection Injection Onabotulinumtoxin Sergio, Arnie Mora M.D. 04/26/2014 1 Unit Injection Injection Onabotulinumtoxin A, Arnie Mora M.D. 01/21/2014 1 Unit Injection Injection Onabotulinumtoxin Sergio, Arnie Mora M.D. 01/21/2014 1 Unit Injection Injection Onabotulinumtoxin Sergio, Arnie Mora M.D. 10/22/2013 1 Unit Injection Injection Onabotulinumtoxin Sergio, Arnie Mora M.D. 10/22/2013 1 Unit Injection Injection Onabotulinumtoxin Sergio, Arnie Mora M.D. 04/21/2013 1 Unit Injection Injection Onabotulinumtoxin A, Arnie Mora M.D. 04/21/2013 1 Unit Injection Injection Onabotulinumtoxin Arnie Hill M.D. 01/13/2013 1 Unit Injection Injection Onabotulinumtoxin Arnie Hill M.D. 01/13/2013 1 Unit Injection Injection Onabotulinumtoxin Arnie Hill M.D. 10/02/2012 1 Unit Injection Injection Onabotulinumtoxin Arnie Hill M.D. 10/02/2012 1 Unit Injection Injection Onabotulinumtoxin Arnie Hill M.D. 05/19/2012 1 Unit Injection Injection Onabotulinumtoxin Arnie Hill M.D. 05/19/2012 1 Unit Injection Injection Onabotulinumtoxin Arnie Hill M.D. 02/10/2012 1 Unit Injection Immunizations CPT Code Status Date Vaccine Lot # [id number] Given 04/26/2018 Influenza Virus Vaccine, Quadrivalent, Split, Preservative Free 93686 Given 04/26/2018 Pneumococcal Conjugate Vaccine 13 Valent For Intramuscular Use 64982 Given 03/26/2017 Influenza Virus Vaccine, Quadrivalent, Split, [id number] Preservative Free 14241 Given 04/12/2016 Influ Virus Vaccine, Quadrivalent, Split Virus, [id number] [address] Given 04/12/2015 Influenza Virus Vaccine, Quadrivalent, Split, [id number] Preservative Free 85811 Given 04/01/2014 Influenza Virus Vaccine, Quadrivalent, Split, [id number] Preservative Free 71060 Given 04/01/2014 Pneumococcal Conjugate Vaccine 13 Valent For Intramuscular Use 02715 Given 04/01/2014 Pneumococcal Conjugate Vaccine 13 Valent For [id number] Intramuscular Use 81730 Given 04/30/2013 Flu Vaccine Split Virus Preservative Free For [id number] Indiv 3Yr Older 18239 Given 03/24/2012 Tdap - Tetanus/Diptheria/Acellular Pertussis [id number] Q2038 Given 03/24/2012 Fluzone Vaccine [id number] Q2038 Given 04/12/2011 Fluzone Vaccine [id number] 20817 Given 05/09/2010 Pneumonia Vaccine 50643 Given 04/08/2010 Influenza Virus 3Yrs & Over 72297 Given 07/18/2008 Zoster (Zostavax) 82942 Given 07/18/2008 Zoster (Zostavax) 13997 Given 07/18/2008 Zoster (Zostavax) [id number] 69826 Given 05/14/2007 Influenza Virus 3Yrs & Over 00620 Given 05/14/2007 Influenza Virus 3Yrs & Over 55125 Given 05/14/2007 Influenza Virus 3Yrs & Over [id number] Vital Signs Date Vital Result Comment 03/30/2019 2:19pm Height 69.25 inches 5'9.25" Weight 207.38 lb with shoes Heart Rate 80 /min BP Systolic 150 mmHg LA, reg (later check) BP Diastolic 72 mmHg LA, reg (later check) BP Systolic Sitting 160 mmHg LA, reg BP Diastolic Sitting 78 mmHg LA, reg BMI (Body Mass Index) 30.4 kg/m2 Ejection Fraction 60-65% Echocardiogram 10/08/2018 03/30/2019 11:16am Height 69.25 inches 5'9.25" Weight 208.00 lb with shoes Heart Rate 73 /min BP Systolic Sitting 145 mmHg L arm BP Diastolic Sitting 75 mmHg L arm O2 % BldC Oximetry 95 % BMI (Body Mass Index) 30.5 kg/m2 Results Test Date Facility Test Result H/L Range Note Neph Routine 03/30/2019 [facility] Total Protein <pending> [address] [place] [address] [phone] Creatinine Random Urine <pending> Urinalysis Profile 03/30/2019 [facility] Urine Color Yellow [address] [place] [address] [phone] Urine Appearance Clear Urine Specific [place] 1.013 Normal 1.010-1.030 Urine pH 5.0 Normal 5-9 Urine Urobilinogen Negative Negative Urine Ketones Negative Negative Urine Protein 2+(100 mg/dL) Abnormal Negative Urine Leukocytes Negative Negative Urine Blood 2+ Abnormal Negative Urine Nitrite Negative Negative Urine Bilirubin Negative Negative Urine Glucose 1+(50 mg/dL) Abnormal Negative Urine White Blood Cell Trace(0-5/hpf) Absent Urine Red Blood Cell 3+(>10/hpf) Abnormal Absent Urine Bacteria Absent Absent Basic Metabolic 03/30/2019 [facility] Sodium 143 mmol/L Normal 135-[address] [place] [address] [phone] Co2 Carbon Dioxide 27 mmol/L Normal 22-32 Glucose 72 mg/dL Normal 70-100 Blood Urea Nitrogen 52 mg/dL High 6-24 Creatinine 3.57 mg/dL High 0.67-1.17 BUN/Creatinine Ratio 14.6 Normal 8-20 Egfr Non- 16.5 >60 Egfr 19.9 >60 1 Potassium 5.9 mmol/L High 3.5-5.0 Chloride 112 mmol/L High 101-111 Anion Gap 4 mmol/L Normal 2-11 Laboratory test 03/30/2019 [facility] Calcium 8.2 mg/dL Low 8.6-10.[address] [place] [address] [phone] GN Serology 03/30/2019 [facility] Anti Double <pending> [place] [address] AB [phone] Complement C3 <pending> Complement C4 <pending> Glomerular Basement Membrane <pending> Neutrophil Cytoplasmic AB <pending> Anti Nuclear Antibody <pending> Myeloperoxidase AB <pending> Proteinase 3 <pending> Hepatitis B Surface Ag <pending> Hepatitis C Antibody <pending> Hepatitis B Core AB Total <pending> Histone Antibody <pending> Rheumatoid Factor < 10 IU/mL Normal <15 Erythrocyte Sed Rate <pending> C Reactive Protein 5.70 mg/L Normal <8.01 Cryoglobulin & Cryofibrinogen <pending> Hepatitis B April AB Titer <pending> Miscellaneous Test <pending> Laboratory test 03/30/2019 [facility] Hemoglobin A1c 5.7 % High 4.0-5.[address] (Glyco HGB) [place] [address] [phone] CBC Auto Diff 03/27/2019 [facility] White Blood 7.2 Normal 3.5 -10.[address] Count 10^3/[place] [address] [phone] Red Blood Count 3.81 10^6/uL Low 4.18-5.48 Hemoglobin 11.8 g/dL Low 14.0-18.0 Hematocrit 36 % Low 42-52 Mean Corpuscular Volume 95 fL High 80-94 Mean Corpuscular Hemoglobin 31 pg Normal 27-31 Mean Corpuscular HGB Conc 33 g/dL Normal 31-36 Red Cell Distribution Width 15 % Normal 10-15 Platelet Count 182 10^3/uL Normal 150-450 Mean Platelet Volume 10.1 fL Normal 7.4-10.4 Abs Neutrophils 5.1 10^3/uL Normal 1.5-7.7 Abs Lymphocytes 1.0 10^3/uL Normal 1.0-4.8 Abs Monocytes 0.7 10^3/uL Normal 0-0.8 Abs Eosinophils 0.3 10^3/uL Normal 0-0.6 Abs Basophils 0.0 10^3/uL Normal 0-0.2 Abs Nucleated RBC 0.0 10^3/uL Granulocyte % 70.9 % Lymphocyte % 14.2 % Monocyte % 9.9 % Eosinophil % 4.6 % Basophil % 0.4 % Nucleated Red Blood Cells % 0.0 Laboratory test 03/27/2019 [facility] Ferritin 216.6 ng/mL Normal 24-336 finding [address] [place] [address] [phone] Iron & Iron 03/27/2019 [facility] Iron 75 g/dL Normal 50- 212 Binding Capacity [address] [place] [address] [phone] Unsaturated Iron Binding < 266 g/dL Total Iron Binding Capacity 281 g/dL Normal 250-450 Transferrin 201 mg/dL Low 203-362 % Iron Saturation 27 % Normal 15-55 Laboratory test 03/27/2019 [facility] Phosphorus 5.1 mg/dL High 2.5-5.0 finding [address] [place] [address] [phone] Magnesium 1.8 mg/dL Low 1.9-2.7 Comp Metabolic 03/27/2019 [facility] Sodium 143 mmol/L Normal 135-145 Panel [address] [place] [address] [phone] Chloride 110 mmol/L Normal 101-111 Co2 Carbon Dioxide 27 mmol/L Normal 22-32 Glucose 69 mg/dL Low 70-100 Blood Urea Nitrogen 57 mg/dL High 6-24 Creatinine 3.45 mg/dL High 0.67-1.17 One Over Creatinine 0.28 BUN/Creatinine Ratio 16.5 Normal 8-20 Calcium 8.5 mg/dL Low 8.6-10.3 Total Protein 6.3 g/dL Low 6.4-8.9 Albumin 3.7 g/dL Normal 3.2-5.2 Globulin 2.6 g/dL Normal 2-4 Albumin/Globulin Ratio 1.4 Normal 1-3 Total Bilirubin 0.40 mg/dL Normal 0.2-1.0 Alkaline Phosphatase 90 U/L Normal 34-104 Alt 8 U/L Normal 7-52 Ast 14 U/L Normal 13-39 Egfr Non- 17.1 >60 Egfr 20.7 >60 4 Potassium 5.4 mmol/L High 3.5-5.0 Anion Gap 6 mmol/L Normal 2-11 Total Protein 24HR 03/27/2019 [facility] Urine Collection Time 24 hr Urine [address] [place] [address] [phone] Urine Total Volume 1300 mL Urine TP Concentration 223 mg/dL Urine Total Protein/24HR 2899 mg/24Hr High 0-165 Creatinine 03/27/2019 [facility] Urine Creatinine 57.29 mg/dL Clearance [address] [place] [address] [phone] Creatinine, Serum 3.42 mg/dL High 0.51-0.95 Creatinine Clearance 15 mL/min Low 97-137 Urea Nitrogen 03/27/2019 [facility] Urine Collection 24 hr Clearance [address] [place] [address] [phone] Urine Total Volume 1300 mL Ur Urea Nitrogen Concentration 492 mg/dL BUN Serum 57 mg/dL High 6-24 Urea Nitrogen Clearance 8 mL/min Low 59-99 Laboratory test 03/16/2019 [facility] Surgical SEE RESULT [address] [place] [address] [phone] Creatinine 01/29/2019 [facility] Urine Collection 24 hr Clearance [address] [place] [address] [phone] Urine Total Volume 2200 mL Creatinine, Serum 2.91 mg/dL High 0.51-0.95 Urine Creatinine Concentration 39.74 mg/dL Creatinine Clearance 21 mL/min Low 97-137 Total Protein 24HR 01/29/2019 [facility] Urine Collection Time 24 hr Urine [address] [place] [address] [phone] Urine Total Volume 2200 mL Urine TP Concentration 138 mg/dL Urine Total Protein/24HR 3036 mg/24Hr High 0-165 Laboratory test 01/29/2019 [facility] Uric Acid 6.1 mg/dL Normal 4.4-7.[address] [place] [address] [phone] Phosphorus 4.1 mg/dL Normal 2.5-5.0 Magnesium 2.0 mg/dL Normal 1.9-2.7 Liver 01/29/2019 [facility] Direct 0.10 Normal 0.03-0.[address] Bilirubin mg/[place] [address] [phone] Indirect Bilirubin 0.2 mg/dL Low 0.3-1.0 CBC Auto 01/29/2019 [facility] White Blood 7.7 10^3/uL Normal 3.5-10.[address] [place] [address] [phone] Red Blood Count 3.85 10^6/uL Low 4.18-5.48 [...] Blood Cells % 0.0 Comp Metabolic 01/29/2019 [facility] Sodium 143 mmol/L Normal 135-[address] [place] [address] [phone] Potassium 4.6 mmol/L Normal 3.5-5.0 Chloride 109 [...] Egfr Non- 20.7 >60 Egfr 25.0 >60 6 Lipid Profile 01/29/2019 [facility] Triglycerides 114 mg/dL 7 (Trig/Chol/HDL) [address] [place] [address] [phone] Cholesterol 162 mg/dL 8 HDL Cholesterol 46.5 mg/dL 9 LDL Cholesterol 93 mg/dL 10 CBC Auto 01/06/2019 [facility] White Blood 7.4 10^3/uL Normal 3.5-10.[address] [place] [address] [phone] Red Blood Count 3.99 10^6/uL Low 4.18-5.48 [...] Blood Cells % 0.0 Comp Metabolic 01/06/2019 [facility] Sodium 142 mmol/L Normal 135-145 [place] [address] [phone] Potassium 4.8 mmol/L Normal 3.5-5.0 Chloride 108 [...] Egfr Non- 23.2 >60 Egfr 28.1 >60 11 Laboratory test 01/06/2019 [facility] Phosphorus 4.0 mg/dL Normal 2.5-5.[address] [place] [address] [phone] Magnesium 1.8 mg/dL Low 1.9-2.7 Laboratory 12/10/2018 [facility] TSH (Thyroid 2.12 Normal 0.34 -5.[address] Stim Horm) mcIU/mL [place], [place] [id number] [phone] CBC No Diff 12/10/2018 [facility] White Blood 8.6 10^3/uL Normal 3.5-10.8 [place] [address] [phone] Red Blood Count 3.84 10^6/uL Low 4.18-5.48 Hemoglobin 12.0 g/dL Low 14.0-18.0 Hematocrit 37 % Low 42-52 Mean Corpuscular Volume 96 fL High 80-94 Mean Corpuscular Hemoglobin 31 pg Normal 27-31 Mean Corpuscular HGB Conc 33 g/dL Normal 31-36 Red Cell Distribution Width 15 % Normal 10-15 Platelet Count 195 10^3/uL Normal 150-450 Mean Platelet Volume 9.6 fL Normal 7.4-10.4 Liver Function 12/10/2018 [facility] Albumin 3.9 g/dL Normal 3.2-5.[address] [place] [address] [phone] Total Bilirubin 0.30 mg/dL Normal 0.2-1.0 Direct Bilirubin 0.10 mg/dL Normal 0.03-0.18 Indirect Bilirubin 0.2 mg/dL Low 0.3-1.0 Total Protein 6.8 g/dL Normal 6.4-8.9 Globulin 2.9 g/dL Normal 2-4 Albumin/Globulin Ratio 1.3 Normal 1-3 Alkaline Phosphatase 81 U/L Normal 34-104 Alt 12 U/L Normal 7-52 Ast 15 U/L Normal 13-39 Creatinine 11/04/2018 [facility] Creatinine, 2.65 High 0.51- 0.95 [address] Serum mg/[place] [address] [phone] Urine Collection Time 24 hr Urine Total Volume 1450 mL Urine Creatinine Concentration 59.56 mg/dL Creatinine Clearance 23 mL/min Low 97-137 Total Protein 24HR 11/04/2018 [facility] Urine Collection Time [address] [place] [address] [phone] Urine Total Volume 1450 mL Urine TP Concentration 176 mg/dL Urine Total Protein/24HR 2552 mg/24Hr High 0-165 Laboratory test 11/04/2018 [facility] Phosphorus 4.0 mg/dL Normal 2.5-5.[address] [place] [address] [phone] Magnesium 2.0 mg/dL Normal 1.9-2.7 Comp Metabolic 11/04/2018 [facility] Sodium 144 mmol/L Normal 135-145 Panel [address] [place] [address] [phone] Potassium 5.0 mmol/L Normal 3.5-5.0 Chloride 109 [...] Egfr Non- 24.0 >60 Egfr 29.0 >60 13 Basic Metabolic 10/22/2018 [facility] Sodium 144 mmol/L Normal 135-145 Panel [address] [place] [address] [phone] Potassium 5.0 mmol/L Normal 3.5-5.0 Chloride 110 mmol/L Normal 101-111 Co2 Carbon Dioxide 27 mmol/L Normal 22-32 Anion Gap 7 mmol/L Normal 2-11 Glucose 70 mg/dL Normal 70-100 Blood Urea Nitrogen 51 mg/dL High 6-24 Creatinine 2.42 mg/dL High 0.67-1.17 BUN/Creatinine Ratio 21.1 High 8-20 Calcium 8.8 mg/dL Normal 8.6-10.3 Egfr Non- 25.8 >60 Egfr 31.2 >60 14 Laboratory test 10/20/2018 [facility] Thyroxine 5.65 g/dL Low 6.09-12.23 finding [address] [place] [address] [phone] TSH (Thyroid Stim Horm) 2.37 mcIU/mL Normal 0.34-5.60 Free T4 (Free Thyroxine) 0.68 ng/dL Normal 0.61-1.12 Vitamin D Total 25(Oh) 25.1 ng/mL Normal 20-50 15 Thyroid Panel 10/16/2018 [facility] Free T4 (Free <pending> [address] Thyroxine) [place] [address] [phone] Thyroxine <pending> TSH (Thyroid Stim Horm) <pending> Laboratory test 10/16/2018 [facility] Vitamin D Total <pending> finding [address] 25(Oh) [place] [address] [phone] 1 Because ethnic data is not always [...] 5 Kidney failure <15 (or dialysis) 2 Therapeutic target for the treatment of diabetes mellitus patients is <7% HBA1C, and in selective patients <6.0%. Please refer to [place] [employer] diabetic care guidelines for further information. 3 URINE COLLECTED FROM 03/26 0845 THROUGH 03/27 0900 4 Because ethnic data is not always readily [...] 15-29 5 Kidney failure <15 (or dialysis) 5 SEE RESULT BELOW Name: DA GARCIA : [address]: Bhavesh Flaherty MD Acct: [id number] Unit: [id number] AGE: 83 Location: OR Re03/16/19 SEX: M Status: REG [facility] [place] SPEC: [id number] KARLA: 03/16/19 [facility] DR: Bhavesh Flaherty MD REQ: [id number] RECD: 03/16/19 STATUS: SHONDA WARD DR: Manda Joseph MD _ ORDERED: LEVEL 4 FINAL DIAGNOSIS Skin, left medial trapezial neck, wide excision: -- Skin and subcutaneous tissues with prior surgical site related changes. -- No residual melanocytic neoplasia identified. 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 There is a suture attached to one short axis which designates the 12:00 superior short axis margin. The specimen is inked as follows: 12:00 half black, 6:00 half blue and 3:00 tip green, serially sectioned from 3:00 to 9:00 and real estate representative sections are submitted in cassettes A through R to include ellipse ends in cassette A and scar in its entirety in cassettes B through R. Signed by and Reported on: Kevon Castro MD 1228 END OF REPORT DEPARTMENT OF PATHOLOGY, [address] [place] [address] Kevon Castro M.D. Director [facility] # [id number] 6 Because ethnic data is not always [...] 5 Kidney failure <15 (or dialysis) 7 Desirable: <150 Borderline High: 150-199 High: 200-499 Very High: >500 8 Desirable: <200 Borderline High: 200-239 High: >239 9 Low: <40 Desirable: 40-60 High: >60 10 Desirable: <100 Near Optimal: 100-129 Borderline High: 130-159 High: 160-189 Very High: >189 11 Because ethnic data is not always [...] 5 Kidney failure <15 (or dialysis) 12 URINE COLLECTED FROM 11/03 1100 THROUGH 11/04 1145 13 Because ethnic data is not always [...] 5 Kidney failure <15 (or dialysis) 14 Because ethnic data is not always readily [...] 15-29 5 Kidney failure <15 (or dialysis) 15 Total 25-Hydroxyvitamin D2 and D3 (25-OH-VitD) <10 ng/mL (severe deficiency) 10-19 ng/mL (mild to moderate deficiency) 20-50 ng/mL (optimum levels) 51-80 ng/mL (increased risk of hypercalciuria) >80 ng/mL (toxicity possible) Procedures Date Code Description Status 03/30/2019 43321 EKG Tracing & Interpretation Completed 03/23/2019 23176 EKG Tracing & Interpretation Completed 01/06/2019 56862 Chemodenervation Of Neck Muscles Excluding Larynx, Completed Unilateral 12/08/2018 67374 EKG Tracing & Interpretation Completed 11/18/2018 08130 Sleep Study Unattended,HRT Rate,Oxygen Sat,Resp Completed Effort/Airflow 11/18/2018 36278 Sleep Study Unattended,HRT Rate,Oxygen Sat,Resp Completed Effort/Airflow 11/18/2018 25335 Diffusing Capacity Completed 11/18/2018 44309 Spirometry Incl Graphic Record Completed 10/08/2018 01539 ECHO Transthoracic, Real-Time 2D With Doppler And Completed Color Flow 10/08/2018 08225 ECHO Transthoracic, Real-Time 2D With Doppler And Completed Color Flow 10/07/2018 50564 Holter Monitor Review (24 hr)dr review & interp only Completed 10/06/2018 35533 ECG Monitor/Recording W/Visual Superimposition Completed Scanning 10/06/2018 53541 ECG Monitor/Recording W/Visual Superimposition Completed Scanning 10/06/2018 77943 Chemodenervation Of Neck Muscles Excluding Larynx, Completed Unilateral 12/10/2016 [id number] Diabetic Retinal Eye Exam Completed 07/07/2014 [id number] Diabetic Retinal Eye Exam Completed 02/02/2014 [id number] Diabetic Retinal Eye Exam Completed 04/30/2012 [id number] Colonoscopy Completed 02/14/2011 [id number] Diabetic Retinal Eye Exam Completed 03/30/2008 [id number] Colonoscopy Completed 01/28/2008 [id number] Mammogram Completed Medical Devices Description No Information Available Encounters Type Date Location Provider Dx Diagnosis Office Visit 03/23/2019 [facility] David Rossi R42 Dizziness and 9:15a Berna Parikh giddiness G47.33 Obstructive sleep apnea (adult) (pediatric) J84.10 Pulmonary fibrosis, unspecified I10 Essential (primary) hypertension R01.1 Cardiac murmur, unspecified R94.31 Abnormal electrocardiogram [ECG] [EKG] Office Visit 03/05/2019 [facility] Melia [id number] Stress fracture, 11:15a Orthopedics at [facility] [place] initial encounter for fracture Office Visit 02/22/2019 [facility] G47.33 Obstructive 9:00a [facility] sleep apnea [facility] (adult) (pediatric) J84.10 Pulmonary fibrosis, unspecified Office Visit 02/08/2019 10:30a [facility] Nilam Diaz G47.33 Obstructive sleep [facility] apnea (adult) (pediatric) J84.10 Pulmonary fibrosis, unspecified R42 Dizziness and giddiness I49.1 Atrial premature depolarization I35.1 Nonrheumatic aortic (valve) insufficiency I10 Essential (primary) hypertension Office Visit 01/20/2019 8:15a Pulmonology And Radha G47.33 Obstructive sleep Sleep Services Of [facility] Clarice apnea (adult) [facility] (pediatric) J84.10 Pulmonary fibrosis, unspecified Office Visit 12/25/2018 1:00p [facility] Nurse Visit I10 Essential cc (primary) hypertension Office Visit 12/16/2018 10:30a Pulmonology And Radha J84.10 Pulmonary [facility] Clarice fibrosis, [facility] unspecified G47.33 Obstructive sleep apnea (adult) (pediatric) R53.83 Other fatigue Office Visit 12/08/2018 10:20a [facility] David Rossi J84.10 Pulmonary Gabe Parikh. fibrosis, unspecified G47.33 Obstructive sleep apnea (adult) (pediatric) I10 Essential (primary) hypertension R42 Dizziness and giddiness I49.1 Atrial premature depolarization I35.1 Nonrheumatic aortic (valve) insufficiency Office Visit 11/06/2018 10:40a [facility] Internal Frances Jake, J84.10 [facility], unspecified F33.9 Major depressive disorder, recurrent, unspecified I50.32 Chronic diastolic (congestive) heart failure I10 Essential (primary) hypertension M10.9 Gout, unspecified N18.3 Chronic kidney disease, stage 3 (moderate) 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 Office Visit 10/16/2018 11:30a [facility] Nilam Diaz I50.32 Chronic diastolic Of [facility] Miguel N.PWillow (congestive) heart failure I10 Essential (primary) hypertension R42 Dizziness and giddiness I49.1 Atrial premature depolarization Office Visit 10/06/2018 9:30a [facility] Arnie Diaz G24.3 Spasmodic Services Of [facility] Berna Mora torticollis H81.10 Benign paroxysmal vertigo, unspecified ear Office Visit 10/01/2018 2:00p [facility] Nurse Visit I10 Essential (primary) cc hypertension Assessments Date Code Description Provider 03/30/2019 I10 Essential (primary) hypertension Nilam Rivera N.P. 03/30/2019 N18.4 Chronic kidney disease, stage 4 (severe) Ruth Hooper MD 03/30/2019 R01.1 Heart murmur Nilam Rivera N.P. 03/30/2019 I10 Essential (primary) hypertension Ruth Hooper MD 03/30/2019 R94.31 Abnormal electrocardiogram [ECG] [EKG] Nilam Rivera N.P. 03/30/2019 G47.33 Obstructive sleep apnea (adult) Ruth Hooper MD (pediatric) 03/30/2019 I49.1 Atrial premature depolarization Nilam Rivera N.P. 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 03/23/2019 G47.33 Obstructive sleep apnea (adult) David Parikh M.D. (pediatric) 03/23/2019 J84.10 Pulmonary fibrosis, unspecified David F. Mauser, M.D. 03/23/2019 I10 Essential (primary) hypertension David Parikh M.D. 03/23/2019 R01.1 Heart murmur David Parikh M.D. 03/23/2019 R94.31 Abnormal electrocardiogram [ECG] [EKG] David Parikh M.D. 03/05/2019 M84.374A Stress fracture, right foot, initial Alin Milligan MD encounter for fracture 02/22/2019 G47.33 Obstructive sleep apnea (adult) Arabella Finnegan NP (pediatric) 02/22/2019 J84.10 Pulmonary fibrosis, unspecified Arabella Finnegan NP 02/08/2019 G47.33 Obstructive sleep apnea (adult) Nilam Rivera, N.P. (pediatric) 02/08/2019 J84.10 Pulmonary fibrosis, unspecified Nilam Rivera, N.P. 02/08/2019 R42 Dizziness and giddiness Nilam Rivera, N.P. 02/08/2019 I49.1 Atrial premature depolarization Nilam Rivera, N.P. 02/08/2019 I35.1 Aortic valve regurgitation Nilam Rivera, N.P. 02/08/2019 I10 Essential (primary) hypertension Nilam Rivera, N.P. 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 10/06/2018 H81.10 Benign paroxysmal vertigo, unspecified Arnie Mora M.D. ear 10/01/2018 I10 Essential (primary) hypertension David Parikh M.D. 10/01/2018 I10 Essential (primary) hypertension Nurse Visit cc Plan of Treatment Future Appointment(s):04/13/2019 2:15 pm - [place] [facility] Schedule at [facility]04/07/2019 10:30 am - Ruth Hooper MD at [facility] Qjbvptvqgn38/17/ 2019 9:00 am - David Parikh M.D. at [facility]07/20/2019 10:00 am - Arnie Mora M.D. at [facility]05/10/2019 2: 00 pm - Frances Joseph MD at [facility] Internal Medicine - [facility]04/13/2019 11:30 am - Arnie Mora M.D. at [facility]03/30/2019 - Nilam Rivera, N.P.I10 Essential (primary) hypertensionNew Medication:Amlodipine Besylate 5 mg - 1 by mouth every dayFollow up:05/2020 as scheduled. JFMR01.1 Heart murmurNew Orders:Echocardiogram, Scheduled: 04/13/19R94.31 Abnormal electrocardiogram [ECG] [EKG]I49.1 Atrial premature depolarization Functional Status Description No Information Available Mental Status Description No Information Available Referrals Description No Information Available
--- OUTSIDE RECORDS SUMMARY | 2019-03-30 16:21 | XMS REPORT | Continuity of Care Document ---
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 Helper Problems Active Problems Provider Date Essential hypertension Alex Lobo M.D.,FACP Onset: 03/05/2018 Chronic kidney disease stage 3 Alex Lobo M.D.,FACP Onset: 07/14/2017 Diffuse interstitial pulmonary Alex Lobo M.D.,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 Chronic diastolic heart failure [place] [facility] Schedule Onset: 03/10/2013 Overlapping malignant melanoma [...] Patient has never smoked Smoking Status Reviewed: 03/05/19 Patient has never smoked Exercise Type/Frequency Exercises sporadically Allergies, Adverse Reactions, Alerts Active Allergies Reaction Severity Comments Date Levofloxacin achilles pain 11/18/2016 Inactive Allergies NKDA 04/29/2007 Medications Active Medications SIG Qnty Indications Ordering Date Provider Amlodipine Besylate 1 by mouth every 30tabs David Rossi 12/08/2018 day Berna Parikh 2.5mg Tablets Vitamin D3 Super Take one [...] Jeffries 100mg day Berna Lobo,FACP Tablets Aspirin 81 1 by mouth every Unknown 81mg day Tablets DR History Medications Amoxicillin/Clavulanate take one 20tabs Unknown 12/07/2018 [...] Hill M.D. 01/06/2019 1 Unit Injection Injection Duarteabotulinummckayxin Arnie Hill M.D. 10/06/2018 1 Unit Injection Injection Salvadorotulinummckayxin Arnie Hill M.D. 06/02/2018 1 Unit Injection Injection Duarteabotulinummckayxin Arnie Hill M.D. 06/02/2018 1 Unit Injection Injection Onabotulinumtoxin Arnie Hill M.D. 02/11/2018 1 Unit Injection Triamcinolone (Kenalog) Alin Milligan MD 11/11/2017 Injection Injection SalvadorotulinumArnie Almendarez M.D. 10/14/2017 1 Unit Injection Injection SalvadorotulinumArnie Almendarez M.D. 07/09/2017 1 Unit Injection Injection SalvadorotulinumArnie Almendarez M.D. 02/18/2017 1 Unit Injection Injection SalvadorotulinumArnie Almendarez M.D. 02/18/2017 1 Unit Injection Injection DuarteabotulinumArnie Almendarez M.D. 11/04/2016 1 Unit Injection Injection SalvadorotulinumArnie Almendarez M.D. 11/04/2016 1 Unit Injection Injection Onabotulinumtoxin A, Arnie Mora M.D. 05/14/2016 1 Unit Injection Injection Onabotulinumtoxin A, Arnie Mora M.D. 05/14/2016 1 Unit Injection Injection Onabotulinumtoxin Sergio, Arnie Mora M.D. 01/23/2016 1 Unit Injection Injection Onabotulinumtoxin A, Arnie Mora M.D. 01/23/2016 1 Unit Injection Injection Onabotulinumtoxin A, Arnie Mora M.D. 10/03/2015 1 Unit Injection Injection Onabotulinumtoxin A, Arnie Mora M.D. 06/07/2015 1 Unit Injection Injection Onabotulinumtoxin Sergio, Arnie Mora M.D. 03/07/2015 1 Unit Injection Injection Onabotulinumtoxin A, Arnie Mora M.D. 10/25/2014 1 Unit Injection Injection Onabotulinumtoxin A, Arnie Mora M.D. 07/27/2014 1 Unit Injection Injection Onabotulinumtoxin Sergio, Arnie Mora M.D. 04/26/2014 1 Unit Injection Injection Onabotulinumtoxin Sergio, Arnie Mora M.D. 01/21/2014 1 Unit Injection Injection Onabotulinumtoxin Arnie Hill M.D. 01/21/2014 1 Unit Injection Injection Onabotulinumtoxin Sergio, Arnie Mora M.D. 10/22/2013 1 Unit Injection Injection Onabotulinumtoxin Sergio, Arnie Mora M.D. 10/22/2013 1 Unit Injection Injection Onabotulinumtoxin Sergio, Arnie Mora M.D. 04/21/2013 1 Unit Injection Injection Onabotulinumtoxin Sergio, Arnie Mora M.D. 04/21/2013 1 Unit Injection Injection Onabotulinumtoxin Sergio, Arnie Mora M.D. 01/13/2013 1 Unit Injection Injection Onabotulinumtoxin Sergio, Arnie [...] CPT Code Status Date Vaccine Lot # [id number] Given 04/26/2018 Influenza Virus Vaccine, Quadrivalent, Split, Preservative Free 05233 Given 04/26/2018 Pneumococcal Conjugate Vaccine 13 Valent For Intramuscular Use 07574 Given 03/26/2017 Influenza Virus Vaccine, Quadrivalent, Split, [id number] Preservative Free 12310 Given 04/12/2016 Influ Virus Vaccine, Quadrivalent, Split Virus, [place] [id number] [address] Given 04/12/2015 Influenza Virus Vaccine, Quadrivalent, Split, [id number] Preservative Free 42408 Given 04/01/2014 Influenza Virus Vaccine, Quadrivalent, Split, [id number] Preservative Free 89684 Given 04/01/2014 Pneumococcal Conjugate Vaccine 13 Valent For Intramuscular Use 68720 Given 04/01/2014 Pneumococcal Conjugate Vaccine 13 Valent For [id number] Intramuscular Use 02369 Given 04/30/2013 Flu Vaccine Split Virus Preservative Free For [id number] Indiv 3Yr Older 34865 Given 03/24/2012 Tdap - Tetanus/Diptheria/Acellular Pertussis [id number] Q2038 Given 03/24/2012 Fluzone Vaccine [id number] Q2038 Given 04/12/2011 Fluzone Vaccine [id number] 00210 Given 05/09/2010 Pneumonia Vaccine 59589 Given 04/08/2010 Influenza Virus 3Yrs & Over 22319 Given 07/18/2008 Zoster (Zostavax) 69789 Given 07/18/2008 Zoster (Zostavax) 52370 Given 07/18/2008 Zoster (Zostavax) [id number] 04514 Given 05/14/2007 Influenza Virus 3Yrs & Over 06306 Given 05/14/2007 Influenza Virus 3Yrs & Over 07697 Given 05/14/2007 Influenza Virus 3Yrs & Over [id number] Vital Signs Date Vital Result Comment 03/05/2019 11:31am Height 69.25 inches 5'9.25" Weight 204.00 lb Heart Rate 70 /min BP Systolic 154 mmHg BP Diastolic 90 mmHg Respiratory Rate 14 /min Pain Level 8 BMI (Body Mass Index) 29.9 kg/m2 02/22/2019 9:02am Height 69.25 inches 5'9.25" Weight 207.00 lb Heart Rate 74 /min BP Systolic Sitting 136 mmHg Lue regular cuff BP Diastolic Sitting 78 mmHg Lue regular cuff Respiratory Rate 12 /min O2 % BldC Oximetry 97 % BMI (Body Mass Index) 30.3 kg/m2 Results Test Date Facility Test Result H/L Range Note CBC Auto 01/29/2019 [facility] White Blood 7.7 10^3/uL Normal 3.5-10.[address] [place] [address] [phone] Red Blood Count 3.85 10^6/uL Low 4.18-5.48 [...] Blood Cells % 0.0 Comp Metabolic 01/29/2019 [facility] Sodium 143 mmol/L Normal 135-145 Panel [address] [place] [address] [phone] Potassium 4.6 mmol/L Normal 3.5-5.0 Chloride 109 [...] Egfr 25.0 >60 1 Lipid Profile 01/29/2019 [facility] Triglycerides 114 mg/dL 2 (Trig/Chol/HDL) [address] [place] [address] [phone] Cholesterol 162 mg/dL 3 HDL Cholesterol 46.5 mg/dL 4 LDL Cholesterol 93 mg/dL 5 Liver 01/29/2019 [facility] Direct 0.10 Normal 0.03-0.[address] Bilirubin mg/[place] [address] [phone] Indirect Bilirubin 0.2 mg/dL Low 0.3-1.0 Laboratory test 01/29/2019 [facility] Uric Acid 6.1 mg/dL Normal 4.4-7.6 finding [address] [place] [address] [phone] Phosphorus 4.1 mg/dL Normal 2.5-5.0 Magnesium 2.0 mg/dL Normal 1.9-2.7 Total Protein 24HR 01/29/2019 [facility] Urine Collection Time 24 hr Urine [address] [place] [address] [phone] Urine Total Volume 2200 mL Urine TP Concentration 138 mg/dL Urine Total Protein/24HR 3036 mg/24Hr High 0-165 Creatinine Clearance 01/29/2019 [facility] Urine Collection [address] [place] [address] [phone] Urine Total Volume 2200 mL Creatinine, Serum 2.91 mg/dL High 0.51-0.95 Urine Creatinine Concentration 39.74 mg/dL Creatinine Clearance 21 mL/min Low 97-137 CBC Auto 01/06/2019 [facility] White Blood 7.4 10^3/uL Normal 3.5-10.[address] [place] [address] [phone] Red Blood Count 3.99 10^6/uL Low 4.18-5.48 [...] Blood Cells % 0.0 Comp Metabolic 01/06/2019 [facility] Sodium 142 mmol/L Normal 135-[address] [place] [address] [phone] Potassium 4.8 mmol/L Normal 3.5-5.0 Chloride 108 [...] Egfr 28.1 >60 6 Laboratory test 01/06/2019 [facility] Phosphorus 4.0 mg/dL Normal 2.5-5.[address] [place] [address] [phone] Magnesium 1.8 mg/dL Low 1.9-2.7 Laboratory 12/10/2018 [facility] TSH (Thyroid 2.12 Normal 0.34 -5.[address] Stim Horm) mcIU/[place] [address] [phone] CBC No Diff 12/10/2018 [facility] White Blood 8.6 10^3/uL Normal 3.5-10.8 [place] [address] [phone] Red Blood Count 3.84 10^6/uL Low 4.18-5.48 Hemoglobin 12.0 g/dL Low 14.0-18.0 Hematocrit 37 % Low 42-52 Mean Corpuscular Volume 96 fL High 80-94 Mean Corpuscular Hemoglobin 31 pg Normal 27-31 Mean Corpuscular HGB Conc 33 g/dL Normal 31-36 Red Cell Distribution Width 15 % Normal 10-15 Platelet Count 195 10^3/uL Normal 150-450 Mean Platelet Volume 9.6 fL Normal 7.4-10.4 Liver Function 12/10/2018 [facility] Albumin 3.9 g/dL Normal 3.2-5.[address] [place] [address] [phone] Total Bilirubin 0.30 mg/dL Normal 0.2-1.0 Direct Bilirubin 0.10 mg/dL Normal 0.03-0.18 Indirect Bilirubin 0.2 mg/dL Low 0.3-1.0 Total Protein 6.8 g/dL Normal 6.4-8.9 Globulin 2.9 g/dL Normal 2-4 Albumin/Globulin Ratio 1.3 Normal 1-3 Alkaline Phosphatase 81 U/L Normal 34-104 Alt 12 U/L Normal 7-52 Ast 15 U/L Normal 13-39 Creatinine 11/04/2018 [facility] Creatinine, 2.65 High 0.51- 0.95 [address] Serum mg/[place] [address] [phone] Urine Collection Time 24 hr Urine Total Volume 1450 mL Urine Creatinine Concentration 59.56 mg/dL Creatinine Clearance 23 mL/min Low 97-137 Total Protein 24HR 11/04/2018 [facility] Urine Collection Time [address] [place] [address] [phone] Urine Total Volume 1450 mL Urine TP Concentration 176 mg/dL Urine Total Protein/24HR 2552 mg/24Hr High 0-165 Laboratory test 11/04/2018 [facility] Phosphorus 4.0 mg/dL Normal 2.5-5.[address] [place] [address] [phone] Magnesium 2.0 mg/dL Normal 1.9-2.7 Comp Metabolic 11/04/2018 [facility] Sodium 144 mmol/L Normal 135-[address] [place] [address] [phone] Potassium 5.0 mmol/L Normal 3.5-5.0 Chloride 109 [...] Egfr 29.0 >60 8 Basic Metabolic 10/22/2018 [facility] Sodium 144 mmol/L Normal 135-145 Panel [address] [place] [address] [phone] Potassium 5.0 mmol/L Normal 3.5-5.0 Chloride 110 mmol/L Normal 101-111 Co2 Carbon Dioxide 27 mmol/L Normal 22-32 Anion Gap 7 mmol/L Normal 2-11 Glucose 70 mg/dL Normal 70-100 Blood Urea Nitrogen 51 mg/dL High 6-24 Creatinine 2.42 mg/dL High 0.67-1.17 BUN/Creatinine Ratio 21.1 High 8-20 Calcium 8.8 mg/dL Normal 8.6-10.3 Egfr Non- 25.8 >60 Egfr 31.2 >60 9 Laboratory test 10/20/2018 [facility] Thyroxine 5.65 g/dL Low 6.09-12.23 finding [address] [place] [address] [phone] TSH (Thyroid Stim Horm) 2.37 mcIU/mL Normal 0.34-5.60 Free T4 (Free Thyroxine) 0.68 ng/dL Normal 0.61-1.12 Vitamin D Total 25(Oh) 25.1 ng/mL Normal 20-50 10 Thyroid Panel 10/16/2018 [facility] Free T4 (Free <pending> Thyroxine) [place] [address] [phone] Thyroxine <pending> TSH (Thyroid Stim Horm) <pending> Laboratory test 10/16/2018 [facility] Vitamin D <pending> finding Total 25(Oh) [place] [address] [phone] CBC Auto Diff 09/14/2018 [facility] White Blood 8.0 10^3/uL Normal 3.5-1 Count 0[place]8 [place] [address] [phone] Red Blood Count 3.91 10^6/uL Low 4.18-5.48 [...] Blood Cells % 0 Comp Metabolic 09/14/2018 [facility] Sodium 142 mmol/L Normal 135-[address] [place] [phone] [phone] Potassium 4.9 mmol/L Normal 3.5-5.0 Chloride 107 [...] Egfr 35.2 >60 11 Laboratory test 09/14/2018 [facility] Phosphorus 3.1 mg/dL Normal 2.5-5.[address] [place] [address] [phone] Magnesium 1.9 mg/dL Normal 1.9-2.7 Laboratory test 09/10/2018 [facility] PSA Screening 1.215 ng/mL 0-4.0 [address] [place] [address] [phone] Uric Acid 6.4 mg/dL Normal 4.4-7.6 1 [...] URINE COLLECTED FROM 11/03 1100 THROUGH 11/04 9405 8 Because ethnic data is not always [...] Serum levels of PSA measured using the Agnitus DXI Hybritech immunoassay should not be interpreted as absolute evidence of the presence or absence of disease. The PSA value should be used in conjunction with other pertinent clinical diagnostic procedures. The values obtained with different assay methods or kits cannot be used interchangeably. Procedures Date Code Description Status 01/06/2019 37293 Chemodenervation Of Neck Muscles Excluding Larynx, Completed Unilateral 12/08/2018 89769 EKG Tracing & Interpretation Completed 11/18/2018 87674 Sleep Study Unattended,HRT Rate,Oxygen Sat,Resp Completed Effort/Airflow 11/18/2018 29079 Sleep Study Unattended,HRT Rate,Oxygen Sat,Resp Completed Effort/Airflow 11/18/2018 91196 Diffusing Capacity Completed 11/18/2018 13264 Spirometry Incl Graphic Record Completed 10/08/2018 91804 ECHO Transthoracic, Real-Time 2D With Doppler And Completed Color Flow 10/08/2018 84070 ECHO Transthoracic, Real-Time 2D With Doppler And Completed Color Flow 10/07/2018 42383 Holter Monitor Review (24 hr)dr dave & interp only Completed 10/06/2018 29042 Chemodenervation Of Neck Muscles Excluding Larynx, Completed Unilateral 10/06/2018 12814 ECG Monitor/Recording W/Visual Superimposition Completed Scanning 10/06/2018 36620 ECG Monitor/Recording W/Visual Superimposition Completed Scanning 09/23/2018 69223 EKG Tracing & Interpretation Completed 12/10/2016 [id number] Diabetic Retinal Eye Exam Completed 07/07/2014 [id number] Diabetic Retinal Eye Exam Completed 02/02/2014 [id number] Diabetic Retinal Eye Exam Completed 04/30/2012 [id number] Colonoscopy Completed 02/14/2011 [id number] Diabetic Retinal Eye Exam Completed 03/30/2008 [id number] Colonoscopy Completed 01/28/2008 [id number] Mammogram Completed Medical Devices Description No Information Available Encounters Type Date Location Provider Dx Diagnosis Office Visit 02/22/2019 [facility] Arabella G47.33 Obstructive sleep 9:00a [facility] [place] apnea (adult) [facility] (pediatric) J84.10 Pulmonary fibrosis, unspecified Office Visit 02/08/2019 10:30a [facility] Nilam Diaz G47.33 Obstructive sleep Foster, N.P. apnea (adult) (pediatric) J84.10 Pulmonary fibrosis, unspecified R42 Dizziness and giddiness I49.1 Atrial premature depolarization I35.1 Nonrheumatic aortic (valve) insufficiency I10 Essential (primary) hypertension Office Visit 01/20/2019 8:15a Pulmonology And Radha G47.33 Obstructive sleep [facility] Clarice apnea (adult) [facility] (pediatric) J84.10 Pulmonary fibrosis, unspecified Office Visit 12/25/2018 1:00p [facility] Nurse Visit I10 Essential cc (primary) hypertension Office Visit 12/16/2018 10:30a Pulmonology And Radha J84.10 Pulmonary [facility] Clarice fibrosis, [facility] unspecified G47.33 Obstructive sleep apnea (adult) (pediatric) R53.83 Other fatigue Office Visit 12/08/2018 10:20a [facility] David Rossi J84.10 Pulmonary Berna Parikh fibrosis, unspecified G47.33 Obstructive sleep apnea (adult) (pediatric) I10 Essential (primary) hypertension R42 Dizziness and giddiness I49.1 Atrial premature depolarization I35.1 Nonrheumatic aortic (valve) insufficiency Office Visit 11/06/2018 10:40a [facility] Internal Frances Joseph J84.10 Pulmonary Medicine - [facility] fibrosis, unspecified F33.9 Major depressive disorder, recurrent, unspecified I50.32 Chronic diastolic (congestive) heart failure I10 Essential (primary) hypertension M10.9 Gout, unspecified N18.3 Chronic kidney disease, stage 3 (moderate) 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 I50.32 Chronic diastolic Of [facility] Miguel, N.P. (congestive) heart failure I10 Essential (primary) hypertension R42 Dizziness and giddiness I49.1 Atrial premature depolarization Office Visit 10/06/2018 9:30a [facility] Arnie SWillow G24.3 Spasmodic Services Of [facility] Berna Mora torticollis H81.10 Benign paroxysmal vertigo, unspecified ear Office Visit 10/01/2018 2:00p [facility] Nurse Visit I10 Essential (primary) cc hypertension Office Visit 09/23/2018 9:30a [facility] Nilam S. I10 Essential ( primary) Miguel, N.P. hypertension I49.1 Atrial premature depolarization R06.00 Dyspnea, unspecified R42 Dizziness and giddiness R53.83 Other fatigue Assessments Date Code Description Provider 03/05/2019 M84.374A Stress fracture, right foot, initial [...] Rivera, N.P. 09/23/2018 R42 Dizziness and giddiness iNlam Rivera, N.P. 09/23/2018 R53.83 Other fatigue Nilam Rivera N.P. Plan of Treatment Future Appointment(s):03/26/2019 9:45 am - [facility] 11:00 am - Ruth Hooper MD at [facility] Xpmytfzujk76/17/2019 9:00 am - David Parikh M.D. at [place] Xduzszboxz97/ 21/2020 10:00 am - Arnie Mora M.D. at [facility] 2:00 pm - Frances Joseph MD at [facility] Internal Medicine - [facility]04/13/2019 11:30 am - Arnie Mora M.D. at [facility]2018 - Alin Milligan, MDM84.374A Stress fracture, right foot, initial encounter for fractureFollow up:Follow Up: 3 weeks Functional Status Description No Information Available Mental Status Description No Information Available Referrals Description No Information Available
--- OUTSIDE RECORDS SUMMARY | 2019-03-30 16:21 | XMS REPORT | Continuity of Care Document ---
:1935 External Reference #:[id number] Author Name Ruth Hooper MD (transmitted by agent of provider Evonne Workman) Address [address] [place] [address] Care Team Providers Name Role Phone Matt Greco MD - Pulmonary Disease Care Team Information Thermostat Repairer [phone] Radha Oneil MD - Pulmonary Care Team Information Thermostat Repairer Disease Matt Ordonez MD - Nephrology Care Team Information Thermostat Repairer Matt Birch MD - Care Team Information Thermostat Repairer [phone] Otolaryngology Frances Joseph MD - Internal Medicine Care Team Information Thermostat Repairer Problems Active Problems Provider Date Essential hypertension Alex Lobo M.D.,FACP Onset: 03/05/2018 Chronic kidney disease stage 3 Alex Lobo M.D.,FACP Onset: 07/14/2017 Diffuse interstitial pulmonary Alex Lobo M.D.,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 02/18/2017 1 Unit Injection Injection SalvadorotulinumArnie Almendarez M.D. 11/04/2016 1 Unit Injection Injection SalvadorotArnie Marie M.D. 11/04/2016 1 Unit Injection Injection Onabotulinumtoxin [...] M.D. 03/07/2015 1 Unit Injection Injection Onabotulinumtoxin Sergio, Arnie Mora M.D. 10/25/2014 1 Unit Injection Injection Onabotulinumtoxin A, Arnie Mora M.D. 07/27/2014 1 Unit Injection Injection Onabotulinumtoxin Sergio, Arnie Mora M.D. 04/26/2014 1 Unit Injection Injection Onabotulinumtoxin Segrio, Arnie Mora M.D. 01/21/2014 1 Unit Injection [...] CPT Code Status Date Vaccine Lot # [id number] Given 04/26/2018 Influenza Virus Vaccine, Quadrivalent, Split, Preservative Free 66157 Given 04/26/2018 Pneumococcal Conjugate Vaccine 13 Valent For Intramuscular Use 57797 Given 03/26/2017 Influenza Virus Vaccine, Quadrivalent, Split, [id number] Preservative Free 32911 Given 04/12/2016 Influ Virus Vaccine, Quadrivalent, Split Virus, [place] [id number] [address] Given 04/12/2015 Influenza Virus Vaccine, Quadrivalent, Split, [id number] Preservative Free 42807 Given 04/01/2014 Influenza Virus Vaccine, Quadrivalent, Split, [id number] Preservative Free 74781 Given 04/01/2014 Pneumococcal Conjugate Vaccine 13 Valent For Intramuscular Use 33553 Given 04/01/2014 Pneumococcal Conjugate Vaccine 13 Valent For [id number] Intramuscular Use 70642 Given 04/30/2013 Flu Vaccine Split Virus Preservative Free For [id number] Indiv 3Yr Older 19467 Given 03/24/2012 Tdap - Tetanus/Diptheria/Acellular Pertussis [id number] Q2038 Given 03/24/2012 Fluzone Vaccine [id number] Q2038 Given 04/12/2011 Fluzone Vaccine [id number] 21442 Given 05/09/2010 Pneumonia Vaccine 50773 Given 04/08/2010 Influenza Virus 3Yrs & Over 57655 Given 07/18/2008 Zoster (Zostavax) 84093 Given 07/18/2008 Zoster (Zostavax) 30638 Given 07/18/2008 Zoster (Zostavax) [id number] 24630 Given 05/14/2007 Influenza Virus 3Yrs & Over 42101 Given 05/14/2007 Influenza Virus 3Yrs & Over 88405 Given 05/14/2007 Influenza Virus 3Yrs & Over [id number] Vital Signs Date Vital Result Comment 03/30/2019 11:16am Height 69.25 inches 5'9.25" Weight 208.00 lb with shoes Heart Rate 73 /min BP Systolic Sitting 145 mmHg L arm BP Diastolic Sitting 75 mmHg L arm O2 % BldC Oximetry 95 % BMI (Body Mass Index) 30.5 kg/m2 03/23/2019 9:19am Height 69.25 inches 5'9.25" Weight 206.50 lb Heart Rate 74 /min BP Systolic Sitting 182 mmHg ule reg cuff BP Diastolic Sitting 94 mmHg ule reg cuff BP Systolic Standing 178 mmHg ule reg cuff BP Diastolic Standing 94 mmHg ule reg cuff BMI (Body Mass Index) 30.3 kg/m2 Ejection Fraction 60-65% Echo 10/09/18 Results Test Date Facility Test Result H/L Range Note Urea Nitrogen 03/27/2019 [facility] Urine Collection 24 hr [address] [place] [address] [phone] Urine Total Volume 1300 mL Ur Urea Nitrogen Concentration 492 mg/dL BUN Serum 57 mg/dL High 6-24 Urea Nitrogen Clearance 8 mL/min Low 59-99 Creatinine 03/27/2019 [facility] Urine Creatinine 57.29 mg/dL Clearance [address] [place] [address] [phone] Creatinine, Serum 3.42 mg/dL High 0.51-0.95 Creatinine Clearance 15 mL/min Low 97-137 Total Protein 24HR 03/27/2019 [facility] Urine Collection Time 24 hr [address]rine [address] [place] [address] [phone] Urine Total Volume 1300 mL Urine TP Concentration 223 mg/dL Urine Total Protein/24HR 2899 mg/24Hr High 0-165 Comp Metabolic 03/27/2019 [facility] Sodium 143 mmol/L Normal 135-[address] [place] [address] [phone] Chloride 110 mmol/L Normal 101-111 Co2 Carbon [...] Egfr Non- 17.1 >60 Egfr 20.7 >60 2 Potassium 5.4 mmol/L High 3.5-5.0 Anion Gap 6 mmol/L Normal 2-11 Laboratory test 03/27/2019 [facility] Phosphorus 5.1 mg/dL High 2.5-5.0 finding [address] [place] [address] [phone] Magnesium 1.8 mg/dL Low 1.9-2.7 Iron & Iron Binding 03/27/2019 [facility] Iron 75 g/dL Normal 50-212 Capacity [address] [place] [address] [phone] Unsaturated Iron Binding < 266 g/dL Total Iron Binding Capacity 281 g/dL Normal 250-450 Transferrin 201 mg/dL Low 203-362 % Iron Saturation 27 % Normal 15-55 Laboratory test 03/27/2019 [facility] Ferritin 216.6 Normal 24 -336 finding [address] ng/[place] [address] [phone] CBC Auto Diff 03/27/2019 [facility] White Blood 7.2 Normal 3.5 -10.8 [address] Count 10^3/[place] [address] [phone] Red Blood Count 3.81 10^6/uL Low 4.18-5.48 [...] Red Blood Cells % 0.0 Laboratory test 03/16/2019 [facility] Surgical Pathology SEE RESULT [address] [place] [address] [phone] Lipid Profile 01/29/2019 [facility] Triglycerides 114 mg/dL 4 (Trig/Chol/HDL) [place] [address] [phone] Cholesterol 162 mg/dL 5 HDL Cholesterol 46.5 mg/dL 6 LDL Cholesterol 93 mg/dL 7 Liver 01/29/2019 [facility] Direct 0.10 Normal 0.03-0.[address] Bilirubin mg/[place] [address] [phone] Indirect Bilirubin 0.2 mg/dL Low 0.3-1.0 Laboratory test 01/29/2019 [facility] Uric Acid 6.1 mg/dL Normal 4.4-7.[address] [place] [address] [phone] Phosphorus 4.1 mg/dL Normal 2.5-5.0 Magnesium 2.0 mg/dL Normal 1.9-2.7 Total Protein 24HR 01/29/2019 [facility] Urine Collection Time [address] [place] [address] [phone] Urine Total Volume 2200 mL Urine TP Concentration 138 mg/dL Urine Total Protein/24HR 3036 mg/24Hr High 0-165 Creatinine Clearance 01/29/2019 [facility] Urine Collection [address] [place] [address] [phone] Urine Total Volume 2200 mL Creatinine, Serum 2.91 mg/dL High 0.51-0.95 Urine Creatinine Concentration 39.74 mg/dL Creatinine Clearance 21 mL/min Low 97-137 Comp Metabolic 01/29/2019 [facility] Sodium 143 mmol/L Normal 135-[address] [place] [address] [phone] Potassium 4.6 mmol/L Normal 3.5-5.0 Chloride 109 [...] Egfr Non- 20.7 >60 Egfr 25.0 >60 8 CBC Auto 01/29/2019 [facility] White Blood 7.7 10^3/uL Normal 3.5-10.[address] [place] [address] [phone] Red Blood Count 3.85 10^6/uL Low 4.18-5.48 [...] Red Blood Cells % 0.0 Laboratory test 01/06/2019 [facility] Phosphorus 4.0 mg/dL Normal 2.5-5.[address] [place] [address] [phone] Magnesium 1.8 mg/dL Low 1.9-2.7 CBC Auto 01/06/2019 [facility] White Blood 7.4 10^3/uL Normal 3.5-10.[address] [place] [address] [phone] Red Blood Count 3.99 10^6/uL Low 4.18-5.48 [...] Blood Cells % 0.0 Comp Metabolic 01/06/2019 [facility] Sodium 142 mmol/L Normal 135-145 Panel [address] [place] [address] [phone] Potassium 4.8 mmol/L Normal 3.5-5.0 Chloride 108 [...] Egfr Non- 23.2 >60 Egfr 28.1 >60 9 Laboratory 12/10/2018 [facility] TSH (Thyroid 2.12 Normal 0.34 -5.60 test finding 101 [facility] Stim Horm) mcIU/[place] [address] [phone] CBC No Diff 12/10/2018 [facility] White Blood 8.6 10^3/uL Normal 3.5-10.8 [facility] [place] [address] [phone] Red Blood Count 3.84 10^6/uL Low 4.18-5.48 Hemoglobin 12.0 g/dL Low 14.0-18.0 Hematocrit 37 % Low 42-52 Mean Corpuscular Volume 96 fL High 80-94 Mean Corpuscular Hemoglobin 31 pg Normal 27-31 Mean Corpuscular HGB Conc 33 g/dL Normal 31-36 Red Cell Distribution Width 15 % Normal 10-15 Platelet Count 195 10^3/uL Normal 150-450 Mean Platelet Volume 9.6 fL Normal 7.4-10.4 Liver Function 12/10/2018 [facility] Albumin 3.9 g/dL Normal 3.2-5.2 Panel [address] [place] [address] [phone] Total Bilirubin 0.30 mg/dL Normal 0.2-1.0 Direct Bilirubin 0.10 mg/dL Normal 0.03-0.18 Indirect Bilirubin 0.2 mg/dL Low 0.3-1.0 Total Protein 6.8 g/dL Normal 6.4-8.9 Globulin 2.9 g/dL Normal 2-4 Albumin/Globulin Ratio 1.3 Normal 1-3 Alkaline Phosphatase 81 U/L Normal 34-104 Alt 12 U/L Normal 7-52 Ast 15 U/L Normal 13-39 Comp Metabolic 11/04/2018 [facility] Sodium 144 mmol/L Normal 135-145 10 Panel [address] [place] [address] [phone] Potassium 5.0 mmol/L Normal 3.5-5.0 Chloride 109 [...] Egfr Non- 24.0 >60 Egfr 29.0 >60 11 Laboratory test 11/04/2018 [facility] Phosphorus 4.0 mg/dL Normal 2.5-5.0 finding [address] [place] [address] [phone] Magnesium 2.0 mg/dL Normal 1.9-2.7 Total Protein 24HR 11/04/2018 [facility] Urine Collection Time 24 hr Urine [address] [place] [address] [phone] Urine Total Volume 1450 mL Urine TP Concentration 176 mg/dL Urine Total Protein/24HR 2552 mg/24Hr High 0-165 Creatinine 11/04/2018 [facility] Creatinine, 2.65 High 0.51- 0.[address] Serum mg/[place] [address] [phone] Urine Collection Time 24 hr Urine Total Volume 1450 mL Urine Creatinine Concentration 59.56 mg/dL Creatinine Clearance 23 mL/min Low 97-137 Basic Metabolic 10/22/2018 [facility] Sodium 144 mmol/L Normal 135-[address] [place] [address] [phone] Potassium 5.0 mmol/L Normal 3.5-5.0 Chloride 110 mmol/L Normal 101-111 Co2 Carbon Dioxide 27 mmol/L Normal 22-32 Anion Gap 7 mmol/L Normal 2-11 Glucose 70 mg/dL Normal 70-100 Blood Urea Nitrogen 51 mg/dL High 6-24 Creatinine 2.42 mg/dL High 0.67-1.17 BUN/Creatinine Ratio 21.1 High 8-20 Calcium 8.8 mg/dL Normal 8.6-10.3 Egfr Non- 25.8 >60 Egfr 31.2 >60 12 Laboratory test 10/20/2018 [facility] Thyroxine 5.65 g/dL Low 6.09-12.[address] [place] [address] [phone] TSH (Thyroid Stim Horm) 2.37 mcIU/mL Normal 0.34-5.60 Free T4 (Free Thyroxine) 0.68 ng/dL Normal 0.61-1.12 Vitamin D Total 25(Oh) 25.1 ng/mL Normal 20-50 13 Laboratory test 10/16/2018 [facility] Vitamin D Total <pending> finding [address] 25(Oh) [place] [address] [phone] Thyroid Panel 10/16/2018 [facility] Free T4 (Free <pending> [address] DR[address] Thyroxine) [place] [address] [phone] Thyroxine <pending> TSH (Thyroid Stim Horm) <pending> 1 URINE COLLECTED FROM 03/26 0845 THROUGH 03/27 0900 2 Because ethnic data is not always readily [...] 15-29 5 Kidney failure <15 (or dialysis) 3 SEE RESULT BELOW Name: DA GARCIA : [address]: Bhavesh Flaherty MD Acct: [id number] Unit: [id number] AGE: 83 Location: [place] Re03/16/19 SEX: M Status: [facility] SPEC: [id number] KARLA: 03/16/[address] [facility] [address]: Bhavesh Flaherty MD REQ: [id number] RECD: 03/16/19 STATUS: SHONDA WARD DR: Manda [...] Trapezial Neck, Suture [place] 12:00 [place] Margin, and consists of an 11.5 x [...] serially sectioned from 3:00 to 9:00 and maintenance representative sections are submitted in cassettes A through R to include ellipse ends in cassette A and scar in its entirety in cassettes B through R. Signed by and Reported on: Kevon Castro MD [address] END OF REPORT DEPARTMENT OF PATHOLOGY, [address] [place] [address] Kevon Castro M.D. Director [facility] # [id number] 4 Desirable: <150 Borderline High: 150-199 High: 200-499 Very High: >500 5 Desirable: <200 Borderline High: 200-239 High: >239 6 Low: <40 Desirable: 40-60 High: >60 7 Desirable: <100 Near Optimal: 100-129 Borderline High: 130-159 High: 160-189 Very High: >189 8 Because ethnic data is not always [...] 5 Kidney failure <15 (or dialysis) 10 URINE COLLECTED FROM 11/03 1100 THROUGH 11/04 1145 11 Because ethnic data is not always [...] 5 Kidney failure <15 (or dialysis) 12 Because ethnic data is not always readily [...] 15-29 5 Kidney failure <15 (or dialysis) 13 Total 25-Hydroxyvitamin D2 and D3 (25-OH-VitD) <10 ng/mL (severe deficiency) 10-19 ng/mL (mild to moderate deficiency) 20-50 ng/mL (optimum levels) 51-80 ng/mL (increased risk of hypercalciuria) >80 ng/mL (toxicity possible) Procedures Date Code Description Status 03/23/2019 75634 EKG Tracing & Interpretation Completed 01/06/2019 38957 Chemodenervation Of Neck Muscles Excluding Larynx, Completed Unilateral 12/08/2018 47180 EKG Tracing & Interpretation Completed 11/18/2018 09237 Sleep Study Unattended,HRT Rate,Oxygen Sat,Resp Completed Effort/Airflow 11/18/2018 92209 Sleep Study Unattended,HRT Rate,Oxygen Sat,Resp Completed Effort/Airflow 11/18/2018 93693 Diffusing Capacity Completed 11/18/2018 00707 Spirometry Incl Graphic Record Completed 10/08/2018 83215 ECHO Transthoracic, Real-Time 2D With Doppler And Completed Color Flow 10/08/2018 32509 ECHO Transthoracic, Real-Time 2D With Doppler And Completed Color Flow 10/07/2018 37975 Holter Monitor Review (24 hr)dr dave & interp only Completed 10/06/2018 87448 Chemodenervation Of Neck Muscles Excluding Larynx, Completed Unilateral 10/06/2018 87841 ECG Monitor/Recording W/Visual Superimposition Completed Scanning 10/06/2018 74363 ECG Monitor/Recording W/Visual Superimposition Completed Scanning 12/10/2016 [id number] Diabetic Retinal Eye Exam Completed 07/07/2014 466326620 Diabetic Retinal Eye Exam Completed 02/02/2014 825949502 Diabetic Retinal Eye Exam Completed 04/30/2012 [id number] Colonoscopy Completed 02/14/2011 860285035 Diabetic Retinal Eye Exam Completed 03/30/2008 52516653 Colonoscopy Completed 01/28/2008 73101531 Mammogram Completed Medical Devices Description No Information Available Encounters Type Date Location Provider Dx Diagnosis Office Visit 03/23/2019 [facility] David Rossi R42 Dizziness and 9:15a Berna Parikh giddiness G47.33 Obstructive sleep apnea (adult) (pediatric) J84.10 Pulmonary fibrosis, unspecified I10 Essential (primary) hypertension R01.1 Cardiac murmur, unspecified R94.31 Abnormal electrocardiogram [ECG] [EKG] Office Visit 03/05/2019 [facility]ia Mullen84.374A Stress fracture, 11:15a Orthopedics at [facility] initial encounter for fracture Office Visit 02/22/2019 [facility] G47.33 Obstructive 9:00a [facility] sleep apnea [facility] (adult) (pediatric) J84.10 Pulmonary fibrosis, unspecified Office Visit 02/08/2019 10:30a [facility] Nilam Diaz G47.33 Obstructive sleep Foster, N.P. apnea (adult) (pediatric) J84.10 Pulmonary fibrosis, unspecified R42 Dizziness and giddiness I49.1 Atrial premature depolarization I35.1 Nonrheumatic aortic (valve) insufficiency I10 Essential (primary) hypertension Office Visit 01/20/2019 8:15a [facility] And Radha G47.33 Obstructive sleep [facility] apnea (adult) Editorial Writer (pediatric) J84.10 Pulmonary fibrosis, unspecified Office Visit 12/25/2018 1:00p [facility] Nurse Visit I10 Essential cc (primary) hypertension Office Visit 12/16/2018 10:30a [facility] Radha J84.10 Pulmonary [facility] fibrosis, Editorial Writer unspecified G47.33 Obstructive sleep apnea (adult) (pediatric) R53.83 Other fatigue Office Visit 12/08/2018 10:20a [facility] David Plascencia84.10 Pulmonary Berna Parikh fibrosis, unspecified G47.33 Obstructive sleep apnea (adult) (pediatric) I10 Essential (primary) hypertension R42 Dizziness and giddiness I49.1 Atrial premature depolarization I35.1 Nonrheumatic aortic (valve) insufficiency Office Visit 11/06/2018 10:40a [facility] Internal Frances Joseph, J84.10 [facility] unspecified F33.9 Major depressive disorder, recurrent, unspecified I50.32 Chronic diastolic (congestive) heart failure I10 Essential (primary) hypertension M10.9 Gout, unspecified N18.3 Chronic kidney disease, stage 3 (moderate) 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 (congestive) heart failure I10 Essential (primary) hypertension R42 Dizziness and giddiness I49.1 Atrial premature depolarization Office Visit 10/06/2018 9:30a [facility] Arnie Diaz G24.3 Spasmodic Services [facility] Berna Mora torticollis H81.10 Benign paroxysmal vertigo, unspecified ear Office Visit 10/01/2018 2:00p [facility] Nurse Visit I10 Essential (primary) cc hypertension Assessments Date Code Description Provider 03/30/2019 N18.4 Chronic kidney disease, stage 4 (severe) Ruth Hooper MD 03/30/2019 I10 Essential (primary) hypertension Ruth Hooper MD 03/30/2019 G47.33 Obstructive sleep apnea (adult) Ruth Hooper MD (pediatric) 03/30/2019 M10.9 Gout, unspecified Ruth Hooper MD 03/30/2019 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 03/23/2019 G47.33 Obstructive sleep apnea (adult) David Parikh M.D. (pediatric) 03/23/2019 J84.10 Pulmonary fibrosis, unspecified David Parikh M.D. 03/23/2019 I10 Essential (primary) hypertension David [...] N.P. 02/08/2019 I35.1 Aortic valve regurgitation Nilam Rivear, N.P. 02/08/2019 I10 Essential (primary) hypertension Nilam [...] hypertension Frances Joseph MD 11/06/2018 M10.9 Gout, sheba Joseph MD 11/06/2018 N18.3 Chronic kidney disease, [...] Nurse Visit cc Plan of Treatment Future Appointment(s):04/07/2019 10:30 am - Ruth Hooper MD at [facility] Ibzwroawet42/17/2019 9:00 am - David Parikh M.D. at [facility] Iufhbcbhhh24/ 21/2020 10:00 am - Arnie Mora M.D. at [facility] 2:00 pm - Frances Joseph MD at [facility] Internal Medicine - [facility]04/13/2019 11:30 am - Arnie Mora M.D. at [facility]2018 - Ruth Hooper MDN18.4 Chronic kidney disease, stage 4 (severe)New Xrays:US Renal Complete, Ordered: 03/30/19Follow up:1 weekI10 Essential (primary ) [id number] Obstructive sleep apnea (adult) (pediatric)M10.9 Gout, dkovjiuoavyX64.112 Idiopathic pulmonary fibrosis Functional Status Description No Information Available Mental Status Description No Information Available Referrals Description No Information Available
--- OUTSIDE RECORDS SUMMARY | 2019-03-30 16:21 | XMS REPORT | Continuity of Care Document ---
:1935 External Reference #:[id number] Author Name David Parikh M.D. (transmitted by agent of provider Blanca Cano) Address [address] [facility] [address] [place] [address] Care Team Providers Name Role Phone Matt Greco MD - Pulmonary Disease Care Team Information Pharmacy Analyst Radha Oneil MD - Pulmonary Care Team Information Pharmacy Analyst Disease Matt Ordonez MD - Nephrology Care Team Information Pharmacy Analyst [phone] Matt Birch MD - Care Team Information Pharmacy Analyst [phone] Otolaryngology Frances Joseph MD - Internal Medicine Care Team Information Pharmacy Analyst Problems Active Problems Provider Date Essential hypertension Alex Lobo M.D.,FACP Onset: 03/05/2018 Chronic kidney disease stage 3 lAex Lobo M.D.,FACP Onset: 07/14/2017 Diffuse interstitial pulmonary Alex Lobo M.D.,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 10/06/2018 1 Unit Injection Injection Onabotulinumtoxin Arnie Hill M.D. 06/02/2018 1 Unit Injection Injection Duarteabotulinummckayxin Arnie Hill M.D. 06/02/2018 1 Unit Injection Injection Duarteabotulinumcmkayxin Arnie Hill M.D. 02/11/2018 1 Unit Injection Triamcinolone (Kenalog) Alin Milligan MD 11/11/2017 Injection Injection Onabotulinummckayxin Arnie Hill M.D. 10/14/2017 1 Unit Injection Injection Onabotulinumtoxin Arnie Hill M.D. 07/09/2017 1 Unit Injection Injection SalvadorotulinumArnie Almendarez M.D. 02/18/2017 1 Unit Injection Injection SalvadorotArnie Marie M.D. 02/18/2017 1 Unit Injection Injection SalvadorotulinumArnie Almendarez M.D. 11/04/2016 1 Unit Injection Injection Onabotcolemanxin Arnie Hill M.D. 11/04/2016 1 Unit Injection Injection Onabotulinumtoxin [...] M.D. 03/07/2015 1 Unit Injection Injection Onabotulinumtoxin AArnie M.D. 10/25/2014 1 Unit Injection Injection Onabotulinumtoxin A, Arnie Mora M.D. 07/27/2014 1 Unit Injection Injection Onabotulinumtoxin Sergio, Arnie Mora M.D. 04/26/2014 1 Unit Injection Injection Onabotulinumtoxin Sergio, Arnie Mora M.D. 01/21/2014 1 Unit Injection Injection Onabotulinumtoxin Arnie Hill M.D. 01/21/2014 1 Unit Injection Injection Onabotulinumtoxin Arnie Hill M.D. 10/22/2013 1 Unit Injection Injection Onabotulinumtoxin Arnie Hill [...] CPT Code Status Date Vaccine Lot # [id number] Given 04/26/2018 Influenza Virus Vaccine, Quadrivalent, Split, Preservative Free 94213 Given 04/26/2018 Pneumococcal Conjugate Vaccine 13 Valent For Intramuscular Use 73701 Given 03/26/2017 Influenza Virus Vaccine, Quadrivalent, Split, [id number] Preservative Free 49199 Given 04/12/2016 Influ Virus Vaccine, Quadrivalent, Split Virus, [place] [id number] [address] Given 04/12/2015 Influenza Virus Vaccine, Quadrivalent, Split, [id number] Preservative Free 41794 Given 04/01/2014 Influenza Virus Vaccine, Quadrivalent, Split, [id number] Preservative Free 73406 Given 04/01/2014 Pneumococcal Conjugate Vaccine 13 Valent For Intramuscular Use 00271 Given 04/01/2014 Pneumococcal Conjugate Vaccine 13 Valent For [id number] Intramuscular Use 78479 Given 04/30/2013 Flu Vaccine Split Virus Preservative Free For [id number] Indiv 3Yr Older 99955 Given 03/24/2012 Tdap - Tetanus/Diptheria/Acellular Pertussis [id number] Q2038 Given 03/24/2012 Fluzone Vaccine [id number] Q2038 Given 04/12/2011 Fluzone Vaccine [id number] 49560 Given 05/09/2010 Pneumonia Vaccine 86915 Given 04/08/2010 Influenza Virus 3Yrs & Over 83118 Given 07/18/2008 Zoster (Zostavax) 24476 Given 07/18/2008 Zoster (Zostavax) 95878 Given 07/18/2008 Zoster (Zostavax) [id number] 97649 Given 05/14/2007 Influenza Virus 3Yrs & Over 46184 Given 05/14/2007 Influenza Virus 3Yrs & Over 09348 Given 05/14/2007 Influenza Virus 3Yrs & Over [id number] Vital Signs Date Vital Result Comment 03/23/2019 9:19am Height 69.25 inches 5'9.25" Weight 206.50 lb Heart Rate 74 /min BP Systolic Sitting 182 mmHg ule reg cuff BP Diastolic Sitting 94 mmHg ule reg cuff BP Systolic Standing 178 mmHg ule reg cuff BP Diastolic Standing 94 mmHg ule reg cuff BMI (Body Mass Index) 30.3 kg/m2 Ejection Fraction 60-65% Echo 10/09/18 03/05/2019 11:31am Height 69.25 inches 5'9.25" Weight 204.00 lb Heart Rate 70 /min BP Systolic 154 mmHg BP Diastolic 90 mmHg Respiratory Rate 14 /min Pain Level 8 BMI (Body Mass Index) 29.9 kg/m2 Results Test Date Facility Test Result H/L Range Note Laboratory test 03/16/2019 [facility] Surgical Pathology SEE RESULT [address] [place] [address] [phone] Lipid Profile 01/29/2019 [facility] Triglycerides 114 mg/dL 2 (Trig/Chol/HDL) [place] [address] [phone] Cholesterol 162 mg/dL 3 HDL Cholesterol 46.5 mg/dL 4 LDL Cholesterol 93 mg/dL 5 Liver 01/29/2019 [facility] Direct 0.10 Normal 0.03-0.[address] Bilirubin mg/[place] [address] [phone] Indirect Bilirubin 0.2 mg/dL Low 0.3-1.0 Laboratory test 01/29/2019 [facility] Uric Acid 6.1 mg/dL Normal 4.4-7.[address] [place] [address] [phone] Phosphorus 4.1 mg/dL Normal 2.5-5.0 Magnesium 2.0 mg/dL Normal 1.9-2.7 Total Protein 24HR 01/29/2019 [facility] Urine Collection Time [address] [place] [address] [phone] Urine Total Volume 2200 mL Urine TP Concentration 138 mg/dL Urine Total Protein/24HR 3036 mg/24Hr High 0-165 Creatinine Clearance 01/29/2019 [facility] Urine Collection [address] [place] [address] [phone] Urine Total Volume 2200 mL Creatinine, Serum 2.91 mg/dL High 0.51-0.95 Urine Creatinine Concentration 39.74 mg/dL Creatinine Clearance 21 mL/min Low 97-137 Comp Metabolic 01/29/2019 [facility] Sodium 143 mmol/L Normal 135-[address] [place] [address] [phone] Potassium 4.6 mmol/L Normal 3.5-5.0 Chloride 109 [...] Non- 20.7 >60 Egfr 25.0 >60 6 CBC Auto 01/29/2019 [facility] White Blood 7.7 10^3/uL Normal 3.5-10.[address] [place] [address] [phone] Red Blood Count 3.85 10^6/uL Low 4.18-5.48 [...] % Nucleated Red Blood Cells % 0.0 CBC Auto 01/06/2019 [facility] White Blood 7.4 10^3/uL Normal 3.5-10.[address] [place] [address] [phone] Red Blood Count 3.99 10^6/uL Low 4.18-5.48 [...] Blood Cells % 0.0 Comp Metabolic 01/06/2019 [facility] Sodium 142 mmol/L Normal 135-[address] [place] [address] [phone] Potassium 4.8 mmol/L Normal 3.5-5.0 Chloride 108 [...] Egfr Non- 23.2 >60 Egfr 28.1 >60 7 Laboratory test 01/06/2019 [facility] Phosphorus 4.0 mg/dL Normal 2.5-5.[address] [place] [address] [phone] Magnesium 1.8 mg/dL Low 1.9-2.7 Laboratory 12/10/2018 [facility] TSH (Thyroid 2.12 Normal 0.34 -5.[address] Stim Horm) mcIU/[place] [address] [phone] CBC No Diff 12/10/2018 [facility] White Blood 8.6 10^3/uL Normal 3.5-10.[address] [place] [address] [phone] Red Blood Count 3.84 10^6/uL Low 4.18-5.48 Hemoglobin 12.0 g/dL Low 14.0-18.0 Hematocrit 37 % Low 42-52 Mean Corpuscular Volume 96 fL High 80-94 Mean Corpuscular Hemoglobin 31 pg Normal 27-31 Mean Corpuscular HGB Conc 33 g/dL Normal 31-36 Red Cell Distribution Width 15 % Normal 10-15 Platelet Count 195 10^3/uL Normal 150-450 Mean Platelet Volume 9.6 fL Normal 7.4-10.4 Liver Function 12/10/2018 [facility] Albumin 3.9 g/dL Normal 3.2-5.[address] [place] [address] [phone] Total Bilirubin 0.30 mg/dL Normal 0.2-1.0 Direct Bilirubin 0.10 mg/dL Normal 0.03-0.18 Indirect Bilirubin 0.2 mg/dL Low 0.3-1.0 Total Protein 6.8 g/dL Normal 6.4-8.9 Globulin 2.9 g/dL Normal 2-4 Albumin/Globulin Ratio 1.3 Normal 1-3 Alkaline Phosphatase 81 U/L Normal 34-104 Alt 12 U/L Normal 7-52 Ast 15 U/L Normal 13-39 Creatinine 11/04/2018 [facility] Creatinine, 2.65 High 0.51- 0.[address] Serum mg/[place] [address] [phone] Urine Collection Time 24 hr Urine Total Volume 1450 mL Urine Creatinine Concentration 59.56 mg/dL Creatinine Clearance 23 mL/min Low 97-137 Total Protein 24HR 11/04/2018 [facility] Urine Collection Time 24 hr Urine [address] [place] [address] [phone] Urine Total Volume 1450 mL Urine TP Concentration 176 mg/dL Urine Total Protein/24HR 2552 mg/24Hr High 0-165 Laboratory test 11/04/2018 [facility] Phosphorus 4.0 mg/dL Normal 2.5-5.0 finding [address] [place] [address] [phone] Magnesium 2.0 mg/dL Normal 1.9-2.7 Comp Metabolic 11/04/2018 [facility] Sodium 144 mmol/L Normal 135-145 Panel [address] [place] [address] [phone] Potassium 5.0 mmol/L Normal 3.5-5.0 Chloride 109 [...] Egfr Non- 24.0 >60 Egfr 29.0 >60 9 Basic Metabolic 10/22/2018 [facility] Sodium 144 mmol/L Normal 135-145 Panel [address] [place] [address] [phone] Potassium 5.0 mmol/L Normal 3.5-5.0 Chloride 110 mmol/L Normal 101-111 Co2 Carbon Dioxide 27 mmol/L Normal 22-32 Anion Gap 7 mmol/L Normal 2-11 Glucose 70 mg/dL Normal 70-100 Blood Urea Nitrogen 51 mg/dL High 6-24 Creatinine 2.42 mg/dL High 0.67-1.17 BUN/Creatinine Ratio 21.1 High 8-20 Calcium 8.8 mg/dL Normal 8.6-10.3 Egfr Non- 25.8 >60 Egfr 31.2 >60 10 Laboratory test 10/20/2018 [facility] Thyroxine 5.65 g/dL Low 6.09-12.[address] [place] [address] [phone] TSH (Thyroid Stim Horm) 2.37 mcIU/mL Normal 0.34-5.60 Free T4 (Free Thyroxine) 0.68 ng/dL Normal 0.61-1.12 Vitamin D Total 25(Oh) 25.1 ng/mL Normal 20-50 11 Thyroid Panel 10/16/2018 [facility] Free T4 (Free <pending> [address] DR[address] Thyroxine) [place] [address] [phone] Thyroxine <pending> TSH (Thyroid Stim Horm) <pending> Laboratory test 10/16/2018 [facility] Vitamin D Total <pending> finding [address] 25(Oh) [place] [address] [phone] 1 SEE RESULT BELOW Name: DA GARCIA : [address]: Bhavesh Flaherty MD Acct: [id number] Unit: [id number] AGE: 83 Location: OR Re03/16/19 SEX: M Status: REG SD SPEC: [id number] KARLA: 03/16/[address] [facility] [address]: Bhavesh Flaherty MD REQ: [id number] RECD: 03/16/19 STATUS: SHONDA WARD DR: Manda [...] Trapezial Neck, Suture [place] 12:00 [place] Short [place] Margin, and consists of an 11.5 x [...] serially sectioned from 3:00 to 9:00 and area representative sections are submitted in cassettes A through R to include ellipse ends in cassette A and scar in its entirety in cassettes B through R. Signed by and Reported on: Kevon Castro MD 1228 END OF REPORT DEPARTMENT OF PATHOLOGY, [address] [place] [address] Kevon Castro M.D. Director [facility] # [id number] 2 Desirable: <150 Borderline High: 150-199 High: [...] 5 Kidney failure <15 (or dialysis) 7 Because ethnic data is not always readily [...] 15-29 5 Kidney failure <15 (or dialysis) 8 URINE COLLECTED FROM 11/03 1100 THROUGH 11/04 1145 9 Because ethnic data is not always [...] 5 Kidney failure <15 (or dialysis) 10 Because ethnic data is not always readily [...] 15-29 5 Kidney failure <15 (or dialysis) 11 Total 25-Hydroxyvitamin D2 and D3 (25-OH-VitD) <10 ng/mL (severe deficiency) 10-19 ng/mL (mild to moderate deficiency) 20-50 ng/mL (optimum levels) 51-80 ng/mL (increased risk of hypercalciuria) >80 ng/mL (toxicity possible) Procedures Date Code Description Status 03/23/2019 62007 EKG Tracing & Interpretation Completed 01/06/2019 90541 Chemodenervation Of Neck Muscles Excluding Larynx, Completed Unilateral 12/08/2018 18624 EKG Tracing & Interpretation Completed 11/18/2018 31369 Sleep Study Unattended,HRT Rate,Oxygen Sat,Resp Completed Effort/Airflow 11/18/2018 63857 Sleep Study Unattended,HRT Rate,Oxygen Sat,Resp Completed Effort/Airflow 11/18/2018 94892 Diffusing Capacity Completed 11/18/2018 88023 Spirometry Incl Graphic Record Completed 10/08/2018 96936 ECHO Transthoracic, Real-Time 2D With Doppler And Completed Color Flow 10/08/2018 53955 ECHO Transthoracic, Real-Time 2D With Doppler And Completed Color Flow 10/07/2018 15722 Holter Monitor Review (24 hr)dr review & interp only Completed 10/06/2018 91046 Chemodenervation Of Neck Muscles Excluding Larynx, Completed Unilateral 10/06/2018 54291 ECG Monitor/Recording W/Visual Superimposition Completed Scanning 10/06/2018 83005 ECG Monitor/Recording W/Visual Superimposition Completed Scanning 09/23/2018 67759 EKG Tracing & Interpretation Completed 12/10/2016 [id number] Diabetic Retinal Eye Exam Completed 07/07/2014 [id number] Diabetic Retinal Eye Exam Completed 02/02/2014 796283421 Diabetic Retinal Eye Exam Completed 04/30/2012 [id number] Colonoscopy Completed 02/14/2011 [id number] Diabetic Retinal Eye Exam Completed 03/30/2008 53456902 Colonoscopy Completed 01/28/2008 97879061 Mammogram Completed Medical Devices Description No Information Available Encounters Type Date Location Provider Dx Diagnosis Office Visit 03/05/2019 [facility] Srini, M84.374A Stress fracture , 11:15a [facility] right foot, initial encounter for fracture Office Visit 02/22/2019 Pulmonology And Arabella G47.33 Obstructive sleep 9:00a Sleep [facility] Of [facility] [place] apnea (adult) [facility] (pediatric) J84.10 Pulmonary fibrosis, unspecified Office Visit 02/08/2019 10:30a [facility] Nilam SWillow G47.33 Obstructive sleep Miguel N.Izaiah apnea (adult) (pediatric) J84.10 Pulmonary fibrosis, unspecified R42 Dizziness and giddiness I49.1 Atrial premature depolarization I35.1 Nonrheumatic aortic (valve) insufficiency I10 Essential (primary) hypertension Office Visit 01/20/2019 8:15a Pulmonology And Radha G47.33 Obstructive sleep Sleep Services Of MD Clarice apnea (adult) [facility] (pediatric) J84.10 Pulmonary fibrosis, unspecified Office Visit 12/25/2018 1:00p [facility] Nurse Visit I10 Essential cc (primary) hypertension Office Visit 12/16/2018 10:30a Pulmonology And Radha J84.10 Pulmonary Sleep [facility] MD Clarice fibrosis, [facility] unspecified G47.33 Obstructive sleep apnea (adult) (pediatric) R53.83 Other fatigue Office Visit 12/08/2018 10:20a [facility] David Rossi J84.10 Pulmonary Berna Parikh fibrosis, unspecified G47.33 Obstructive sleep apnea (adult) (pediatric) I10 Essential (primary) hypertension R42 Dizziness and giddiness I49.1 Atrial premature depolarization I35.1 Nonrheumatic aortic (valve) insufficiency Office Visit 11/06/2018 10:40a [facility] Internal Frances Jsoeph J84.10 [facility] F33.9 Major depressive disorder, recurrent, unspecified I50.32 Chronic diastolic (congestive) heart failure I10 Essential (primary) hypertension M10.9 Gout, unspecified N18.3 Chronic kidney disease, stage 3 (moderate) 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 (congestive) heart failure I10 Essential (primary) hypertension R42 Dizziness and giddiness I49.1 Atrial premature depolarization Office Visit 10/06/2018 9:30a [facility] Arnie SWillow G24.3 Spasmodic Services Of [facility] Berna Mora torticollis H81.10 Benign paroxysmal vertigo, unspecified ear Office Visit 10/01/2018 2:00p [facility] Nurse Visit I10 Essential (primary) cc hypertension Office Visit 09/23/2018 9:30a [facility] Nilam S. I10 Essential ( primary) Foster, N.P. hypertension I49.1 Atrial premature depolarization R06.00 Dyspnea, unspecified R42 Dizziness and giddiness R53.83 Other fatigue Assessments Date Code Description Provider 03/23/2019 R42 Dizziness and giddiness David Parikh M.D. 03/23/2019 G47.33 Obstructive sleep apnea (adult) David Parikh M.D. (pediatric) 03/23/2019 J84.10 Pulmonary fibrosis, unspecified David Parikh M.D. 03/23/2019 I10 Essential (primary) hypertension David Parikh M.D. 03/23/2019 R01.1 Heart murmur David Parikh M.D. 03/05/2019 M84.374A Stress fracture, [...] N.P. 02/08/2019 I10 Essential (primary) hypertension Nilam Rivera N.P. 01/20/2019 G47.33 Obstructive sleep apnea (adult) [...] N.P. 09/23/2018 R42 Dizziness and giddiness Nilam Rivera N.P. 09/23/2018 R53.83 Other fatigue Nilam Rivera NBre. Plan of Treatment Future Appointment(s):03/26/2019 9:45 am - Alin Milligan MD at [facility]03/30/2019 11:00 am - Ruth Hooper MD at [facility] Altiwfhyip43/17/2019 9:00 am - David Parikh M.D. at [place] Yaeebevbxl00/ 21/2020 10:00 am - Arnie Mora M.D. at [place] [facility] 2:00 pm - Frances Joseph MD at [facility] Internal Medicine - [facility]04/13/2019 11:30 am - Arnie Mora M.D. at [place] [facility]2018 - David Parikh M.D.R42 Dizziness and fyrtogydfC75.33 Obstructive sleep apnea (adult) (pediatric)J84.10 Pulmonary fibrosis, [id number] Essential (primary) hypertensionFollow up:shruthi Demarco 1-2 iprwnJ18.1 Heart murmurNew Orders:Echocardiogram, Ordered: 03/23/19 Functional Status Description No Information Available Mental Status Description No Information Available Referrals Description No Information Available
[2019-03-30 17:20] LABS: ABS Eosinophils 0.4 10^3/ul (0-0.6); ABS Lymphocytes 1.5 10^3/ul (1.0-4.8); ABS Monocytes 0.7 10^3/ul (0-0.8); ABS Neutrophils 5.8 10^3/ul (1.5-7.7); Eosinophil % 4.4 %; Hematocrit 35 % (42-52); Hemoglobin 11.4 g/dL (14.0-18.0); Lymphocyte % 17.4 %; Mean Corpuscular HGB Conc 32 g/dL (31-36); Mean Corpuscular Hemoglobin 31 pg (27-31); Mean Corpuscular Volume 96 fL (80-94); Mean Platelet Volume 9.8 fL (7.4-10.4); Platelet Count 174 10^3/uL (150-450); Red Blood Count 3.69 10^6 /uL (4.18-5.48); Red Cell Distribution Width 15 % (10-15); White Blood Count 8.3 10^3/uL (3.5-10.8)
[2019-03-30 17:37] LABS: Albumin 3.8 g/dL (3.2-5.2); Albumin/Globulin Ratio 1.3 (1-3); BUN/Creatinine Ratio 15.1 (8-20); Calcium 8.4 mg/dL (8.6-10.3); EGFR African American 20.3 (>60); EGFR Non-African American 16.7 (>60); Globulin 2.9 g/dL (2-4); Magnesium 1.9 mg/dL (1.9-2.7); Potassium 4.9 mmol/L (3.5-5.0); Total Bilirubin 0.4 mg/dL (0.2-1.0); Total Protein 6.7 g/dL (6.4-8.9)
[2019-03-30 17:39] LABS: Troponin I 0.01 ng/mL (<0.04)
--- NOTE | 2019-03-30 20:04 | ED ---
Complex/Multi-Sys Presentation - HPI Summary HPI Summary: Pt is an 83 y/o M presenting to the ED with a chief complaint of a high Potassium level. He states he saw Dr. Hooper today who advised he come to the ED for this high level. He reports slight L-sided kidney pain rated at 6/10. He denies vomiting, diarrhea, CP, and SOB. - History Of Current Complaint Chief Complaint: EDGeneral Time Seen by Provider: 03/30/19 19:47 Hx Obtained From: Patient Onset/Duration: Gradual Onset, Still Present Timing: Constant, Days Severity Currently: None Associated Signs And Symptoms: Positive: Back Pain. Negative: SOB, Chest Pain, Vomiting, Diarrhea - Allergies/Home Medications Allergies/Adverse Reactions: Allergies Allergy/AdvReac Type Severity Reaction Status Date / Time levofloxacin Allergy STRAIN OF Verified 03/16/19 14:01 [facility] [place] [facility] Home Medications: Home Medications Aspirin EC TAB* [Ecotrin EC Low Dose 81 MG*] 81 mg PO DAILY 03/30/19 [History Confirmed 03/30/19] amLODIPine TAB* [Norvasc 5 mg TAB*] 2.5 mg PO DAILY 03/30/19 [History Confirmed 03/30/19] PMH/Surg Hx/FS Hx/Imm Hx Previously Healthy: Yes Endocrine/Hematology History: Denies: Hx Diabetes, Hx Systemic Lupus Erythematosus Cardiovascular History: Reports: Hx Angina, Hx Hypercholesterolemia, Other Cardiovascular Problems/Disorders Denies: Hx Congestive Heart Failure, Hx Pacemaker/ICD Comment Only: Hx Hypertension - DENIES Respiratory History: Reports: Other Respiratory Problems/Disorders - PATIENT STATES PULMONARY FIBROSIS Denies: Hx Asthma, Hx Chronic Obstructive Pulmonary Disease (COPD) GI History: Denies: Other GI Disorders History: Reports: Hx Kidney Stones - HX OF, Hx Renal Disease - STONES Denies: Hx Dialysis Musculoskeletal History: Reports: Hx Arthritis - HANDS AND KNEES, Other Musculoskeletal History - chronic torticollis Denies: Hx Rheumatoid Arthritis Sensory History: Reports: Hx Cataracts, Hx Contacts or Glasses - glasses Denies: Hx Hearing Aid Opthamlomology History: Reports: Hx Cataracts, Hx Contacts or Glasses - glasses Psychiatric History: Reports: Hx Anxiety - ON MEDICATION, Hx Depression - ON MEDICATION FOR - Cancer History Cancer Type, Location and Year: HX MELANOMA Hx Chemotherapy: No - Surgical History Surgery Procedure, Year, and Place: JOSEF-2006, [facility] [place]. LITHOTRIPSY-URINARY STENTS -2010, [facility] [place]. REMOVED MELANOMA ON BACK. LEFT SHOULDER DISLOCATION 12/31/2012 [facility] [place]. right shoulder fracture 2016. CATARACTS REMOVED. 4 PROCEDURES FOR SKIN CANCER Hx Anesthesia Reactions: No Infectious Disease History: No Infectious Disease History: Denies: Traveled Outside the [place] in Last 30 Days - Family History Known Family History: Positive: Respiratory Disease - Social History Alcohol Use: Rare Alcohol Amount: 3-4 DRINKS/WEEK Hx Substance Use: No Substance Use Type: Reports: None Hx Tobacco Use: No Smoking Status (MU): Never Smoked Tobacco Have You Smoked in the Last Year: No Review of Systems Negative: Chest Pain Negative: Shortness Of Breath Negative: Vomiting, Diarrhea Positive: Myalgia - some back pain All Other Systems Reviewed And Are Negative: Yes Physical Exam - Summary Physical Exam Summary: Constitutional: Well-developed, Well-nourished, Alert. (-) Distressed Skin: Warm, Dry HENT: Normocephalic; Atraumatic Eyes: Conjunctiva normal Neck: Musculoskeletal ROM normal neck. (-) JVD, (-) Stridor, (-) Tracheal deviation Cardio: Rhythm regular, rate normal, Heart sounds normal; Intact distal pulses; The pedal pulses are 2+ and symmetric. Radial pulses are 2+ and symmetric. (-) Murmur Pulmonary/Chest wall: Effort normal. (-) Respiratory distress, (-) Wheezes, (-) Rales Abd: Soft, (-) tenderness, (-) Distension, (-) Guarding, (-) Rebound Musculoskeletal: (-) Edema Lymph: (-) Cervical adenopathy Neuro: Alert, Oriented x3 Psych: Mood and affect Normal Back: No CVA tenderness Triage Information Reviewed: Yes Vital Signs On Initial Exam: Initial Vitals Temp Pulse Resp BP Pulse Ox 98.4 F 71 18 156/88 98 03/30/19 16:09 03/30/19 16:09 03/30/19 16:09 03/30/19 16:09 03/30/19 16:09 Vital Signs Reviewed: Yes Procedures - Sedation Patient Received Moderate/Deep Sedation with Procedure: No Diagnostics - Vital Signs Vital Signs Temp Pulse Resp BP Pulse Ox 03/30/19 17:44 98.6 F 78 18 150/88 99 03/30/19 16:09 98.4 F 71 18 156/88 98 - Laboratory Lab Results: Lab Results 03/30/19 03/30/19 Range/Units 17:13 17:13 WBC 8.3 (3.5-10.8) 10^3/uL RBC 3.69 L (4.18-5.48) 10^6 /uL Hgb 11.4 L (14.0-18.0) g/dL Hct 35 L (42-52) % MCV 96 H (80-94) fL MCH 31 (27-31) pg MCHC 32 (31-36) g/dL RDW 15 (10-15) % Plt Count 174 (150-450) 10^3/uL MPV 9.8 (7.4-10.4) fL Neut % (Auto) 69.0 % Lymph % (Auto) 17.4 % [place] % (Auto) 8.6 % Eos % (Auto) 4.4 % Baso % (Auto) 0.6 % Absolute Neuts (auto) 5.8 (1.5-7.7) 10^3/ul Absolute Lymphs (auto) 1.5 (1.0-4.8) 10^3/ul Absolute Monos (auto) 0.7 (0-0.8) 10^3/ul Absolute Eos (auto) 0.4 (0-0.6) 10^3/ul Absolute Basos (auto) 0.0 (0-0.2) 10^3/ul Absolute Nucleated RBC 0.0 10^3/ul Nucleated RBC % 0.0 Sodium 142 (135-145) mmol/L Potassium 4.9 (3.5-5.0) mmol/L Chloride 111 (101-111) mmol/L Carbon Dioxide 22 (22-32) mmol/L Anion Gap 9 (2-11) mmol/L BUN 53 H (6-24) mg/dL Creatinine 3.52 H (0.67-1.17) mg/dL Est GFR ( Amer) 20.3 (>60) Est GFR (Non-Af Amer) 16.7 (>60) BUN/Creatinine Ratio 15.1 (8-20) Glucose 78 (70-100) mg/dL Calcium 8.4 L (8.6-10.3) mg/dL Magnesium 1.9 (1.9-2.7) mg/dL Total Bilirubin 0.40 (0.2-1.0) mg/dL AST 15 (13-39) U/L ALT 10 (7-52) U/L Alkaline Phosphatase 79 (34-104) U/L Troponin I 0.01 (<0.04) ng/mL Total Protein 6.7 (6.4-8.9) g/dL Albumin 3.8 (3.2-5.2) g/dL Globulin 2.9 (2-4) g/dL Albumin/Globulin Ratio 1.3 (1-3) Result Diagrams: 03/30/19 17:13 03/30/19 17:13 Lab Statement: Any lab studies that have been ordered have been reviewed, and results considered in the medical decision making process. - Ultrasound Renal US Ultrasound Interpretation Completed By: Radiologist Summary of Ultrasound Findings: Bilateral atrophic kidneys without hydronephrosis. Small cyst on R and one on left. ED physician has reviewed this report. - EKG 1701 Cardiac Rate: NL - 69bpm EKG Rhythm: Sinus Rhythm ST Segment: Normal Ectopy: PACs Summary of EKG Findings: EKG at 1701 shows NSR at 69bpm with multiple PACs. No STEMI. Complex Multi-Symp Course/Dx Course Of Treatment: Patient was sent in from the insurance follow up representative with hyperkalemia. Patient had no evidence of hyperkalemia on EKG. Patient's potassium was 4.9 here. Patient's been having worsening C daily per the insurance follow up representative with numbers at his baseline here. Patient had an ultrasound at the request which showed no hydronephrosis. Patient is currently stable so he was discharged for a nephrology follow-up. - Diagnoses Provider Diagnoses: Chronic kidney disease, Hyperkalemia, Idiopathic pulmonary fibrosis, Atrophic kidney Discharge ED - Sign-Out/Discharge Documenting (check all that apply): Patient Departure - Discharge Plan Condition: Stable Disposition: HOME Patient Education Materials: Chronic Kidney Disease (ED), Potassium Content of Foods List (ED), Hyperkalemia (ED) Referrals: Frances Joseph MD [Primary Care Provider] - Additional Instructions: Follow up with Dr. Jarvis within the next 1-3 days. Come back to the emergency department with any difficulty urinating, palpitations, or other concerning symptoms. - Billing Disposition and Condition Condition: STABLE Disposition: Home - Attestation Statements Document Initiated by Alexander: Yes Documenting Scribe: Emma King Provider For Whom Scribe is Documenting (Include Credential): Dayron Cordoba MD. Scribe Attestation: Emma Fortune, scribed for Dayron Cordoba MD. on 03/31/19 at 0107. Scribe Documentation Reviewed: Yes Provider Attestation: The documentation as recorded by the forestibeEmma accurately reflects the service I personally performed and the decisions made by Dayron fam MD. Status of Scribe Document: Viewed
[2019-03-30 20:54] LABS: Urine Appearance Clear; Urine Bacteria 1+ (Absent); Urine Bilirubin Negative (Negative); Urine Blood 1+ (Negative); Urine Color Straw; Urine Glucose Negative (Negative); Urine Ketones Negative (Negative); Urine Nitrite Negative (Negative); Urine Protein 2+(100 mg/dL) (Negative); Urine Red Blood Cell 1+(3-5/hpf) (Absent); Urine Specific Gravity 1.009 (1.010-1.030); Urine Squamous Epithelial Cell Present (Absent); Urine Urobilinogen Negative (Negative); Urine White Blood Cell Absent (Absent)
[2019-03-30 22:27] VITALS: BP 188/94
== END 2019-03-30 22:20 | disposition home or self-care (01) ==
LOC: ED 16:07
DX: E87.5 Hyperkalemia (principal); J84.112 Idiopathic pulmonary fibrosis; N26.1 Atrophy of kidney (terminal); N28.1 Cyst of kidney, acquired; N18.4 Chronic kidney disease, stage 4 (severe); E78.00 Pure hypercholesterolemia, unspecified; F41.9 Anxiety disorder, unspecified; F32.9 Major depressive disorder, single episode, unspecified; Z88.1 Allergy status to other antibiotic agents; Z85.820 Personal history of malignant melanoma of skin; Z90.49 Acquired absence of other specified parts of digestive tract; Z79.82 Long term (current) use of aspirin; Z79.899 Other long term (current) drug therapy
CPT/HCPCS: 36415; 76775; 80048; 80053; 81003; 81015; 82570; 82585; 82595; 83036; 83516; 83520; 83735; 83883; 84155; 84156; 84165; 84484; 85025; 85652; 86038; 86140; 86160; 86225; 86255; 86256; 86431; 86704; 86706; 86803; 87086; 87340; 87389; 93005; 99282

== ENCOUNTER → 2019-05-11 12:37 | Day surgery (SDC) | payer MEDICARE, OTHER ==
[~2019-05-11 12:37] MED LIST changes: +Acetaminophen TAB* 325 MG ONE; +Acetaminophen TAB* 325 MG PO ONE; +Artificial Tear OPHTH.OINT* 3.5 GM ONE; +BSS OPTH.SOL* BTL ONE; -Dexamethasone IV* 4 MG/ML 1 ML (4 MG) ONE; +EPHEDrine (Pressors)* 50 MG/ML VIAL ONE; -Famotidine IV* 10 MG/ML 2 ML (20 mg) IV ONE; -Famotidine IV* 10 MG/ML 2 ML (20 mg) ONE; +HYDROcodone/ACETAMIN 5-325 MG* 1 TAB PO PRN; -Lactated Ringers 1000 ML Bag* 1,000 ML IV SCH; +Midazolam* 1 MG/ML 2 ML VIAL (2 MG) ONE; -Midazolam* 1 MG/ML 5 ML VIAL (5 MG) ONE; +Mineral Oil Sterile, TOPICAL* 25 ML BTL ONE; +NS 0.9% 1000 ML** 1,000 ML IV SCH; -Ondansetron INJ* 2 MG/ML VIAL ONE; +Phenylephrine 40 MCG/ML SYRINGE ONE; -Propofol* 10 MG/ML 20 ML BTL ONE; -ceFAZolin 2 GM PREMIX in ORs 2 GM/50 ML BAG ONE; +ceFAZolin 2 GM in NS PREMIX(*) 2 GM/100 ML BAG IVPB ONE
[2019-05-11 18:47] VITALS: BP 114/74
== END | disposition home or self-care (01) ==
LOC: OR 12:37
PROVIDERS: ATTEND Plastic Surgery
DX: C44.329 Squamous cell carcinoma of skin of other parts of face (principal); Z79.82 Long term (current) use of aspirin; M43.6 Torticollis
CPT/HCPCS: 88305; 88331; 88332; A9270-GY; J0690; J2250; J3010; J3490